=== PATIENT | male | born 1955 | race Caucasian/White ===

== ENCOUNTER 2022-09-09 | Inpatient (IN) ==
--- NOTE | 2022-09-09 00:17 | Emergency Department Note ---
History of Present Illness General Chief complaint: Ankle Pain Stated complaint: ETOH Time Seen by Provider: 09/09/22 00:06 History of Present Illness 67-year-old male presents emergency department he states that he was drinking beer and 1/5 of vodka tonight he was taking a nap he woke up he had to go to the bathroom as he was walking to the bathroom his right leg gave out and he heard a crunching sound in his leg. Patient states he was able to make it to the bathroom to urinate but was having difficulty walking on his right leg. Patient denies hitting his head denies neck pain denies chest pain denies shortness of breath denies any presyncopal symptoms prior to to this event. Patient states that he has neuropathy in his leg just gave out. Patient has no other complaints. There are no other mitigating or alleviating factors. Home Medications Medication Instructions Recorded Confirmed Type albuterol sulfate 90 mcg/actuation 2 puff inhalation DIRECTED PRN 09/09/22 09/09/22 History aerosol inhaler Shortness Of Breath amlodipine 5 mg tablet 5 mg PO DAILY 09/09/22 09/09/22 History aspirin 81 mg tablet,delayed 81 mg PO DAILY 09/09/22 09/09/22 History release atorvastatin 80 mg tablet 80 mg PO DAILY 09/09/22 09/09/22 History cholecalciferol (vitamin D3) 25 25 mcg PO DAILY 09/09/22 09/09/22 History mcg (1,000 unit) capsule (Vitamin D3) cyanocobalamin (vitamin B-12) 1,000 mcg PO DAILY 09/09/22 09/09/22 History 1,000 mcg tablet (Vitamin B-12) doxepin 6 mg tablet 6 mg PO HS PRN Sleep 09/09/22 09/09/22 History duloxetine 20 mg capsule,delayed 20 mg PO DAILY 09/09/22 09/09/22 History release sprinkle ezetimibe 10 mg tablet (Zetia) 10 mg PO DAILY 09/09/22 09/09/22 History gabapentin 300 mg capsule 300 mg PO TID 09/09/22 09/09/22 History lisinopril 20 mg tablet 20 mg PO BID 09/09/22 09/09/22 History metoprolol tartrate 50 mg tablet 50 mg PO BID 09/09/22 09/09/22 History multivitamin 1 tab PO DAILY 09/09/22 09/09/22 History omeprazole 20 mg tablet,delayed 20 mg PO DAILY 09/09/22 09/09/22 History release potassium citrate 99 mg capsule 99 mg PO DAILY 09/09/22 09/09/22 History Allergies Allergy/AdvReac Type Severity Reaction Status Date / Time No Known Allergies Allergy Verified 09/09/22 00:48 Past Med/Surg History Social History Smoking Status: Current every day smoker Tobacco Type: Cigarettes Feels Safe at Home: Yes Immunizations: Past medical history hypertension, prior stroke Review of Systems A total of 10 systems reviewed and were otherwise negative Musculoskeletal: + joint pain and + deformity Physical Exam Vital Signs Vital Signs - 24 hr 09/09/22 00:11 09/09/22 00:21 09/09/22 00:21 Temperature 36.8 C 36.8 C Temperature Source Oral Oral Pulse Rate 76 72 Pulse Rate [Apical] Pulse Rate [Left Finger] 72 Pulse Rhythm [Apical] Pulse Strength [Apical] Respiratory Rate 18 18 Respiratory Effort / Characteristics Respiratory Depth Respiratory Pattern Blood Pressure 85/59 L Blood Pressure [Right Arm] 85/59 L Blood Pressure Mean 67 Blood Pressure Mean [Right Arm] 67 Blood Pressure Position Lying Pulse Oximetry 93 95 Oxygen Delivery Method Non-rebreather Non-rebreather Oxygen Flow Rate 5 Sepsis Recent Fever Within 48 Hours No Sepsis New/Unexplained Change in Mental Status No Sepsis Action Taken by Nursing No Action Required 09/09/22 00:21 09/09/22 02:21 Temperature Temperature Source Pulse Rate 71 Pulse Rate [Apical] 74 Pulse Rate [Left Finger] Pulse Rhythm [Apical] Regular Pulse Strength [Apical] Normal Respiratory Rate 20 Respiratory Effort / Characteristics Non-Labored Spontaneous Respiratory Depth Normal Respiratory Pattern Regular Blood Pressure Blood Pressure [Right Arm] 113/78 Blood Pressure Mean Blood Pressure Mean [Right Arm] 89 Blood Pressure Position Pulse Oximetry 5 L 92 Oxygen Delivery Method Non-rebreather Nasal Cannula Oxygen Flow Rate 4 Sepsis Recent Fever Within 48 Hours Sepsis New/Unexplained Change in Mental Status Sepsis Action Taken by Nursing GENERAL: Patient is awake alert in no acute distress patient is resting comfortably and showing no signs of anxiety EYES: The conjunctivae are clear. The pupils are round and reactive. EARS, NOSE, MOUTH AND THROAT: The nose is without any evidence of any deformity. Mucous membranes are moist. Tongue is midline. NECK: The neck is nontender and supple. RESPIRATORY: Normal respiratory effort is noted there is no evidence of wheezing rhonchi or rales CARDIOVASCULAR: Regular rate and rhythm noted there no murmurs rubs or gallops normal S1 normal S2. GASTROINTESTINAL: The abdomen is soft. Abdomen is nontender. PELVIS: The Pelvis is stable. No tenderness to palpation is noted. BACK: No midline tenderness or or step-off noted range of motion in flexion extension as well as rotation no signs of muscle spasm noted MUSCULOSKELETAL/EXTREMITIES: Right lower extremity - there is an obvious deformity of the distal tib-fib region; patient is neurovascularly intact distally SKIN: There is no obvious evidence of any rash. There are no petechiae, pallor or cyanosis noted. NEUROLOGIC: Patient is awake alert and oriented x3 strength is symmetric Course Reevaluation(s) Reevaluation #1: Patient had an episode of low blood pressure 66/48, patient was started on IV fluids, the patient is alert talking to me GCS of 15 Time: 01:06 Reevaluation #2: Patient was much improved after 2 L of fluid, the patient was also started on IV Zosyn, the case was discussed with the hospitalist for admission Time: 03:37 Consultations Consultation #1: Case was discussed with the [facility] hospitalist for admission Administered Medications Discontinued Medications Sodium Chloride (Nss 1000ml) 1,000 mls @ 999 mls/hr IV .Q1H1M ONE Stop: 09/09/22 01:56 Last Infusion: 09/09/22 02:49 Dose: 0 mls/hr Documented By: Admin: 09/09/22 01:57 Dose: 999 mls/hr Documented By: BRYAN Sodium Chloride (Nss 1000ml) 1,000 mls @ 999 mls/hr IV .Q1H1M ONE Stop: 09/09/22 02:53 Last Infusion: 09/09/22 02:49 Dose: 0 mls/hr Documented By: Admin: 09/09/22 01:58 Dose: 999 mls/hr Documented By: BRYAN Piperacillin Sod/Tazobactam Sod (Zosyn) 4.5 gm in 120 mls @ 240 mls/hr IV NOW ONE Stop: 09/09/22 02:22 Last Infusion: 09/09/22 03:01 Dose: 0 mls/hr Documented By: Admin: 09/09/22 02:33 Dose: 240 mls/hr Documented By: BRYAN Critical Care Time Critical Care Time: Yes Total Critical Care Time: 45 I have personally spent greater than 45 minutes of critical care time in the direct management of this patient. This includes bedside care, interpretation of diagnostic studies, and testing, discussion with consultants, patient, and family members, and other required patient management activities. These minutes are in excess of all separately billable procedures. Medical Decision Making Medical Records Attestation: I reviewed the patient's medical records. Home Medications Current Medication List: was personally reviewed by me Laboratory Data Attestation: I reviewed the patient's lab results. Patient has an elevated creatinine 09/09/22 00:16 09/09/22 00:16 Lab Results 09/09/22 09/09/22 09/09/22 Range/Units 00:16 00:16 00:16 WBC 11.94 H (4.8-10.8) K/ul RBC 4.13 L (4.70-6.10) M/uL Hgb 13.6 L (14.0-18.0) g/dl Hct 39.2 L (42.0-52.0) % MCV 94.9 (80.0-100.0) fL MCH 32.9 (25.0-34.0) pg MCHC 34.7 (32.0-36.0) g/dL RDW Std Deviation 47.2 H (36.4-46.3) fL RDW Coeff of Shayan 13.5 (11.5-14.5) % Plt Count 221 (130-400) K/uL MPV 11.1 (9.4-12.4) fL Immature Gran % (Auto) 0.3 % Neut % (Auto) 36.2 % Lymph % (Auto) 50.2 % Grand % (Auto) 10.2 % Eos % (Auto) 2.3 % Baso % (Auto) 0.8 % Neut # (Auto) 4.32 (1.40-6.50) K/uL Lymph # (Auto) 5.99 H (1.2-3.4) K/uL Grand # (Auto) 1.22 H (0.11-0.59) K/uL Eos # (Auto) 0.28 (0-0.50) K/uL Baso # (Auto) 0.09 (0-0.2) K/uL Immature Gran # (Auto) 0.04 (0.01-0.20) K/uL RBC Morphology Unremarkable PT 11.0 (9.0-12.0) Seconds INR 1.0 (0.9-1.1) Sodium 133 L (136-145) mmol/L Potassium 4.3 (3.5-5.1) mmol/L Chloride 99 (98-107) mmol/L Carbon Dioxide 19 L (21-32) mmol/L Anion Gap 15 H (3-11) BUN 18 (6-23) mg/dl Creatinine 3.50 H (0.6-1.4) mg/dl Est Cr Clr Drug Dosing 21.7 ml/min Est GFR ( Amer) 19.8 ml/min Est GFR (Non-Af Amer) 17.1 ml/min BUN/Creatinine Ratio 5.1 L (10-20) Glucose 105 H (70-99(Fasting)) mg/dl Lactate (0.4-2.0) mmol/L Calcium 9.4 (8.5-10.1) mg/dl Magnesium 2.1 (1.7-2.4) mg/dl Total Bilirubin 0.9 (0.2-1.0) mg/dl AST 21 (13-39) U/L ALT 20 (7-52) U/L Alkaline Phosphatase 60 (34-104) U/L Total Protein 7.5 (6.0-8.3) gm/dl Albumin 4.0 (3.4-5.0) gm/dl Globulin 3.5 (2.5-4.0) gm/dl Albumin/Globulin Ratio 1.1 (0.9-2) Ethyl Alcohol mg/dL (<10.0) mg/dl SARS-CoV-2, RNA, NAAT (NEGATIVE) 09/09/22 09/09/22 09/09/22 Range/Units 00:16 00:20 02:15 WBC (4.8-10.8) K/ul RBC (4.70-6.10) M/uL Hgb (14.0-18.0) g/dl Hct (42.0-52.0) % MCV (80.0-100.0) fL MCH (25.0-34.0) pg MCHC (32.0-36.0) g/dL RDW Std Deviation (36.4-46.3) fL RDW Coeff of Shayan (11.5-14.5) % Plt Count (130-400) K/uL MPV (9.4-12.4) fL Immature Gran % (Auto) % Neut % (Auto) % Lymph % (Auto) % Grand % (Auto) % Eos % (Auto) % Baso % (Auto) % Neut # (Auto) (1.40-6.50) K/uL Lymph # (Auto) (1.2-3.4) K/uL Grand # (Auto) (0.11-0.59) K/uL Eos # (Auto) (0-0.50) K/uL Baso # (Auto) (0-0.2) K/uL Immature Gran # (Auto) (0.01-0.20) K/uL RBC Morphology PT (9.0-12.0) Seconds INR (0.9-1.1) Sodium (136-145) mmol/L Potassium (3.5-5.1) mmol/L Chloride (98-107) mmol/L Carbon Dioxide (21-32) mmol/L Anion Gap (3-11) BUN (6-23) mg/dl Creatinine (0.6-1.4) mg/dl Est Cr Clr Drug Dosing ml/min Est GFR ( Amer) ml/min Est GFR (Non-Af Amer) ml/min BUN/Creatinine Ratio (10-20) Glucose (70-99(Fasting)) mg/dl Lactate 2.6 H* (0.4-2.0) mmol/L Calcium (8.5-10.1) mg/dl Magnesium (1.7-2.4) mg/dl Total Bilirubin (0.2-1.0) mg/dl AST (13-39) U/L ALT (7-52) U/L Alkaline Phosphatase (34-104) U/L Total Protein (6.0-8.3) gm/dl Albumin (3.4-5.0) gm/dl Globulin (2.5-4.0) gm/dl Albumin/Globulin Ratio (0.9-2) Ethyl Alcohol mg/dL 220.8 H (<10.0) mg/dl SARS-CoV-2, RNA, NAAT NEGATIVE (NEGATIVE) Imaging Data Attestation: I personally reviewed and interpreted this imaging study as follows: My Impression: Tib-fib x-ray interpreted by me positive for proximal fibula fracture and distal tibia fracture; chest x-ray interpreted by me negative for infiltrate CTs reviewed by me and appreciate radiologist interpretation ECG Data Attestation: I personally reviewed and interpreted this ECG as follows: Additional Comments: EKG interpreted by me normal sinus rhythm rate of 69 normal intervals normal axis no obvious ST segment elevation or depression MDM Narrative Medical decision making differential diagnosis includes tib-fib fracture, sprain strain contusion, alcohol intoxication Plan is to check labs, x-ray EMS report was reviewed by me Patient underwent trauma scans Patient has a proximal fibula and distal tibia fractures Patient clinically is septic, has a pneumonia in the left lower lobe was hypotensive has an elevated alcohol level, had received IV fluids, had received IV antibiotics Patient will be admitted for orthopedic fractures, sepsis Impression & Plan Tibia/fibula fracture, Acute hypotension, Alcohol intoxication, Acute renal insufficiency, Sepsis, Pneumonia Discharge Plan Visit Data Chief Complaint: Ankle Pain Stated Complaint: ETOH ED Provider: Paul Dutton Discharge Problem: Tibia/fibula fracture, Acute hypotension, Alcohol intoxication, Acute renal insufficiency, Sepsis, Pneumonia Patient Disposition: Admitted As Inpatient Forms Stand Alone Forms: My [facility] Prescriptions Prescriptions: No Action multivitamin Tablet 1 tab PO DAILY atorvastatin 80 mg Tablet 80 mg PO DAILY lisinopril 20 mg Tablet 20 mg PO BID cyanocobalamin (vitamin B-12) [Vitamin B-12] 1,000 mcg Tablet 1,000 mcg PO DAILY amlodipine 5 mg Tablet 5 mg PO DAILY aspirin 81 mg Tablet,Delayed Release (Dr/Ec) 81 mg PO DAILY metoprolol tartrate 50 mg Tablet 50 mg PO BID gabapentin 300 mg Capsule 300 mg PO TID albuterol sulfate 90 mcg/actuation Hfa Aerosol Inhaler 2 puff INHALATION DIRECTED PRN (Reason: Shortness Of Breath) cholecalciferol (vitamin D3) [Vitamin D3] 25 mcg (1,000 unit) Capsule 25 mcg PO DAILY ezetimibe [Zetia] 10 mg Tablet 10 mg PO DAILY omeprazole 20 mg Tablet,Delayed Release (Dr/Ec) 20 mg PO DAILY doxepin 6 mg Tablet 6 mg PO HS PRN (Reason: Sleep) duloxetine 20 mg Capsule, Delayed Rel Sprinkle 20 mg PO DAILY potassium citrate 99 mg Capsule 99 mg PO DAILY Referrals Referrals: PCP,NO [Primary Care Provider] -
[2022-09-09 00:45] LABS: Hematocrit (blood only) 39.2 % (42.0-52.0); Hemoglobin 13.6 g/dl (14.0-18.0); Mean Corpuscular Hemoglobin 32.9 pg (25.0-34.0); Mean Corpuscular Hgb Conc 34.7 g/dL (32.0-36.0); Mean Corpuscular Volume 94.9 fL (80.0-100.0); Mean Platelet Volume 11.1 fL (9.4-12.4); Platelet Count 221 K/uL (130-400); RDW Coefficient of Variation 13.5 % (11.5-14.5); RDW Standard Deviation 47.2 fL (36.4-46.3); Red Blood Count 4.13 M/uL (4.70-6.10); White Blood Count 11.94 K/ul (4.8-10.8)
[2022-09-09] MEDS ORDERED: SODIUM CHLORIDE 0.9% 1000ML 1,000 ML IV ONE ×2 (00:56→01:53)
[2022-09-09 01:01] LABS: Albumin Globulin Ratio 1.1 (0.9-2); BUN Creatinine Ratio 5.1 (10-20); Bilirubin,Total 0.9 mg/dl (0.2-1.0); Calcium 9.4 mg/dl (8.5-10.1); Creatinine Clr Calc Pharmacy 21.7 ml/min; Est GFR (African American) 19.8 ml/min; Est GFR (Non-African American) 17.1 ml/min; Globulin 3.5 gm/dl (2.5-4.0); Magnesium 2.1 mg/dl (1.7-2.4); Potassium 4.3 mmol/L (3.5-5.1); Total Protein 7.5 gm/dl (6.0-8.3)
[2022-09-09 01:24] LABS: Basophils # (auto) 0.09 K/uL (0-0.2); Basophils % (auto) 0.8 %; Eosinophils # (auto) 0.28 K/uL (0-0.50); Eosinophils % (auto) 2.3 %; Immature Granulocytes # (auto) 0.04 K/uL (0.01-0.20); Immature Granulocytes % (auto) 0.3 %; Lymphocytes # (auto) 5.99 K/uL (1.2-3.4); Lymphocytes % (auto) 50.2 %; Monocytes # (auto) 1.22 K/uL (0.11-0.59); Monocytes % (auto) 10.2 %; Neutrophils # (auto) 4.32 K/uL (1.40-6.50); Neutrophils % (auto) 36.2 %; RBC Morphology Unremarkable
[2022-09-09] MEDS ORDERED: PIPERACILLIN/TAZOBACTAM 4.5 GM/120 ML BAG IV ONE (01:53)
--- NOTE | 2022-09-09 03:43 | Emergency Department Note ---
ED Visit Note This patient was placed in a long-leg splint in the right lower extremity by the technology infusion specialist. I did reevaluate after splint application the patient is neurovascularly intact distally .
[2022-09-09] MEDS ORDERED: ACETAMINOPHEN 325 MG TAB PO PRN (06:29)
[2022-09-09] MEDS ORDERED: POLYETHYLENE (MIRALAX) 17 GM PACK PO PRN (06:29)
[2022-09-09] MEDS ORDERED: HYDROmorphone INJ 0.5 MG/0.5 ML SYR IV PRN (06:29)
[2022-09-09] MEDS ORDERED: ALBUTEROL HFA 8 GM INHALER INH PRN (06:29)
[2022-09-09] MEDS ORDERED: chlordiazePOXIDE ALCOHOL WITHDRAWL 25MG PO STA (06:29)
[2022-09-09] MEDS ORDERED: LORazepam 2 MG/1 ML VIAL IV PRN ×3 (06:29)
[2022-09-09] MEDS ORDERED: Ativan IV Alcohol Withdrawal--Active Protocol IV PRN (06:29)
[2022-09-09] MEDS ORDERED: NITROGLYCERIN SL 0.4 MG/TAB TAB SL PRN (06:29)
--- NOTE | 2022-09-09 06:33 | CT Scan Report ---
CT OF THE CERVICAL SPINE WITHOUT CONTRAST CLINICAL HISTORY: trauma COMPARISON STUDY: No previous studies for comparison. TECHNIQUE: Helical axial images of the cervical spine were obtained without IV contrast. Sagittal a nd coronal reconstructions were viewed. Automated exposure control was utilized for the study. A do se lowering technique was utilized adhering to the principles of ALARA. FINDINGS: There is straightening of the cervical lordosis. Vertebral body heights are maintained. No acute cervical spine fracture or subluxation is present. There is no prevertebral edema. Facet joints are intact. Moderate multilevel degenerative changes within the cervical spine are present. IMPRESSION: No acute cervical spine fracture or subluxation. ACT 112: Negative or not required by law. Electronically signed by: Edmund Steinberg M.D. 09/09/2022 6:30 AM
[2022-09-09] MEDS: SODIUM CHLORIDE 0.9% 1000ML 1,000 ML IV SCH ×3 (06:46→23:15)
[2022-09-09] MEDS ORDERED: MULTI-VITAMIN INFUSION 10 ML, THIAMINE HCL 100 MG, FOLIC ACID 1 MG in SODIUM CHLORIDE 0... IV ONE (07:00)
--- NOTE | 2022-09-09 07:00 | History and Physical Report ---
DATE OF ADMISSION: 09/09/2022. CHIEF COMPLAINT: Status post fall, right tibia-fibula fracture. HISTORY OF PRESENT ILLNESS: This is a 67-year-old male, who goes to [place], comes with past medical history significant for hypertension, looks like he had three strokes, last stroke was 10 years ago and no residual weakness, hyperlipidemia. It seems he also has depression, GERD and peripheral neuropathy in the lower extremities, thinks it is coming from his back, but did not see any spine surgeon yet, and ongoing tobacco abuse and alcoholism. He says he smokes since last 57 years one pack a day and he also drinks four beers regularly every day and every other day drinks one-fifth of whiskey, today he drank 4 beers and one- fifth of whiskey and he was trying to go to bathroom, his legs gave away and he fell down, fell on knees he was able to get up, but he was in lot of pain, was brought into ER and found to have proximal fibula and distal tibia fracture. Long leg splint was placed in right lower extremity, in the ER. The patient was also hypotensive when he came in with blood pressure in the 80s, improved with fluids and his lactate was 2.6. CT of the chest preliminary report showing left lower lobe infiltrate. The patient is currently resting comfortably, hemodynamically stable, alert and oriented. Denies any headache. Denies any dizziness, No blurred visions, no earache, no runny nose, no sore throat, no cough. No difficulty swallowing. Eating and drinking okay. No chest pain, no shortness of breath, no nausea, no abdominal pain. Normal bowel and bladder movements. ALLERGIES: No known drug allergies. PAST MEDICAL HISTORY: As mentioned above. PAST SURGICAL HISTORY: The patient denies any surgeries. MEDICATIONS: The patient on albuterol 2 puffs inhalation q. 4 hours p.r.n., amlodipine 5 mg p.o. daily, aspirin 81 mg p.o. daily, atorvastatin 80 mg p.o. daily, vitamin D 25 mcg p.o. daily, vitamin B12 1000 mcg p.o. daily, doxepin 6 mg p.o. at bedtime p.r.n., duloxetine 20 mg p.o. daily, Zetia 10 mg p.o. daily, gabapentin 300 mg p.o. t.i.d., lisinopril 20 mg p.o. b.i.d., metoprolol tartrate 50 mg p.o. b.i.d., multivitamins 1 tablet p.o. daily, omeprazole 20 mg p.o. daily, potassium 99mg p.o. daily. FAMILY HISTORY: Denies any family history. SOCIAL HISTORY: Smokes 1 pack a day. Drinks alcohol as mentioned above. REVIEW OF SYSTEMS: As per HPI. Rest of review of systems is negative. PHYSICAL EXAMINATION: GENERAL: The patient is of moderate build, not in acute distress. Alert and oriented. VITAL SIGNS: Temperature 36.8, pulse 82, respiratory rate 18, blood pressure when he came in was 85/45, currently 107/64, oxygen 94%, currently on 4 L. HEENT: Pupils equal, round and reactive to light. Oral mucosa moist. NECK: No JVD, no neck masses. CARDIOVASCULAR: S1 and S2 heard. Regular rate and rhythm. No murmur, no gallop. RESPIRATORY SYSTEM: Normal AP diameter. No accessory muscle use. No wheezing or crackles. ABDOMEN: Soft, bowel sounds present, nontender, no distention. CENTRAL NERVOUS SYSTEM: Alert and oriented. Speech is clear. No facial droop. Obeys simple commands. EXTREMITIES: Right lower extremity is placed in long leg splint. No erythema seen. LABORATORY DATA: WBC 11.9, hemoglobin 13.6, hematocrit 39.2, platelets 221. PT 11, INR 1. Sodium 133, potassium 4.3, chloride 99, CO2 19, BUN 18, creatinine 3.5, glucose 105, lactate 2.6, calcium 9.4, magnesium 2.1, total bilirubin 0.9, AST 221, ALT 20, alkaline phosphatase 60 Ethyl alcohol 220. SARS-CoV-2 rapid test negative. IMAGING DATA: Tibia-fibula x-ray looks like proximal fibula and distal tibia fracture. Chest CT, preliminary report, showing old rib fractures, right 2nd rib fracture could be more recent, compression fracture of T12 vertebra, indeterminate age, consolidation left lower lobe infiltrate,, this looks more like pneumonia, no pneumothorax, no pneumomediastinum. CT of the head, preliminary report, old right thalamic infarct, old left basal ganglia infarct. No acute findings. Cervical spine CT, preliminary report, no acute findings. CT abdomen and pelvis, preliminary report, no acute findings. Chest x-ray, no acute findings. EKG, normal sinus rhythm, rate of 69, no acute ST changes seen. ASSESSMENT AND PLAN: This is a 67-year-old male, status post fall and right tibia-fibula fracture. 1. Right tibia-fibula fracture. Long leg splint placed in the ER. Pain control. Consult Orthopedics. Further management as per Orthopedics. 2. History of stroke in the past with no residual weakness. The patient will continue his aspirin, Plavix and statin. 3. Acute kidney injury. Presents with a creatinine of 3.5. We do not know his baseline. Avoid nephrotoxic agents. We will hold his lisinopril. Hold his potassium supplements. Getting fluids. We will follow the repeat labs. If not worsening, we will consult Nephrology. 4. Possible sepsis. Preseted with hypotension, improved with fluids lactic acid 2.6. Mostly secondary to pneumonia, left lower infiltrate on CAT scan. We will follow the final imaging studies. We will empirically place him on Zosyn and doxycycline. Follow the response. 5. Alcoholism. Drinks four beers a day every day and drinks one-fifth of whiskey every other day. Today alcohol level was 220. Placed him on alcohol withdrawal protocol with Librium and Ativan p.r.n., banana bag, IV thiamine and folic acid. Monitor closely for alcohol withdrawal symptoms. 6. Tobacco abuse: Needs counseling. 7. History of peripheral neuropathy in lower extremities. Continue his home gabapentin. 8. Hypertension. Holding metoprolol, amlodipine. Holding his lisinopril. Was hypotensive Monitor his blood pressure. 9. Gastroesophageal reflux disease: Continue omeprazole. 10. Deep venous thrombosis prophylaxis: Could not place any sequential compression device because of the leg fracture. IF no procedure we will place him on heparin subcutaneous. DISPOSITION: Closely monitor in the tele floor. Level 1 full code . To be determined. Job ID: [id number] [facility]
--- NOTE | 2022-09-09 07:13 | CT Scan Report ---
HEAD CT NONCONTRAST CT DOSE: HISTORY: fall TECHNIQUE: Multiaxial CT images of the head were performed without the use of intravenous contrast. A utomated exposure control was utilized for this study. A dose lowering technique was utilized adheri ng to the principles of ALARA. Comparison: None. Findings: Mild mucosal thickening within the paranasal sinuses. The right mastoid air cells are opaci fied. The left mastoid air cells are clear. The calvarium and skull base are intact. There is no mass , hematoma, midline shift, acute infarct. White matter hypodensity is nonspecific but suggestive of m icrovascular ischemic change. The ventricles and sulci demonstrate mild age-related involutional mccrary ges. Old lacunar infarcts seen in the left basal ganglia and right thalamus. Impression: No acute intracranial abnormality. Atrophy and microvascular ischemic changes. ACT 112: Negative or not required by law. Electronically signed by: Abiodun Camilo M.D. 09/09/2022 7:12 AM
[2022-09-09] MEDS: DOXYCYCLINE HYCLATE 100 MG in DEXTROSE 5% 100 ML IV SCH ×2 (07:55→19:13)
--- NOTE | 2022-09-09 07:58 | CT Scan Report ---
CT chest diagnostic wo con, CT abd pelvis wo con CT DOSE: 673.69 mGy.cm HISTORY: Fall. TRAUMA TECHNIQUE: Multiaxial CT images of the chest , abdomen, and pelvis were performed without contrast. A dose lowering technique was utilized adhering to the principles of ALARA. COMPARISON: Abdomen and pelvis CT 10/29/2005. FINDINGS: Chest CT: No acute fractures identified within the chest. There are multiple healing/healed bilateral rib fractures. Moderate anterior wedging at T12 is technically age indeterminate but likely chronic. No pneumothorax. Emphysema. Diffuse bronchial wall thickening with mucoid impaction of the left lowe r lobe bronchi. There is also focal area of mucoid material within the right mainstem bronchus. Conso lidation within the majority of the left lower lobe. There are patchy airspace opacities within the r ight lower lobe posteriorly. This favors a pneumonia and could be due to aspiration. A 5 mm subpleura l nodule on the right minor fissure on image 132. A 6 mm nodule within the right middle lobe on image 152. No mediastinal or hilar lymphadenopathy. Normal esophagus. Calcified plaque within the normal c aliber thoracic aorta. Severe coronary artery calcifications are noted. Abdomen/pelvis CT: No pneumoperitoneum. No pneumatosis. No acute fractures identified. Hepatic steato sis. The unenhanced gallbladder, pancreas, spleen, and adrenal glands unremarkable. Bilateral renal v ascular calcifications are noted. No hydronephrosis. No retroperitoneal lymphadenopathy or hematoma. There is a mildly ectatic and calcified abdominal aorta. Mild bladder wall thickening may be due to u nderdistention or chronic outlet obstruction from the mildly enlarged prostate gland. No pelvic free fluid. Suboptimal evaluation for bowel pathology due to the lack of intravenous and oral contrast. Ho wever, there is no definite bowel wall thickening or obstruction. Normal appendix. IMPRESSION: 1. Multiple healing/healed bilateral rib fractures. No pneumothorax. 2. Moderate anterior wedging at T12 is technically age indeterminate but likely chronic. 3. Emphysema. 4. Left greater than right lower lobe airspace opacities likely representing a pneumonia. This favors an aspiration pneumonia given the bronchial mucoid impaction. 5. Emphysema. 6. No acute traumatic process within the chest, abdomen, or pelvis. 7. A 6 mm nodule within the right middle lobe. Follow-up recommended below. 8. Additional findings as described above. Please refer to below summary of Fleischner criteria recommendations for follow-up of incidental CT n odules (Karri Dillon, Guidelines for management of small pulmonary nodules detected on CT scans: A sta tement from the Fleischner Society, Radiology 237: [phone].) SOLID NODULES Solitary nodule size: <6 mm * Low risk patients: no follow-up needed * high risk patients: optional CT at 12 months Solitary nodule size: 6-8 mm * Low risk patients: follow-up at 6-12 months, then consider further follow-up at 18-24 months * high risk patients: initial follow-up CT at 6-12 months and then at 18-24 months if no change Solitary nodule size: >8 mm * either low or high risk patients - consider follow-up CT at 3 months, and/or CT-PET, and/or biopsy Multiple nodules size: <6 mm * Low risk patients: no routine follow-up * high risk patients: optional CT at 12 months Multiple nodules size: 6-8 mm * Low risk patients: follow-up at 3-6 months, then consider further follow-up at 18-24 months * high risk patients: follow-up at 3-6 months, then at 18-24 months if no change Multiple nodules size: >8 mm * Low risk patients: follow-up at 3-6 months, then consider further follow-up at 18-24 months * high risk patients: follow-up at 3-6 months, then at 18-24 months if no change Note: newly detected indeterminate nodule in persons 35 years of age or older. * Low risk patients: minimal or absent history of smoking and/or other known risk factors * high risk patients: history of smoking or of other known risk factors (e.g. first degree relative with lung cancer, or exposure to asbestos, radon, uranium) * if a nodule up to 8 mm is partly solid or is ground glass further follow-up is required after 24 m onths to exclude possible slow growing adenocarcinoma (ESTELA) SUBSOLID NODULES Solitary pure ground-glass nodule * nodule size <6 mm - no CT follow-up required * nodule size >=6 mm - follow-up CT at 6-12 months, then every 2 years until 5 years Solitary part-solid nodule * nodule size <6 mm - no CT follow-up required * nodule size >=6 mm - follow-up CT at 3-6 months. If unchanged, and solid component remains <6 mm, then annual follow-up for 5 years Multiple subsolid nodules * nodule size <6 mm - follow-up CT at 3-6 months, consider further follow-up at 2 and 4 years if sta ble * nodule size >=6 mm - follow-up CT at 3-6 months, subsequent management based on the most suspiciou s nodule(s) ACT 112: Positive. There are findings on this exam that require communication between the performing entity and the patient following Patient Test Result Information Act ([place] Act 112) guidelines. Electronically signed by: Abiodun Camilo M.D. 09/09/2022 7:55 AM
[2022-09-09] MEDS ORDERED: PIPERACILLIN/TAZOBACTAM 3.375 GM in DEXTROSE 5% 100 ML IV SCH (08:00)
[2022-09-09 08:02] LABS: Basophils # (auto) 0.05 K/uL (0-0.2); Basophils % (auto) 0.6 %; Eosinophils % (auto) 2.2 %; Hematocrit (blood only) 35.9 % (42.0-52.0); Hemoglobin 12.6 g/dl (14.0-18.0); Immature Granulocytes # (auto) 0.02 K/uL (0.01-0.20); Immature Granulocytes % (auto) 0.2 %; Lymphocytes # (auto) 3.51 K/uL (1.2-3.4); Lymphocytes % (auto) 38.6 %; Mean Corpuscular Hemoglobin 33.4 pg (25.0-34.0); Mean Corpuscular Hgb Conc 35.1 g/dL (32.0-36.0); Mean Corpuscular Volume 95.2 fL (80.0-100.0); Mean Platelet Volume 11.1 fL (9.4-12.4); Monocytes # (auto) 1.19 K/uL (0.11-0.59); Monocytes % (auto) 13.1 %; Neutrophils # (auto) 4.12 K/uL (1.40-6.50); Neutrophils % (auto) 45.3 %; Platelet Count 177 K/uL (130-400); RDW Coefficient of Variation 13.5 % (11.5-14.5); RDW Standard Deviation 46.8 fL (36.4-46.3); Red Blood Count 3.77 M/uL (4.70-6.10); White Blood Count 9.09 K/ul (4.8-10.8)
[2022-09-09] MEDS: THIAMINE HCL 100 MG in SYRINGE 9 ML IV SCH (08:06)
[2022-09-09] MEDS: FOLIC ACID 1 MG in SYRINGE 9.8 ML IV SCH (08:06)
[2022-09-09] MEDS: chlordiazePOXIDE HCl 25 MG CAP PO SCH ×4 (08:09→23:28)
[2022-09-09] MEDS: ASPIRIN 81 MG ECTAB PO SCH (08:10)
[2022-09-09] MEDS: CHOLECALCIFEROL 1,000 UNITS 25 MCG TAB PO SCH (08:10)
[2022-09-09] MEDS: GABAPENTIN 300 MG CAP PO SCH ×3 (08:10→19:11)
[2022-09-09] MEDS: PANTOprazole 40 MG TAB PO SCH (08:10)
[2022-09-09] MEDS: MULTIVITAMIN TAB PO SCH (08:10)
[2022-09-09] MEDS: ATORVASTATIN 40 MG TAB PO SCH (08:10)
[2022-09-09] MEDS: CYANOCOBALAMIN (B-12) 500 MCG TABLET PO SCH (08:10)
[2022-09-09] MEDS: DULoxetine HCL 20 MG CAP PO SCH (08:10)
[2022-09-09] MEDS: EZETIMIBE 10 MG TABLET PO SCH (08:10)
[2022-09-09 08:15] LABS: BUN Creatinine Ratio 7.3 (10-20); Calcium 8.7 mg/dl (8.5-10.1); Creatinine Clr Calc Pharmacy 31.4 ml/min; Est GFR (African American) 30.4 ml/min; Est GFR (Non-African American) 26.2 ml/min; Magnesium 1.9 mg/dl (1.7-2.4); Potassium 3.7 mmol/L (3.5-5.1)
[2022-09-09] MEDS ORDERED: amLODIPine BESYLATE 5 MG TAB PO SCH ×2 (09:00)
[2022-09-09] MEDS: NICOTINE 21 MG/24 HR TDSY TD SCH (10:07)
--- NOTE | 2022-09-09 10:17 | Electrocardiogram Report ---
Test Reason : Blood Pressure : / mmHG Vent. Rate : 069 BPM Atrial Rate : 069 BPM P-R Int : 166 ms QRS Dur : 090 ms QT Int : 416 ms P-R-T Axes : 057 -05 019 degrees QTc Int : 445 ms Normal sinus rhythm Normal ECG When compared with ECG of 28-MAR-2003 21:03, No significant change was found Confirmed by Bishop Krishnamurthy ([id number]) on 09/09/2022 10:17:00 AM Referred By: REFERRED SELF Confirmed By:Anthony Krishnamurthy
--- NOTE | 2022-09-09 10:36 | XRay Report ---
XR chest 1V portable HISTORY: Fall. weakness COMPARISON: None. FINDINGS: No pneumothorax. No pleural effusions. The cardiac silhouette is borderline enlarged. There is emphysema. Bibasilar interstitial thickening most pronounced on the left. The upper lung zones ar e clear. IMPRESSION: 1. Emphysema. 2. Bibasilar interstitial thickening most pronounced on the left. This could be due to vascular crowd ing from the emphysema or a low-grade pneumonitis. ACT 112: Negative or not required by law. Electronically signed by: Abiodun Camilo M.D. 09/09/2022 10:34 AM
--- NOTE | 2022-09-09 10:46 | XRay Report ---
XR tibia fibula RT 2V CLINICAL HISTORY: Right lower leg pain. COMPARISON STUDY: None. FINDINGS: Mildly displaced oblique fracture within the right fibular neck. This demonstrates up to 3 mm of lateral displacement. There is also displaced oblique fracture within the distal shaft of the r ight tibia demonstrate an 1.2 cm of lateral displacement. Ankle mortise appears intact. Soft tissue s welling within the right lower leg. IMPRESSION: Right tibial and fibular fractures as described above. ACT 112: Negative or not required by law. Electronically signed by: Abiodun Camilo M.D. 09/09/2022 10:45 AM
--- NOTE | 2022-09-09 15:17 | Orthopedic Consultation ---
Date of Consultation September 09, 2022 Assessment & Plan (1) Tibia/fibula fracture: Right displaced distal tibia fracture/proximal fibular fracture. Patient will require IM nailing of his right tibia. Dr. Cage has been notified and is in agreement to do his surgery tomorrow. We have discussed the case with the medicine service as well as with anesthesia. Patient was admitted with a 200 alcohol level and it was felt that surgery should be held for at least 1 day. There was also some concerns of sepsis however WBC normal, Blood Cx ngtd, and pt remaining Afeb. We will plan for the IM rodding of his right tibia tomorrow. CT scan of the right tibia has been ordered to rule out any further extension of fracture into the joint. Plans to be to make him n.p.o. after midnight and plan for the OR tomorrow at 1 PM. 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 It seems he also has depression, GERD and peripheral neuropathy in the lower extremities, thinks it is coming from his back, but did not see any spine surgeon yet, and ongoing tobacco abuse and alcoholism. Patient is currently awake lying in his bed alert. He states that he became very intoxicated and ended up falling. He was unable to ambulate secondary to his right lower extremity injury. He states that he had to slide down on his buttocks 15 steps to actually meet the ambulance crew. He denies losing consciousness. He denies injury anywhere else at this time. He was brought to the emergency room here by the squad and seen by the staff in the emergency room. X-rays were taken and was found that he had a proximal fibular fracture as well as a displaced right distal tibia fracture. He was placed into a splint and he was admitted by the hospitalist service. We have been asked to take care of his right distal tibia fracture. Allergies Allergy/AdvReac Type Severity Reaction Status Date / Time No Known Allergies Allergy Verified 09/09/22 00:48 Home Medications Medication Instructions Recorded Confirmed Type albuterol sulfate 90 mcg/actuation 2 puff inhalation DIRECTED PRN 09/09/22 09/09/22 History aerosol inhaler Shortness Of Breath amlodipine 5 mg tablet 5 mg PO DAILY 09/09/22 09/09/22 History aspirin 81 mg tablet,delayed 81 mg PO DAILY 09/09/22 09/09/22 History release atorvastatin 80 mg tablet 80 mg PO DAILY 09/09/22 09/09/22 History cholecalciferol (vitamin D3) 25 25 mcg PO DAILY 09/09/22 09/09/22 History mcg (1,000 unit) capsule (Vitamin D3) cyanocobalamin (vitamin B-12) 1,000 mcg PO DAILY 09/09/22 09/09/22 History 1,000 mcg tablet (Vitamin B-12) doxepin 6 mg tablet 6 mg PO HS PRN Sleep 09/09/22 09/09/22 History duloxetine 20 mg capsule,delayed 20 mg PO DAILY 09/09/22 09/09/22 History release sprinkle ezetimibe 10 mg tablet (Zetia) 10 mg PO DAILY 09/09/22 09/09/22 History gabapentin 300 mg capsule 300 mg PO TID 09/09/22 09/09/22 History lisinopril 20 mg tablet 20 mg PO BID 09/09/22 09/09/22 History metoprolol tartrate 50 mg tablet 50 mg PO BID 09/09/22 09/09/22 History multivitamin 1 tab PO DAILY 09/09/22 09/09/22 History omeprazole 20 mg tablet,delayed 20 mg PO DAILY 09/09/22 09/09/22 History release potassium citrate 99 mg capsule 99 mg PO DAILY 09/09/22 09/09/22 History Patient History Social History Smoking Status: Current every day smoker Tobacco Type: Cigarettes Cigarettes Per Day: 1/2 pack day; Hx Alcohol Use: Yes Alcohol type: beer and hard liquor Hx Substance Use: Yes Preferred Language: [place] Communication Ability: Effective 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 He is awake and alert. Oriented x3. No acute distress. Pleasant and cooperative. Results & Data ([facility]) Vital Signs (Past 12 Hours) Vital Signs Temp Pulse Pulse Resp BP BP Pulse Ox 09/09/22 15:00 98 H 18 94 09/09/22 14:57 119/81 09/09/22 15:03 09/09/22 15:02 37.0 C 09/09/22 13:00 89 21 92 09/09/22 13:53 09/09/22 11:57 37.0 C 89 20 139/89 93 09/09/22 08:00 37.1 C 92 09/09/22 07:00 09/09/22 06:29 86 09/09/22 06:34 36.7 C 80 16 135/84 94 09/09/22 06:29 36.7 C 85 21 135/84 93 09/09/22 04:10 82 09/09/22 03:59 85 18 107/64 94 O2 Del Method O2 Flow Rate 09/09/22 15:00 Room Air 09/09/22 14:57 09/09/22 15:03 Room Air 09/09/22 15:02 09/09/22 13:00 09/09/22 13:53 Nasal Cannula 09/09/22 11:57 Nasal Cannula 2 09/09/22 08:00 Nasal Cannula 3 09/09/22 07:00 Nasal Cannula 3 09/09/22 06:29 09/09/22 06:34 Nasal Cannula 4 09/09/22 06:29 Nasal Cannula 4 09/09/22 04:10 09/09/22 03:59 Nasal Cannula 4 Laboratory Results Laboratory Results WBC 9.09 K/ul (4.8-10.8) 09/09/22 07:08 RBC 3.77 M/uL (4.70-6.10) L 09/09/22 07:08 Hgb 12.6 g/dl (14.0-18.0) L 09/09/22 07:08 Hct 35.9 % (42.0-52.0) L 09/09/22 07:08 MCV 95.2 fL (80.0-100.0) 09/09/22 07:08 MCH 33.4 pg (25.0-34.0) 09/09/22 07:08 MCHC 35.1 g/dL (32.0-36.0) 09/09/22 07:08 RDW Std Deviation 46.8 fL (36.4-46.3) H 09/09/22 07:08 RDW Coeff of Shayan 13.5 % (11.5-14.5) 09/09/22 07:08 Plt Count 177 K/uL (130-400) 09/09/22 07:08 MPV 11.1 fL (9.4-12.4) 09/09/22 07:08 Immature Gran % (Auto) 0.2 % 09/09/22 07:08 Neut % (Auto) 45.3 % 09/09/22 07:08 Lymph % (Auto) 38.6 % 09/09/22 07:08 [place] % (Auto) 13.1 % 09/09/22 07:08 Eos % (Auto) 2.2 % 09/09/22 07:08 Baso % (Auto) 0.6 % 09/09/22 07:08 Neut # (Auto) 4.12 K/uL (1.40-6.50) 09/09/22 07:08 Lymph # (Auto) 3.51 K/uL (1.2-3.4) H 09/09/22 07:08 [place] # (Auto) 1.19 K/uL (0.11-0.59) H 09/09/22 07:08 Eos # (Auto) 0.20 K/uL (0-0.50) 09/09/22 07:08 Baso # (Auto) 0.05 K/uL (0-0.2) 09/09/22 07:08 Immature Gran # (Auto) 0.02 K/uL (0.01-0.20) 09/09/22 07:08 RBC Morphology Unremarkable 09/09/22 00:16 PT 11.0 Seconds (9.0-12.0) 09/09/22 00:16 INR 1.0 (0.9-1.1) 09/09/22 00:16 Sodium 138 mmol/L (136-145) 09/09/22 07:08 Potassium 3.7 mmol/L (3.5-5.1) 09/09/22 07:08 Chloride 106 mmol/L (98-107) 09/09/22 07:08 Carbon Dioxide 23 mmol/L (21-32) 09/09/22 07:08 Anion Gap 9 (3-11) 09/09/22 07:08 BUN 18 mg/dl (6-23) 09/09/22 07:08 Creatinine 2.45 mg/dl (0.6-1.4) H D 09/09/22 07:08 Est Cr Clr Drug Dosing 31.4 ml/min 09/09/22 07:08 Est GFR ( Amer) 30.4 ml/min 09/09/22 07:08 Est GFR (Non-Af Amer) 26.2 ml/min 09/09/22 07:08 BUN/Creatinine Ratio 7.3 (10-20) L 09/09/22 07:08 Glucose 132 mg/dl (70-99(Fasting)) H 09/09/22 07:08 Lactate 2.0 mmol/L (0.4-2.0) 09/09/22 04:35 Calcium 8.7 mg/dl (8.5-10.1) 09/09/22 07:08 Magnesium 1.9 mg/dl (1.7-2.4) 09/09/22 07:08 Total Bilirubin 0.9 mg/dl (0.2-1.0) 09/09/22 00:16 AST 21 U/L (13-39) 09/09/22 00:16 ALT 20 U/L (7-52) 09/09/22 00:16 Alkaline Phosphatase 60 U/L (34-104) 09/09/22 00:16 Total Protein 7.5 gm/dl (6.0-8.3) 09/09/22 00:16 Albumin 4.0 gm/dl (3.4-5.0) 09/09/22 00:16 Globulin 3.5 gm/dl (2.5-4.0) 09/09/22 00:16 Albumin/Globulin Ratio 1.1 (0.9-2) 09/09/22 00:16 Vitamin B12 924 pg/ml (180-914) H 09/09/22 07:08 Folate 11.95 ng/ml (>5.38) 09/09/22 07:08 Nasal Screen MRSA (PCR) Negative (Negative) 09/09/22 06:29 Ethyl Alcohol mg/dL 220.8 mg/dl (<10.0) H 09/09/22 00:16 SARS-CoV-2, RNA, NAAT NEGATIVE (NEGATIVE) 09/09/22 00:20 Impressions Chest X-Ray 09/09/22 00:12 XR chest 1V portable HISTORY: Fall. weakness COMPARISON: None. FINDINGS: No pneumothorax. No pleural effusions. The cardiac silhouette is borderline enlarged. There is emphysema. Bibasilar interstitial thickening most pronounced on the left. The upper lung zones are clear. IMPRESSION: 1. Emphysema. 2. Bibasilar interstitial thickening most pronounced on the left. This could be due to vascular crowding from the emphysema or a low-grade pneumonitis. ACT 112: Negative or not required by law. Electronically signed by: Abiodun Camilo M.D. 09/09/2022 10:34 AM Tibia/Fibula X-Ray 09/09/22 00:12 XR tibia fibula RT 2V CLINICAL HISTORY: Right lower leg pain. COMPARISON STUDY: None. FINDINGS: Mildly displaced oblique fracture within the right fibular neck. This demonstrates up to 3 mm of lateral displacement. There is also displaced oblique fracture within the distal shaft of the right tibia demonstrate an 1.2 cm of lateral displacement. Ankle mortise appears intact. Soft tissue swelling within the right lower leg. IMPRESSION: Right tibial and fibular fractures as described above. ACT 112: Negative or not required by law. Cervical Spine CT 09/09/22 00:55 CT OF THE CERVICAL SPINE WITHOUT CONTRAST CLINICAL HISTORY: trauma COMPARISON STUDY: No previous studies for comparison. TECHNIQUE: Helical axial images of the cervical spine were obtained without IV contrast. Sagittal and coronal reconstructions were viewed. Automated exposure control was utilized for the study. A dose lowering technique was utilized adhering to the principles of ALARA. FINDINGS: There is straightening of the cervical lordosis. Vertebral body heights are maintained. No acute cervical spine fracture or subluxation is present. There is no prevertebral edema. Facet joints are intact. Moderate multilevel degenerative changes within the cervical spine are present. IMPRESSION: No acute cervical spine fracture or subluxation. ACT 112: Negative or not required by law. Electronically signed by: Edmund Steinberg M.D. 09/09/2022 6:30 AM
--- NOTE | 2022-09-09 15:48 | Hospitalist Progress Note ---
Date of Service September 09, 2022 Assessment & Plan (1) Tibia/fibula fracture: Plan: Patient is a 67 yr male, status post fall and right tibia-fibula fracture. 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 --Lower Extremity CT pending --CT ABD:Multiple healing/healed bilateral rib fractures. No pneumothorax. Moderate anterior wedging at T12 is technically age indeterminate but likely chronic. Emphysema. Left greater than right lower lobe airspace opacities likely representing a pneumonia. This favors an aspiration pneumonia given the bronchial mucoid impaction. Emphysema. No acute traumatic process within the chest, abdomen, or pelvis. A 6 mm nodule within the right middle lobe. Follow-up recommended below. --CT Head:No acute intracranial abnormality. Atrophy and microvascular ischemic changes. --Neck CT:No acute cervical spine fracture or subluxation. -- Chest CT:Multiple healing/healed bilateral rib fractures. No pneumothorax. Moderate anterior wedging at T12 is technically age indeterminate but likely chronic. Emphysema. Left greater than right lower lobe airspace opacities likely representing a pneumonia. This favors an aspiration pneumonia given the bronchial mucoid impaction. Emphysema. No acute traumatic process within the chest, abdomen, or pelvis. A 6 mm nodule within the right middle lobe. Follow-up recommended below. -- Fall precautions Orthopedics consulted Plan for surgery tomorrow NPO After midnight Acute kidney injury Unknown baseline kidney function Cr:3.5>>2.45 Avoid nephrotoxic agents Hold lisinopril Bladder scan as needed Continue IV fluids Possible sepsis Presented with hypotension, lactic acidosis Possible pneumonia Hypoxia --CT chest as above Blood cultures pending Aspiration precautions next Empirically started on Unasyn, doxycycline Wean off of supplemental oxygen to keep saturations greater than 88% COPD On Albuterol PRN Continues to smoke Alcohol abuse Continue alcohol withdrawal protocol with Librium and Ativan p.r.n. Continue IV thiamine and folic acid Monitor for alcohol withdrawal symptoms. H/O CVA with no residual weakness Continue aspirin, statin. 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 Hypertension. Hold Amlodipine, Lisinopril Decrease metoprolol to 12.5mg BID Monitor BP GERD continue PPI DVT Px: SCDs for now Code Status Full Code Admission and Anticipated Discharge Date Admission Date: September 09, 2022 Subjective Patient is seen and examined at bedside Denies any significant pain of right lower extremity Also denies any chest pain, dyspnea, cough, dizziness, nausea, abdominal pain Discussed with Orthopedics today Review of Systems Review of Systems: All systems reviewed & are unremarkable except as noted in Subjective Physical Exam Physical Exam: Physical Exam: Vitals signs as noted above General Appearance:Moderately built and nourished, no apparent distress Head: normocephalic, Atraumatic Eyes: normal inspection, EOMI Neck: supple, Trachea midline Respiratory/Chest:Decreased breath sounds, scattered wheezes, No accessory muscle use Cardiovascular: S1, S2, No murmur Abdomen/GI:Soft, Non tender, Bowel sounds present Extremities/Musculoskeletal:normal inspection, no edema, RLE in dressing Neurologic/Psych:AAOX3, grossly no focal neurological deficits Skin: normal color, warm Results & Data Results & Data ([facility]) Vital Signs (Past 12 Hours) Vital Signs Temp Pulse Pulse Resp BP BP Pulse Ox 09/09/22 15:00 98 H 18 94 09/09/22 14:57 119/81 09/09/22 15:03 09/09/22 15:02 37.0 C 09/09/22 13:00 89 21 92 09/09/22 13:53 09/09/22 11:57 37.0 C 89 20 139/89 93 09/09/22 08:00 37.1 C 92 09/09/22 07:00 09/09/22 06:29 86 09/09/22 06:34 36.7 C 80 16 135/84 94 09/09/22 06:29 36.7 C 85 21 135/84 93 09/09/22 04:10 82 09/09/22 03:59 85 18 107/64 94 O2 Del Method O2 Flow Rate 09/09/22 15:00 Room Air 09/09/22 14:57 09/09/22 15:03 Room Air 09/09/22 15:02 09/09/22 13:00 09/09/22 13:53 Nasal Cannula 09/09/22 11:57 Nasal Cannula 2 09/09/22 08:00 Nasal Cannula 3 09/09/22 07:00 Nasal Cannula 3 09/09/22 06:29 09/09/22 06:34 Nasal Cannula 4 09/09/22 06:29 Nasal Cannula 4 09/09/22 04:10 09/09/22 03:59 Nasal Cannula 4 Laboratory Results Short CBC 09/09/22 09/09/22 Range/Units 00:16 07:08 WBC 11.94 H 9.09 (4.8-10.8) K/ul Hgb 13.6 L 12.6 L (14.0-18.0) g/dl Hct 39.2 L 35.9 L (42.0-52.0) % Plt Count 221 177 (130-400) K/uL BMP 09/09/22 09/09/22 00:16 07:08 Sodium 133 L 138 Potassium 4.3 3.7 Chloride 99 106 Carbon Dioxide 19 L 23 BUN 18 18 Creatinine 3.50 H 2.45 H D Glucose 105 H 132 H Calcium 9.4 8.7 Liver Function 09/09/22 Range/Units 00:16 Total Bilirubin 0.9 (0.2-1.0) mg/dl AST 21 (13-39) U/L ALT 20 (7-52) U/L Alkaline Phosphatase 60 (34-104) U/L Albumin 4.0 (3.4-5.0) gm/dl
[2022-09-09] MEDS: AMPICILLIN/SULBACTAM SOD 3,000 MG in 0.9 % SODIUM CHLORIDE 100 ML IV SCH ×2 (16:04→23:25)
--- NOTE | 2022-09-09 16:12 | CT Scan Report ---
CT tib/fib RT wo con CLINICAL HISTORY: r/o fx extension into distal tibia COMPARISON STUDY: Right tibia and fibula radiographs performed earlier today. TECHNIQUE: Axial images of the right tibia and fibula were obtained. Sagittal and coronal reconstruct ions were viewed. Automated exposure control was utilized for the study. A dose lowering technique w as utilized adhering to the principles of ALARA. FINDINGS: Alignment of the right knee is anatomic. There is a small right knee joint effusion. Note i s made of an acute oblique mildly displaced fracture of the right fibular neck. Fracture is displaced 4 mm. This is similar to prior radiographs. There is also an acute oblique displaced distal diaphyse al fracture of the right tibia. This fracture is displaced 1.4 cm. In addition, there is an acute non displaced fracture of the posterior distal right tibia/posterior malleolus. No ankle mortise widening is identified. There is no distal right fibular fracture. Talar dome is intact. Right lower leg soft tissue swelling is most pronounced at the level of the tibial fracture. There is no soft tissue gas. IMPRESSION: 1. Acute nondisplaced fracture of the posterior malleolus. No distal right fibular fracture. 2. Acute oblique displaced distal diaphyseal fracture of the right tibia. 3. Acute oblique mildly displaced right fibular neck fracture. ACT 112: Negative or not required by law. Electronically signed by: Edmund Steinberg M.D. 09/09/2022 4:11 PM
[2022-09-09] MEDS: METOPROLOL TARTRATE 25 MG TAB PO SCH (19:12)
[2022-09-10] MEDS: AMPICILLIN/SULBACTAM SOD 3,000 MG in 0.9 % SODIUM CHLORIDE 100 ML IV SCH ×3 (05:08→17:46)
[2022-09-10 06:38] LABS: Hematocrit (blood only) 33.9 % (42.0-52.0); Hemoglobin 12.2 g/dl (14.0-18.0); Mean Corpuscular Hemoglobin 33.2 pg (25.0-34.0); Mean Corpuscular Volume 92.4 fL (80.0-100.0); Mean Platelet Volume 11.4 fL (9.4-12.4); Platelet Count 175 K/uL (130-400); RDW Coefficient of Variation 13.1 % (11.5-14.5); RDW Standard Deviation 44.3 fL (36.4-46.3); Red Blood Count 3.67 M/uL (4.70-6.10); White Blood Count 8.77 K/ul (4.8-10.8)
[2022-09-10 06:54] LABS: Calcium 8.4 mg/dl (8.5-10.1); Creatinine Clr Calc Pharmacy 70.7 ml/min; Est GFR (Non-African American) 69.9 ml/min; Magnesium 1.5 mg/dl (1.7-2.4); Potassium 3.9 mmol/L (3.5-5.1)
[2022-09-10] MEDS: DOXYCYCLINE HYCLATE 100 MG in DEXTROSE 5% 100 ML IV SCH ×2 (08:10→19:33)
[2022-09-10] MEDS: SODIUM CHLORIDE 0.9% 1000ML 1,000 ML IV SCH ×2 (08:10→17:15)
[2022-09-10] MEDS: FOLIC ACID 1 MG in SYRINGE 9.8 ML IV SCH (08:11)
[2022-09-10] MEDS: THIAMINE HCL 100 MG in SYRINGE 9 ML IV SCH (08:11)
[2022-09-10] MEDS: NICOTINE 21 MG/24 HR TDSY TD SCH (08:11)
[2022-09-10] MEDS: ASPIRIN 81 MG ECTAB PO SCH (08:18)
[2022-09-10] MEDS: METOPROLOL TARTRATE 25 MG TAB PO SCH (08:18)
[2022-09-10] MEDS: chlordiazePOXIDE HCl 25 MG CAP PO SCH ×2 (08:18→17:16)
[2022-09-10] MEDS: GABAPENTIN 300 MG CAP PO SCH ×3 (08:18→19:24)
[2022-09-10] MEDS: PANTOprazole 40 MG TAB PO SCH (08:19)
[2022-09-10] MEDS: CYANOCOBALAMIN (B-12) 500 MCG TABLET PO SCH (08:19)
[2022-09-10] MEDS: ATORVASTATIN 40 MG TAB PO SCH (08:19)
[2022-09-10] MEDS: EZETIMIBE 10 MG TABLET PO SCH (08:19)
[2022-09-10] MEDS: DULoxetine HCL 20 MG CAP PO SCH (08:19)
[2022-09-10] MEDS: CHOLECALCIFEROL 1,000 UNITS 25 MCG TAB PO SCH (08:19)
[2022-09-10] MEDS: MULTIVITAMIN TAB PO SCH (08:19)
[2022-09-10] MEDS: MAGNESIUM SULFATE / D5W 1 GM/100 ML BAG IV SCH ×2 (10:40→17:14)
[2022-09-10] MEDS ORDERED: DEXAMETHASONE SOD INJ 4 MG/ML VIAL ONE (10:45)
[2022-09-10] MEDS ORDERED: PROPOFOL IV EMULSION 10 MG/ML 20 ML VIAL IV ONE (10:45)
[2022-09-10] MEDS ORDERED: MIDAZOLAM HCL 1 MG/ML 2ML VIAL ONE (10:45)
[2022-09-10] MEDS ORDERED: ONDANSETRON INJ 2 MG/ML 2 ML VIAL ONE (10:45)
[2022-09-10] MEDS ORDERED: fentaNYL citrate 100 MCG/2 ML VIAL ONE (10:45)
[2022-09-10] MEDS ORDERED: BUPIVACAINE/EPINEPHRINE 0.25% 1:200,000 30 ML VIAL ONE (12:11)
--- NOTE | 2022-09-10 12:18 | Anesthesiology Consultation ---
Date of Service September 10, 2022 Assessment & Plan (1) Encounter for pre-operative examination: Chart Review Chart Review: Acceptable Risk for Surgery and Patient NOT seen in Pre Admission Testing Patient presented acute intoxicated yesterday so surgery delayed a day. Is on EtOH withdrawal protocols. Consults Requested none History Surgery Operation Date: 09/10/22 13:00 Proposed Procedures p Right IM Distal Tibia - Evans Cage, Height/Weight Height: 5 ft 8 in Weight: 87.3 kg Allergies Allergy/AdvReac Type Severity Reaction Status Date / Time No Known Allergies Allergy Verified 09/09/22 00:48 Medications Home Medications Medication Instructions Recorded Confirmed Last Taken albuterol sulfate 90 mcg/actuation 2 puff inhalation DIRECTED PRN 09/09/22 09/09/22 Unknown aerosol inhaler Shortness Of Breath amlodipine 5 mg tablet 5 mg PO DAILY 09/09/22 09/09/22 09/08/22 aspirin 81 mg tablet,delayed 81 mg PO DAILY 09/09/22 09/09/22 09/08/22 release atorvastatin 80 mg tablet 80 mg PO DAILY 09/09/22 09/09/22 09/08/22 cholecalciferol (vitamin D3) 25 25 mcg PO DAILY 09/09/22 09/09/22 09/08/22 mcg (1,000 unit) capsule (Vitamin D3) cyanocobalamin (vitamin B-12) 1,000 mcg PO DAILY 09/09/22 09/09/22 09/08/22 1,000 mcg tablet (Vitamin B-12) doxepin 6 mg tablet 6 mg PO HS PRN Sleep 09/09/22 09/09/22 Unknown duloxetine 20 mg capsule,delayed 20 mg PO DAILY 09/09/22 09/09/22 09/08/22 release sprinkle ezetimibe 10 mg tablet (Zetia) 10 mg PO DAILY 09/09/22 09/09/22 09/08/22 gabapentin 300 mg capsule 300 mg PO TID 09/09/22 09/09/22 09/08/22 lisinopril 20 mg tablet 20 mg PO BID 09/09/22 09/09/22 09/08/22 metoprolol tartrate 50 mg tablet 50 mg PO BID 09/09/22 09/09/22 09/08/22 multivitamin 1 tab PO DAILY 09/09/22 09/09/22 09/08/22 omeprazole 20 mg tablet,delayed 20 mg PO DAILY 09/09/22 09/09/22 09/08/22 release potassium citrate 99 mg capsule 99 mg PO DAILY 09/09/22 09/09/22 09/08/22 Active Medications Generic Name Dose Route Start Last Admin Trade Name Grant PRN Reason Stop Dose Admin Aspirin 81 mg 09/09/22 09:00 09/10/22 08:18 Aspirin 81 Mg Ectab PO 10/09/22 08:59 81 mg DAILY MELL Administration Atorvastatin Calcium 80 mg 09/09/22 09:00 09/10/22 08:19 Atorvastatin 40 Mg Tab PO 10/09/22 08:59 80 mg DAILY MELL Administration Chlordiazepoxide HCl 25 mg 09/09/22 07:00 09/10/22 08:18 Chlordiazepoxide Hcl 25 Mg Cap PO 09/11/22 06:59 25 mg Q8H MELL Administration Taper Cyanocobalamin 1,000 mcg 09/09/22 09:00 09/10/22 08:19 Cyanocobalamin (B-12) 500 Mcg Tablet PO 10/09/22 08:59 1,000 mcg DAILY MELL Administration Duloxetine HCl 20 mg 09/09/22 09:00 09/10/22 08:19 Duloxetine Hcl 20 Mg Cap PO 10/09/22 08:59 20 mg DAILY MELL Administration Ezetimibe 10 mg 09/09/22 09:00 09/10/22 08:19 Ezetimibe 10 Mg Tablet PO 10/09/22 08:59 10 mg DAILY MELL Administration Gabapentin 300 mg 09/09/22 09:00 09/10/22 08:18 Gabapentin 300 Mg Cap PO 10/09/22 08:59 300 mg TID MELL Administration Sodium Chloride 1,000 mls @ 125 mls/hr 09/09/22 06:29 09/10/22 08:10 Nss 1000ml IV 10/09/22 06:28 125 mls/hr .Q8H MELL Administration Doxycycline Hyclate 100 mg/ 110 mls @ 50 mls/hr 09/09/22 07:00 09/10/22 10:41 Dextrose IV 09/16/22 06:28 Infused Q12H MELL Infusion Thiamine HCl 100 mg/ Syringe 10 mls @ 2 mls/min 09/09/22 09:00 09/10/22 08:11 IV 10/09/22 08:59 2 mls/min QAM MELL Administration Folic Acid 1 mg/ Syringe 10 mls @ 5 mls/min 09/09/22 09:00 09/10/22 08:11 IV 10/09/22 08:59 5 mls/min QAM MELL Administration Ampicillin Sodium/Sulbactam 108 mls @ 216 mls/hr 09/09/22 18:00 09/10/22 06:43 Sodium 3,000 mg/ Sodium IV 09/16/22 06:28 Infused Chloride Q6H MELL Infusion Protocol Magnesium Sulfate/Dextrose 1 gm in 100 mls @ 50 mls/hr 09/10/22 09:15 09/10/22 10:40 Magnesium Sulfate / D5w IV 09/10/22 13:14 50 mls/hr Q2H MELL Administration Metoprolol Tartrate 12.5 mg 09/09/22 21:00 09/10/22 08:18 Metoprolol Tartrate 25 Mg Tab PO 10/09/22 20:59 12.5 mg BID MELL Administration Miscellaneous 1 each 09/09/22 08:00 09/10/22 08:19 Doxepin-Order Awaiting Action N/A 10/09/22 07:59 Not Given QS MELL Miscellaneous 1 each 09/09/22 08:59 09/10/22 08:12 Remove Nicoderm Patch N/A 10/09/22 08:58 1 each DAILY@0859 MELL Administration Multivitamins 1 tab 09/09/22 09:00 09/10/22 08:19 Multivitamin Tab PO 10/09/22 08:59 1 tab QAM MELL Administration Nicotine 21 mg 09/09/22 09:00 09/10/22 08:11 Nicotine 21 Mg/24 Hr Tdsy TD 10/09/22 08:59 21 mg QAM MELL Administration Pantoprazole Sodium 40 mg 09/09/22 09:00 09/10/22 08:19 Pantoprazole 40 Mg Tab PO 10/09/22 08:59 40 mg DAILY MELL Administration Vitamin D 1,000 units 09/09/22 09:00 09/10/22 08:19 Cholecalciferol 1,000 Units 25 Mcg Tab PO 10/09/22 08:59 1,000 units DAILY MELL Administration Past Medical History Medical History (Updated 09/10/22 @ 12:18 by Thuan Tineo MD) Acute hypotension Acute renal insufficiency Alcohol abuse CVA (cerebral vascular accident) GERD (gastroesophageal reflux disease) Hypertension Peripheral neuropathy Tobacco abuse Fall Insetting of alcohol intoxication Right displaced distal tibia fracture/proximal fibular fracture due to fall Chronic Multiple healing/healed bilateral rib fractures 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 no anesthesia problems Past Anesthesia History No Hx of Anesthesia Complications and No Family Hx of Anesthesia Complications History of PONV No Hx of PONV and No Hx of Motion Sickness Social History Smoking Status: Current every day smoker tobacco type: cigarettes Smoking cigarettes per day: 1/2 pack day Hx Alcohol Use: Yes Alcohol type: beer and hard liquor alcohol intake frequency: 3 or more drinks per day Alcohol Intake Frequency Comment: 4 beers a day and occasional 1/5 of liqour Hx Substance Use: Yes substance use type: marijuana Physical Exam Vital Signs Last Vital Signs Temp 36.6 C 09/10/22 12:22 Pulse 86 09/10/22 12:22 Resp 18 09/10/22 12:22 BP 139/89 09/10/22 12:22 Pulse Ox 92 09/10/22 12:22 O2 Del Method Room Air 09/10/22 12:22 O2 Flow Rate 2 09/09/22 11:57 Testing Laboratory Results 09/10/22 05:43 09/10/22 05:43 PT 11.0 Seconds (9.0-12.0) 09/09/22 00:16 INR 1.0 (0.9-1.1) 09/09/22 00:16 09/09/22 02:13 Aerobic Blood Culture - Preliminary Blood No growth in Aerobic bottle after 24 hours. 09/09/22 02:13 Aerobic Blood Culture - Final Blood Anaerobic Blood Culture - Preliminary No growth in Anaerobic bottle after 24 hours. Electrocardiogram Date: 09/09/22 DICTATED BY:Bishop Krishnamurthy MD Test Reason : Blood Pressure : / mmHG Vent. Rate : 069 BPM Atrial Rate : 069 BPM P-R Int : 166 ms QRS Dur : 090 ms QT Int : 416 ms P-R-T Axes : 057 -05 019 degrees QTc Int : 445 ms Normal sinus rhythm Normal ECG When compared with ECG of 28-MAR-2003 21:03, No significant change was found Confirmed by Bishop Krishnamurthy ([id number]) on 09/09/2022 10:17:00 AM Chest X-Ray Date: 08/20/22 XR chest 1V portable HISTORY: Fall. weakness COMPARISON: None. FINDINGS: No pneumothorax. No pleural effusions. The cardiac silhouette is borderline enlarged. There is emphysema. Bibasilar interstitial thickening most pronounced on the left. The upper lung zones are clear. IMPRESSION: 1. Emphysema. 2. Bibasilar interstitial thickening most pronounced on the left. This could be due to vascular crowding from the emphysema or a low-grade pneumonitis. Other Testing CT chest: CT chest diagnostic wo con, CT abd pelvis wo con CT DOSE: 673.69 mGy.cm HISTORY: Fall. TRAUMA TECHNIQUE: Multiaxial CT images of the chest , abdomen, and pelvis were performed without contrast. A dose lowering technique was utilized adhering to the principles of ALARA. COMPARISON: Abdomen and pelvis CT 10/29/2005. FINDINGS: Chest CT: No acute fractures identified within the chest. There are multiple healing/healed bilateral rib fractures. Moderate anterior wedging at T12 is technically age indeterminate but likely chronic. No pneumothorax. Emphysema. Diffuse bronchial wall thickening with mucoid impaction of the left lower lobe bronchi. There is also focal area of mucoid material within the right mainstem bronchus. Consolidation within the majority of the left lower lobe. There are patchy airspace opacities within the right lower lobe posteriorly. This favors a pneumonia and could be due to aspiration. A 5 mm subpleural nodule on the right minor fissure on image 132. A 6 mm nodule within the right middle lobe on image 152. No mediastinal or hilar lymphadenopathy. Normal esophagus. Calcified plaque within the normal caliber thoracic aorta. Severe coronary artery calcifications are noted. Abdomen/pelvis CT: No pneumoperitoneum. No pneumatosis. No acute fractures ident ified. Hepatic steatosis. The unenhanced gallbladder, pancreas, spleen, and adrenal glands unremarkable. Bilateral renal vascular calcifications are noted. No hydronephrosis. No retroperitoneal lymphadenopathy or hematoma. There is a mildly ectatic and calcified abdominal aorta. Mild bladder wall thickening may be due to underdistention or chronic outlet obstruction from the mildly enlarged prostate gland. No pelvic free fluid. Suboptimal evaluation for bowel pathology due to the lack of intravenous and oral contrast. However, there is no definite bowel wall thickening or obstruction. Normal appendix. IMPRESSION: 1. Multiple healing/healed bilateral rib fractures. No pneumothorax. 2. Moderate anterior wedging at T12 is technically age indeterminate but likely chronic. 3. Emphysema. 4. Left greater than right lower lobe airspace opacities likely representing a pneumonia. This favors an aspiration pneumonia given the bronchial mucoid impaction. 5. Emphysema. 6. No acute traumatic process within the chest, abdomen, or pelvis. 7. A 6 mm nodule within the right middle lobe. Follow-up recommended below. 8. Additional findings as described above.
[2022-09-10] MEDS ORDERED: fentaNYL citrate 100 MCG/2 ML VIAL IV PRN (12:23)
[2022-09-10] MEDS ORDERED: ePHEDrine sulfate 50 MG/ML AMP IV PRN (12:23)
[2022-09-10] MEDS ORDERED: ATROPINE SULFATE 0.1 MG/ML 10ML SYR IV PRN (12:23)
[2022-09-10] MEDS ORDERED: PROMETHAZINE HCL 6.25 MG in SODIUM CHLORIDE 0.9% 50 ML IV PRN (12:23)
[2022-09-10] MEDS ORDERED: HYDROmorphone INJ 1 MG/ML SYRINGE IV PRN (12:23)
[2022-09-10] MEDS ORDERED: ONDANSETRON INJ 2 MG/ML 2 ML VIAL IV PRN ×2 (12:23→17:11)
--- NOTE | 2022-09-10 13:18 | History & Physical Bridge Note ---
Date of Service September 10, 2022 History & Physical Bridge Note I have examined the patient, reviewed the History & Physical and in the interval since the performance of the History & Physical I have noted the following changes of clinical significance: no changes noted. I met with the patient we had a lengthy discussion regarding risk benefits potential complications of right tibia intramedullary nail with possible open reduction. These include but are not limited to infection, neurovascular injury, DVT, nonunion, malunion, hardware failure and need for future surgery. After reviewing these he has elected proceed with surgical intervention and written consent was obtained.
[2022-09-10] MEDS ORDERED: ceFAZolin 330 MG/ML 1 GM VIAL ONE (13:54)
--- NOTE | 2022-09-10 15:29 | Fluoroscopy Report ---
INTRAOPERATIVE RADIOGRAPHS CLINICAL HISTORY: Internal fixation of the right tibia. Fluoro time: 46 seconds. Exposure: 1.86 mGy FINDINGS: 5 spot fluoroscopic views of the right tibia and fibula are presented. There is a mildly di splaced spiral fracture of the fibular neck. An intramedullary nail has been placed transfixing a fra cture of the distal tibia. Near anatomic alignment is restored. There are 2 cortical lag screws trans fixing the proximal and distal ends of the intramedullary nail. Overlying soft tissue edema is noted. IMPRESSION: Intraoperative images from intramedullary nail fixation of the right tibia as above. Electronically signed by: Tanvir Christensen M.D. 09/10/2022 3:28 PM
--- NOTE | 2022-09-10 15:49 | Post Operative Brief Note ---
Immediate Post Op Note v1 Date of Surgery September 10, 2022 Pre & Post Diagnosis Operation Date: 09/10/22 13:00 Pre-Op Diagnosis: FALL, ANKLE PAIN Post-Op Diagnosis: FALL, ANKLE PAIN I identified the patient and participated in the time-out.: Yes Procedure Operation Date: 09/10/22 13:00 Actual Procedures p Right IM Distal Tibia(Right) - Evans Cage DO Surgeon Evans Cage DO [employer] John Paul Miller PA-C Estimated Blood Loss 50 Findings Consistent with Post-Op Diagnosis see dictation Complications None
--- NOTE | 2022-09-10 16:06 | Anesthesiology Progress Note ---
Date of Service September 10, 2022 Anesthesia Post Procedure Vital Signs Vital Signs: Temp Pulse Pulse Resp BP Pulse Ox O2 Del Method 09/10/22 15:50 82 21 150/85 H 98 Oxymask 09/10/22 15:40 80 17 141/90 H 98 Oxymask 09/10/22 15:30 75 15 125/86 97 Oxymask 09/10/22 15:24 36.1 C L 79 16 137/93 97 Oxymask 09/10/22 12:22 36.6 C 86 18 139/89 92 Room Air 09/10/22 12:19 36.8 C 91 H 20 149/96 H 95 Room Air 09/10/22 08:00 Room Air 09/10/22 08:00 90 09/10/22 08:00 36.7 C 89 18 152/96 H 94 Room Air 09/10/22 05:35 36.8 C 92 H 17 157/83 H 92 Room Air 09/09/22 23:26 37.0 C 88 20 164/96 H 93 Room Air 09/09/22 20:58 Room Air 09/09/22 19:39 36.5 C 99 H 18 132/80 92 Room Air 09/09/22 17:09 36.8 C 105 H 20 126/77 95 Room Air O2 Flow Rate 09/10/22 15:50 3 09/10/22 15:40 6 09/10/22 15:30 6 09/10/22 15:24 6 09/10/22 12:22 09/10/22 12:19 09/10/22 08:00 09/10/22 08:00 09/10/22 08:00 09/10/22 05:35 09/09/22 23:26 09/09/22 20:58 09/09/22 19:39 09/09/22 17:09 Pain Intensity Right Ankle: Pain Intensity: 3 Transfer of Care Handoff Completed per policy Notes Mental Status: alert / awake / arousable Patient Amnestic to Procedure: Yes Nausea / Vomiting: adequately controlled Pain: adequately controlled Airway Patency, RR, SpO2: stable & adequate BP & HR: stable & adequate Hydration State: stable & adequate Anesthetic Complications: no major complications apparent
--- NOTE | 2022-09-10 16:23 | Hospitalist Progress Note ---
Date of Service September 10, 2022 Assessment & Plan (1) Tibia/fibula fracture: Plan: Patient is a 67 yr male, status post fall and right tibia-fibula fracture. 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 --Lower Extremity CT pending --CT ABD:Multiple healing/healed bilateral rib fractures. No pneumothorax. Moderate anterior wedging at T12 is technically age indeterminate but likely chronic. Emphysema. Left greater than right lower lobe airspace opacities likely representing a pneumonia. This favors an aspiration pneumonia given the bronchial mucoid impaction. Emphysema. No acute traumatic process within the chest, abdomen, or pelvis. A 6 mm nodule within the right middle lobe. Follow-up recommended below. --CT Head:No acute intracranial abnormality. Atrophy and microvascular ischemic changes. --Neck CT:No acute cervical spine fracture or subluxation. -- Chest CT:Multiple healing/healed bilateral rib fractures. No pneumothorax. Moderate anterior wedging at T12 is technically age indeterminate but likely chronic. Emphysema. Left greater than right lower lobe airspace opacities likely representing a pneumonia. This favors an aspiration pneumonia given the bronchial mucoid impaction. Emphysema. No acute traumatic process within the chest, abdomen, or pelvis. A 6 mm nodule within the right middle lobe. Follow-up recommended below. --S/P Right IM Distal Tibia on 09/10/22 -- Fall precautions --Appreciate Orthopedics Input -- PT OT when appropriate Acute kidney injury Unknown baseline kidney function Cr:3.5>>2.45>1.09 Avoid nephrotoxic agents Hold lisinopril Bladder scan as needed Received IV fluids Possible sepsis Presented with hypotension, lactic acidosis Possible pneumonia Hypoxia --CT chest as above Blood cultures :No growth to date Aspiration precautions Empirically on Unasyn, doxycycline Wean off of supplemental oxygen to keep saturations greater than 88% We will transition to p.o. antibiotics as able COPD On Albuterol PRN Continues to smoke Alcohol abuse Continue alcohol withdrawal protocol with Librium and Ativan p.r.n. Continue IV thiamine and folic acid Monitor for alcohol withdrawal symptoms. H/O CVA with no residual weakness Continue aspirin, statin. 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 Hypertension. BP low on presentation BP better today Resume Amlodipine tomorrow Hold Lisinopril for now Continue metoprolol 50 mg BID Monitor BP GERD continue PPI DVT Px: SCDs for now Code Status Full Code Admission and Anticipated Discharge Date Admission Date: September 09, 2022 Subjective Patient is seen and examined at bedside prior to surgery today Denies any pain of right lower extremity No new complaints Denies any chest pain, dyspnea, cough, dizziness, nausea, abdominal pain Review of Systems Review of Systems: All systems reviewed & are unremarkable except as noted in Subjective Physical Exam Physical Exam: Physical Exam: Vitals signs as noted above General Appearance:Moderately built and nourished, no apparent distress Head: normocephalic, Atraumatic Eyes: normal inspection, EOMI Neck: supple, Trachea midline Respiratory/Chest:Decreased breath sounds, scattered wheezes, No accessory muscle use Cardiovascular: S1, S2, No murmur Abdomen/GI:Soft, Non tender, Bowel sounds present Extremities/Musculoskeletal:normal inspection, no edema, RLE in dressing Neurologic/Psych:AAOX3, grossly no focal neurological deficits Skin: normal color, warm Results & Data Results & Data ([facility]) Vital Signs (Past 12 Hours) Vital Signs Temp Pulse Pulse Resp BP Pulse Ox O2 Del Method 09/10/22 15:50 82 21 150/85 H 98 Oxymask 09/10/22 15:40 80 17 141/90 H 98 Oxymask 09/10/22 15:30 75 15 125/86 97 Oxymask 09/10/22 15:24 36.1 C L 79 16 137/93 97 Oxymask 09/10/22 12:22 36.6 C 86 18 139/89 92 Room Air 09/10/22 12:19 36.8 C 91 H 20 149/96 H 95 Room Air 09/10/22 08:00 Room Air 09/10/22 08:00 90 09/10/22 08:00 36.7 C 89 18 152/96 H 94 Room Air 09/10/22 05:35 36.8 C 92 H 17 157/83 H 92 Room Air O2 Flow Rate 09/10/22 15:50 3 09/10/22 15:40 6 02/23/23 15:30 6 09/10/22 15:24 6 09/10/22 12:22 09/10/22 12:19 09/10/22 08:00 09/10/22 08:00 09/10/22 08:00 09/10/22 05:35 Laboratory Results Short CBC 09/10/22 Range/Units 05:43 WBC 8.77 (4.8-10.8) K/ul Hgb 12.2 L (14.0-18.0) g/dl Hct 33.9 L (42.0-52.0) % Plt Count 175 (130-400) K/uL BMP 09/10/22 05:43 Sodium 137 Potassium 3.9 Chloride 105 Carbon Dioxide 25 BUN 12 Creatinine 1.09 D Glucose 110 H Calcium 8.4 L
[2022-09-10] MEDS ORDERED: MAGNESIUM HYDROXIDE SUSP 30 ML UDC PO PRN (17:11)
[2022-09-10] MEDS ORDERED: oxyCODONE HCL IR 5 MG TAB (IMMEDIATE RELEASE) PO PRN (17:11)
[2022-09-10] MEDS ORDERED: NALOXONE HCL 0.4 MG/1 ML VIAL/CARP IV PRN (17:11)
[2022-09-10] MEDS ORDERED: bisacodyL 10 MG SUPP PR PRN (17:11)
[2022-09-10] MEDS: METOPROLOL TARTRATE 50 MG TAB PO SCH (19:23)
[2022-09-10] MEDS: DOCUSATE SODIUM 100 MG CAP PO SCH (19:25)
[2022-09-10] MEDS: ENOXAPARIN INJ 30 MG/0.3 ML SYR SQ SCH (19:25)
[2022-09-11] MEDS: AMPICILLIN/SULBACTAM SOD 3,000 MG in 0.9 % SODIUM CHLORIDE 100 ML IV SCH ×2 (00:19→06:08)
[2022-09-11] MEDS: chlordiazePOXIDE HCl 25 MG CAP PO SCH (00:19)
[2022-09-11] MEDS: SODIUM CHLORIDE 0.9% 1000ML 1,000 ML IV SCH (00:19)
[2022-09-11] MEDS: DOXYCYCLINE HYCLATE 100 MG in DEXTROSE 5% 100 ML IV SCH (06:08)
[2022-09-11 06:41] LABS: Hematocrit (blood only) 31.1 % (42.0-52.0); Hemoglobin 11.1 g/dl (14.0-18.0); Mean Corpuscular Hemoglobin 33.2 pg (25.0-34.0); Mean Corpuscular Hgb Conc 35.7 g/dL (32.0-36.0); Mean Corpuscular Volume 93.1 fL (80.0-100.0); Mean Platelet Volume 11.4 fL (9.4-12.4); Platelet Count 184 K/uL (130-400); RDW Coefficient of Variation 12.9 % (11.5-14.5); RDW Standard Deviation 43.8 fL (36.4-46.3); Red Blood Count 3.34 M/uL (4.70-6.10); White Blood Count 11.85 K/ul (4.8-10.8)
[2022-09-11 06:46] LABS: BUN Creatinine Ratio 13.9 (10-20); Calcium 8.3 mg/dl (8.5-10.1); Creatinine Clr Calc Pharmacy 71.3 ml/min; Est GFR (African American) 81.9 ml/min; Est GFR (Non-African American) 70.6 ml/min; Magnesium 1.8 mg/dl (1.7-2.4); Potassium 4.5 mmol/L (3.5-5.1)
[2022-09-11] MEDS: NICOTINE 21 MG/24 HR TDSY TD SCH (07:49)
[2022-09-11] MEDS: CHOLECALCIFEROL 1,000 UNITS 25 MCG TAB PO SCH (07:49)
[2022-09-11] MEDS: EZETIMIBE 10 MG TABLET PO SCH (07:49)
[2022-09-11] MEDS: MULTIVITAMIN TAB PO SCH (07:49)
[2022-09-11] MEDS: FOLIC ACID 1 MG in SYRINGE 9.8 ML IV SCH (07:49)
[2022-09-11] MEDS: ATORVASTATIN 40 MG TAB PO SCH (07:49)
[2022-09-11] MEDS: ASPIRIN 81 MG ECTAB PO SCH (07:49)
[2022-09-11] MEDS: PANTOprazole 40 MG TAB PO SCH (07:50)
[2022-09-11] MEDS: DULoxetine HCL 20 MG CAP PO SCH (07:50)
[2022-09-11] MEDS: GABAPENTIN 300 MG CAP PO SCH ×3 (07:50→19:41)
[2022-09-11] MEDS: DOCUSATE SODIUM 100 MG CAP PO SCH ×2 (07:50→19:40)
[2022-09-11] MEDS: CYANOCOBALAMIN (B-12) 500 MCG TABLET PO SCH (07:52)
[2022-09-11] MEDS: METOPROLOL TARTRATE 50 MG TAB PO SCH ×2 (07:52→19:42)
[2022-09-11] MEDS: THIAMINE HCL 100 MG in SYRINGE 9 ML IV SCH (07:53)
[2022-09-11] MEDS ORDERED: amLODIPine BESYLATE 5 MG TAB PO SCH (09:00)
--- NOTE | 2022-09-11 09:07 | Orthopedic Progress Note ---
Date of Service September 11, 2022 Assessment & Plan (1) Tibia/fibula fracture: Plan: Postop day 1 status post IM tibial nailing PT/OT protocols. Nonweightbearing right lower extremity. DVT prophylaxis-begin Lovenox this evening daily, SCDs, ANGELES baugh Pain management as written. DC planning-possible need for fpc facility/rehab versus home health Admission and Anticipated Discharge Date Admission Date: September 09, 2022 Subjective POD 1 Patient is lying in bed awake and alert this morning. States he has some mild discomfort in the right knee but otherwise feels well. Pain is controlled. Physical Exam Physical Exam: Dressings/splint are clean, dry, and intact. Toes are mobile. He has a dense neuropathy which has not changed obviously. He is moving his toes well. Cap refill is less than 2 seconds. Results & Data ([facility]) Vital Signs (Past 12 Hours) Vital Signs Temp Pulse Pulse Pulse Resp BP Pulse Ox 09/11/22 08:07 35.8 C L 80 18 143/93 H 94 09/11/22 08:03 09/11/22 07:00 36.7 C 82 20 124/68 95 09/11/22 03:41 36.5 C 70 16 143/90 H 92 09/11/22 00:00 84 09/10/22 23:23 36.7 C 82 20 132/82 92 09/10/22 21:11 O2 Del Method 09/11/22 08:07 Room Air 09/11/22 08:03 Room Air 09/11/22 07:00 Room Air 09/11/22 03:41 Room Air 09/11/22 00:00 09/10/22 23:23 Room Air 09/10/22 21:11 Room Air Laboratory Results Laboratory Results WBC 11.85 K/ul (4.8-10.8) H 09/11/22 05:34 RBC 3.34 M/uL (4.70-6.10) L 09/11/22 05:34 Hgb 11.1 g/dl (14.0-18.0) L 09/11/22 05:34 Hct 31.1 % (42.0-52.0) L 09/11/22 05:34 MCV 93.1 fL (80.0-100.0) 09/11/22 05:34 MCH 33.2 pg (25.0-34.0) 09/11/22 05:34 MCHC 35.7 g/dL (32.0-36.0) 09/11/22 05:34 RDW Std Deviation 43.8 fL (36.4-46.3) 09/11/22 05:34 RDW Coeff of Shayan 12.9 % (11.5-14.5) 09/11/22 05:34 Plt Count 184 K/uL (130-400) 09/11/22 05:34 MPV 11.4 fL (9.4-12.4) 09/11/22 05:34 Immature Gran % (Auto) 0.2 % 09/09/22 07:08 Neut % (Auto) 45.3 % 09/09/22 07:08 Lymph % (Auto) 38.6 % 09/09/22 07:08 [place] % (Auto) 13.1 % 09/09/22 07:08 Eos % (Auto) 2.2 % 09/09/22 07:08 Baso % (Auto) 0.6 % 09/09/22 07:08 Neut # (Auto) 4.12 K/uL (1.40-6.50) 09/09/22 07:08 Lymph # (Auto) 3.51 K/uL (1.2-3.4) H 09/09/22 07:08 [place] # (Auto) 1.19 K/uL (0.11-0.59) H 09/09/22 07:08 Eos # (Auto) 0.20 K/uL (0-0.50) 09/09/22 07:08 Baso # (Auto) 0.05 K/uL (0-0.2) 09/09/22 07:08 Immature Gran # (Auto) 0.02 K/uL (0.01-0.20) 09/09/22 07:08 RBC Morphology Unremarkable 09/09/22 00:16 PT 11.0 Seconds (9.0-12.0) 09/09/22 00:16 INR 1.0 (0.9-1.1) 09/09/22 00:16 Sodium 134 mmol/L (136-145) L 09/11/22 05:34 Potassium 4.5 mmol/L (3.5-5.1) 09/11/22 05:34 Chloride 105 mmol/L (98-107) 09/11/22 05:34 Carbon Dioxide 24 mmol/L (21-32) 09/11/22 05:34 Anion Gap 5 (3-11) 09/11/22 05:34 BUN 15 mg/dl (6-23) 09/11/22 05:34 Creatinine 1.08 mg/dl (0.6-1.4) 09/11/22 05:34 Est Cr Clr Drug Dosing 71.3 ml/min 09/11/22 05:34 Est GFR ( Amer) 81.9 ml/min 09/11/22 05:34 Est GFR (Non-Af Amer) 70.6 ml/min 09/11/22 05:34 BUN/Creatinine Ratio 13.9 (10-20) 09/11/22 05:34 Glucose 135 mg/dl (70-99(Fasting)) H 09/11/22 05:34 Lactate 2.0 mmol/L (0.4-2.0) 09/09/22 04:35 Calcium 8.3 mg/dl (8.5-10.1) L 09/11/22 05:34 Magnesium 1.8 mg/dl (1.7-2.4) 09/11/22 05:34 Total Bilirubin 0.9 mg/dl (0.2-1.0) 09/09/22 00:16 AST 21 U/L (13-39) 09/09/22 00:16 ALT 20 U/L (7-52) 09/09/22 00:16 Alkaline Phosphatase 60 U/L (34-104) 09/09/22 00:16 Total Protein 7.5 gm/dl (6.0-8.3) 09/09/22 00:16 Albumin 4.0 gm/dl (3.4-5.0) 09/09/22 00:16 Globulin 3.5 gm/dl (2.5-4.0) 09/09/22 00:16 Albumin/Globulin Ratio 1.1 (0.9-2) 09/09/22 00:16 Vitamin B12 924 pg/ml (180-914) H 09/09/22 07:08 Folate 11.95 ng/ml (>5.38) 09/09/22 07:08 Procalcitonin < 0.05 ng/ml (0-0.5) 09/10/22 05:43 Nasal Screen MRSA (PCR) Negative (Negative) 09/09/22 06:29 Ethyl Alcohol mg/dL 220.8 mg/dl (<10.0) H 09/09/22 00:16 SARS-CoV-2, RNA, NAAT NEGATIVE (NEGATIVE) 09/09/22 00:[address] 09/09/22 14:03 CT tib/fib RT wo con CLINICAL HISTORY: r/o fx extension into distal tibia COMPARISON STUDY: Right tibia and fibula radiographs performed earlier today. TECHNIQUE: Axial images of the right tibia and fibula were obtained. Sagittal and coronal reconstructions were viewed. Automated exposure control was utilized for the study. A dose lowering technique was utilized adhering to the principles of ALARA. FINDINGS: Alignment of the right knee is anatomic. There is a small right knee joint effusion. Note is made of an acute oblique mildly displaced fracture of the right fibular neck. Fracture is displaced 4 mm. This is similar to prior radiographs. There is also an acute oblique displaced distal diaphyseal fracture of the right tibia. This fracture is displaced 1.4 cm. In addition, there is an acute nondisplaced fracture of the posterior distal right tibia/posterior malleolus. No ankle mortise widening is identified. There is no distal right fibular fracture. Talar dome is intact. Right lower leg soft tissue swelling is most pronounced at the level of the tibial fracture. There is no soft tissue gas. IMPRESSION: 1. Acute nondisplaced fracture of the posterior malleolus. No distal right fibular fracture. 2. Acute oblique displaced distal diaphyseal fracture of the right tibia. 3. Acute oblique mildly displaced right fibular neck fracture. ACT 112: Negative or not required by law. Electronically signed by: Edmund Steinberg M.D. 09/09/2022 4:11 PM Tibia/Fibula X-Ray 09/10/22 13:00 INTRAOPERATIVE RADIOGRAPHS CLINICAL HISTORY: Internal fixation of the right tibia. Fluoro time: 46 seconds. Exposure: 1.86 mGy FINDINGS: 5 spot fluoroscopic views of the right tibia and fibula are presented. There is a mildly displaced spiral fracture of the fibular neck. An intramedullary nail has been placed transfixing a fracture of the distal tibia. Near anatomic alignment is restored. There are 2 cortical lag screws transfixing the proximal and distal ends of the intramedullary nail. Overlying soft tissue edema is noted. IMPRESSION: Intraoperative images from intramedullary nail fixation of the right tibia as above. Electronically signed by: Tanvir Christensen M.D. 09/10/2022 3:28 PM
[2022-09-11] MEDS: AMOXICILLIN/CLAVULANATE 875 MG TAB PO SCH (16:36)
--- NOTE | 2022-09-11 16:41 | Operative Report ---
Post Operative Report Pre & Post Diagnosis Operation Date: 09/10/22 13:00 Pre-Op Diagnosis: FALL, ANKLE PAIN Post-Op Diagnosis: FALL, ANKLE PAIN I identified the patient and participated in the time-out.: Yes Procedure Operation Date: 09/10/22 13:00 Actual Procedures p Right IM Distal Tibia(Right) - Evans Cage DO Surgeon Evans Cage DO Learning And Development Director John Paul Miller PA-C Estimated Blood Loss 50 Findings Consistent with Post-Op Diagnosis see dication Specimens none Complications none Indications 67-year-old male presenting to [facility] emergency department for a fall while intoxicated. As a result of his fall he sustained a distal third radial shaft on his right lower extremity. He was admitted to medical service and orthopedics was consulted for operative management. I met with the patient preoperatively and we had a lengthy discussion regarding risk benefits and potential complications of a right tibia intramedullary nail. This include but are not limited to: Infection, neurovascular injury, DVT, nonunion, malunion, hardware failure and need for future surgery. After reviewing these he elected proceed with surgical intervention and written consent was obtained. Description of Procedure Implants: Synthes Tibial Nail Advanced 11mm x 345mm, 5.0 x 38mm screw (2), 5.0 x 30mm screw, 5.0 x 40mm screw, 10mm End Cap Patient was appropriately identified in preoperative holding area and the right lower extremity was marked. He was then seen back to the sleep he received general anesthesia. He received antibiotic per protocol. He was then turned over to the medial OR table with radiolucent extension. Nonsterile thigh tourniquet was then placed. Bone foam was then positioned under the right lower extremity. Was then prepped and draped in standard fashion a timeout was then performed. Centimeter incision superior aspect of the skin subcutaneous tissue and split the quadriceps tendon. Trocar was then used and the patellofemoral joint and advanced down to the tibial articular margin. Using the assistance of fluoroscopy a 3 guidewire was inserted just medial to the lateral tibial spine and just off the articular margin. It was then advanced into the medullary canal. This was confirmed on AP and lateral fluoroscopy. Canal opening reamer was then used to open the proximal aspect of the tibia. A ball-tipped guidewire was then inserted. Traction was held on the distal segment in addition to some rotation. The guidewire was then advanced into distal segment. Length of the implant was measured and a 345 mm lateral selected. The tibial canal was then sequentially reamed up to a size 12.5 mm reamer to accommodate an 11 mm x 345 mm nail. Tibial nail was then inserted over the guidewire and advanced distally. Provided reduction of the fracture and good position of the implant. Guidewire was then removed. Attention was then turned to the 2 distal medial to lateral interlocks. Using perfect southern ute fluoroscopy incisions were then made for the locking screws and then they were drilled bicortically. A 30 mm distal screw and a 30 mm more proximal screw were then inserted. This provided excellent cortical purchase. Attention was then turned to the proximal locking screws. The proximal outrigger was then attached to the implant. Using a drill sleeve incisions were made for the more distal proximal static interlock as well as the dynamic. Drill was then used to drill bicortically and a 38 mm and 40 mm locking screws were then placed. Radiographs demonstrated excellent reduction of the fracture and position of the implant. He was then selected that a 10 mm end cap would be used on the nail. The nail insertion device was then removed. A 10 mm end cap was then inserted over the proximal aspect of the nail. Final radiographs were then obtained. Wounds were then copious irrigated using normal saline solution. Quadriceps tendon was then closed in [id number] fashion using 0 Vicryl suture followed by 2-0 Vicryl for subcutaneous tissues and samantha for the skin incisions for locking screws were then closed with 2-0 Vicryl followed by samantha with skin. Sterile dressing Xeroform 4 x 4 gauze and OpSite were then applied. The patient was then placed in well-padded long-leg splint. He tolerated the procedure well was taken to recovery room in hemodynamically stable condition. John Paul Caballero PA-C was present for the routine. He assisted in patient positioning, draping, soft tissue exposure, fracture reduction, soft tissue closure and splinting. I attest to the content of the Intraoperative Record and any orders documented therein. Any exceptions are noted below.
--- NOTE | 2022-09-11 17:00 | Hospitalist Progress Note ---
Date of Service September 11, 2022 Assessment & Plan (1) Tibia/fibula fracture: Plan: Patient is a 67 yr male, status post fall and right tibia-fibula fracture. 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 --Lower Extremity CT: Acute nondisplaced fracture of the posterior malleolus. No distal right fibular fracture. Acute oblique displaced distal diaphyseal fracture of the right tibia. Acute oblique mildly displaced right fibular neck fracture. --CT ABD:Multiple healing/healed bilateral rib fractures. No pneumothorax. Moderate anterior wedging at T12 is technically age indeterminate but likely chronic. Emphysema. Left greater than right lower lobe airspace opacities likely representing a pneumonia. This favors an aspiration pneumonia given the bronchial mucoid impaction. Emphysema. No acute traumatic process within the chest, abdomen, or pelvis. A 6 mm nodule within the right middle lobe. Follow-up recommended below. --CT Head:No acute intracranial abnormality. Atrophy and microvascular ischemic changes. --Neck CT:No acute cervical spine fracture or subluxation. -- Chest CT:Multiple healing/healed bilateral rib fractures. No pneumothorax. Moderate anterior wedging at T12 is technically age indeterminate but likely chronic. Emphysema. Left greater than right lower lobe airspace opacities likely representing a pneumonia. This favors an aspiration pneumonia given the bronchial mucoid impaction. Emphysema. No acute traumatic process within the chest, abdomen, or pelvis. A 6 mm nodule within the right middle lobe. Follow-up recommended below. --S/P Right IM Distal Tibia on 09/10/22 by -- Fall precautions --Appreciate Orthopedics Input -- PT OT -- Nonweightbearing right lower extremity --On Lovenox SQ for DVT prophylaxis Mild leukocytosis likely reactive Acute kidney injury Unknown baseline kidney function Cr:3.5>>2.45>1.08 Avoid nephrotoxic agents Hold lisinopril Bladder scan as needed Received IV fluids Possible sepsis Presented with hypotension, lactic acidosis Possible pneumonia Hypoxia --CT chest as above Blood cultures :No growth to date Aspiration precautions Empirically on Unasyn, doxycycline Wean off of supplemental oxygen to keep saturations greater than 88% Will transition to p.o. antibiotics tomorrow COPD On Albuterol PRN Continues to smoke Alcohol abuse Continue alcohol withdrawal protocol with Librium and Ativan p.r.n. Continue IV thiamine and folic acid Monitor for alcohol withdrawal symptoms. H/O CVA with no residual weakness Continue aspirin, statin. 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 Hypertension. BP low on presentation BP better today Resume Amlodipine tomorrow Hold Lisinopril for now Continue metoprolol 50 mg BID Monitor BP GERD continue PPI DVT Px: SCDs Lovenox SQ Code Status Full Code Admission and Anticipated Discharge Date Admission Date: September 09, 2022 Subjective Patient is seen and examined at bedside prior to surgery today Right lower extremity pain at surgical site is controlled No other complaints Denies any chest pain, dyspnea, cough, dizziness, nausea, abdominal pain Review of Systems Review of Systems: All systems reviewed & are unremarkable except as noted in Subjective Physical Exam Physical Exam: Physical Exam: Vitals signs as noted above General Appearance:Moderately built and nourished, no apparent distress Head: normocephalic, Atraumatic Eyes: normal inspection, EOMI Neck: supple, Trachea midline Respiratory/Chest:Decreased breath sounds, scattered wheezes, No accessory muscle use Cardiovascular: S1, S2, No murmur Abdomen/GI:Soft, Non tender, Bowel sounds present Extremities/Musculoskeletal:normal inspection, no edema, RLE in dressing Neurologic/Psych:AAOX3, grossly no focal neurological deficits Skin: normal color, warm Results & Data Results & Data ([facility]) Vital Signs (Past 12 Hours) Vital Signs Temp Pulse Pulse Resp BP Pulse Ox O2 Del Method 09/11/22 14:52 36.8 C 71 18 143/79 H 95 Room Air 09/11/22 12:20 93/62 L 09/11/22 12:00 36.4 C L 71 18 132/75 97 Room Air 09/11/22 09:59 73 09/11/22 08:07 35.8 C L 80 18 143/93 H 94 Room Air 09/11/22 08:03 Room Air 09/11/22 07:00 36.7 C 82 20 124/68 95 Room Air Laboratory Results Short CBC 09/11/22 Range/Units 05:34 WBC 11.85 H (4.8-10.8) K/ul Hgb 11.1 L (14.0-18.0) g/dl Hct 31.1 L (42.0-52.0) % Plt Count 184 (130-400) K/uL BMP 09/11/22 05:34 Sodium 134 L Potassium 4.5 Chloride 105 Carbon Dioxide 24 BUN 15 Creatinine 1.08 Glucose 135 H Calcium 8.3 L
[2022-09-11] MEDS: ENOXAPARIN INJ 30 MG/0.3 ML SYR SQ SCH (19:41)
[2022-09-11] MEDS: DOXYCYCLINE HYCLATE 100 MG CAP PO SCH (19:41)
[2022-09-12] MEDS: chlordiazePOXIDE HCl 5 MG CAP PO SCH ×2 (05:42→16:30)
[2022-09-12 06:16] LABS: Hematocrit (blood only) 30.1 % (42.0-52.0); Hemoglobin 10.6 g/dl (14.0-18.0); Mean Corpuscular Hemoglobin 33.3 pg (25.0-34.0); Mean Corpuscular Hgb Conc 35.2 g/dL (32.0-36.0); Mean Corpuscular Volume 94.7 fL (80.0-100.0); Mean Platelet Volume 10.8 fL (9.4-12.4); Platelet Count 194 K/uL (130-400); RDW Standard Deviation 45.1 fL (36.4-46.3); Red Blood Count 3.18 M/uL (4.70-6.10); White Blood Count 11.83 K/ul (4.8-10.8)
[2022-09-12 06:36] LABS: BUN Creatinine Ratio 17.4 (10-20); Calcium 8.6 mg/dl (8.5-10.1); Creatinine Clr Calc Pharmacy 67.1 ml/min; Est GFR (African American) 75.9 ml/min; Est GFR (Non-African American) 65.5 ml/min; Magnesium 1.7 mg/dl (1.7-2.4); Potassium 3.8 mmol/L (3.5-5.1)
[2022-09-12] MEDS: AMOXICILLIN/CLAVULANATE 875 MG TAB PO SCH ×2 (07:40→17:41)
--- NOTE | 2022-09-12 08:12 | Orthopedic Progress Note ---
Date of Service September 12, 2022 Assessment & Plan (1) Tibia/fibula fracture: Plan: Postop day 2 status post IM tibial nailing with Dr. Cage, doing well this morning. -Continue NWB RLE, PT/OT protocols -DVT prophylaxis-continue Lovenox, SCDs/TEDs -Continue daily dressing changes on knee -Pain management as written DC planning-possible need for senior living facility/rehab versus home health Follow-up with Dr. Cage or Grady Eastman PA-C in orthopedic surgery clinic 10-14 days post-operatively. Please call [facility] at [phone] to make an appointment. Orthopedics will sign off at this time. Please call with additional questions or concerns. Admission and Anticipated Discharge Date Admission Date: September 09, 2022 Subjective Doing well this morning. Notes some pain in his right knee but appropriate for post-op status and controlled on current regimen. Has numbness/tingling in his lower extremities secondary to peripheral neuropathy, unchanged from baseline. Otherwise, no additional acute complaints this morning. Physical Exam Physical Exam: General: Pleasant. Sitting up at the edge of bed eating breakfast, no acute distress Neuro: Awake, alert and oriented x 3 Right lower extremity: Post-op dressings in place, c/d/i. Compartments remain soft, not significantly tender to palpation. Baseline neuropathy unchanged. Toes/ankle mobile, d/p pulse intact Results & Data ([facility]) Vital Signs (Past 12 Hours) Vital Signs Temp Pulse Pulse Resp BP BP Pulse Ox 09/12/22 07:51 36.5 C 65 18 159/93 H 98 09/12/22 04:02 36.4 C L 74 16 131/73 93 09/11/22 23:06 36.6 C 75 20 145/91 H 94 09/12/22 00:00 72 09/11/22 22:52 O2 Del Method 09/12/22 07:51 Room Air 09/12/22 04:02 Room Air 09/11/22 23:06 Room Air 09/12/22 00:00 09/11/22 22:52 Room Air
[2022-09-12] MEDS: GABAPENTIN 300 MG CAP PO SCH ×3 (09:54→20:16)
[2022-09-12] MEDS: DOCUSATE SODIUM 100 MG CAP PO SCH ×2 (09:54→20:15)
[2022-09-12] MEDS: DOXYCYCLINE HYCLATE 100 MG CAP PO SCH ×2 (09:54→20:16)
[2022-09-12] MEDS: CYANOCOBALAMIN (B-12) 500 MCG TABLET PO SCH (09:55)
[2022-09-12] MEDS: EZETIMIBE 10 MG TABLET PO SCH (09:55)
[2022-09-12] MEDS: ATORVASTATIN 40 MG TAB PO SCH (09:55)
[2022-09-12] MEDS: METOPROLOL TARTRATE 50 MG TAB PO SCH ×2 (09:55→20:17)
[2022-09-12] MEDS: NICOTINE 21 MG/24 HR TDSY TD SCH (09:55)
[2022-09-12] MEDS: CHOLECALCIFEROL 1,000 UNITS 25 MCG TAB PO SCH (09:55)
[2022-09-12] MEDS: ASPIRIN 81 MG ECTAB PO SCH (09:55)
[2022-09-12] MEDS: PANTOprazole 40 MG TAB PO SCH (09:55)
[2022-09-12] MEDS: FOLIC ACID 1 MG TAB PO SCH (09:55)
[2022-09-12] MEDS: DULoxetine HCL 20 MG CAP PO SCH (09:55)
[2022-09-12] MEDS: THIAMINE HCL 100 MG TAB PO SCH (09:55)
[2022-09-12] MEDS: MULTIVITAMIN TAB PO SCH (09:56)
--- NOTE | 2022-09-12 17:30 | Hospitalist Progress Note ---
Date of Service September 12, 2022 Assessment & Plan (1) Tibia/fibula fracture: Plan: Patient is a 67 yr male, status post fall and right tibia-fibula fracture. Fall In setting of alcohol intoxication Right displaced distal tibia fracture/proximal fibular fracture due to fall Chronic Multiple healing/healed bilateral rib fractures Chronic anterior wedging at T12 --R leg X ray:Right tibial and fibular fractures as described above. --Lower Extremity CT: Acute nondisplaced fracture of the posterior malleolus. No distal right fibular fracture. Acute oblique displaced distal diaphyseal fracture of the right tibia. Acute oblique mildly displaced right fibular neck fracture. --CT ABD:Multiple healing/healed bilateral rib fractures. No pneumothorax. Moderate anterior wedging at T12 is technically age indeterminate but likely chronic. Emphysema. Left greater than right lower lobe airspace opacities likely representing a pneumonia. This favors an aspiration pneumonia given the bronchial mucoid impaction. Emphysema. No acute traumatic process within the chest, abdomen, or pelvis. A 6 mm nodule within the right middle lobe. Follow-up recommended below. --CT Head:No acute intracranial abnormality. Atrophy and microvascular ischemic changes. --Neck CT:No acute cervical spine fracture or subluxation. -- Chest CT:Multiple healing/healed bilateral rib fractures. No pneumothorax. Moderate anterior wedging at T12 is technically age indeterminate but likely chronic. Emphysema. Left greater than right lower lobe airspace opacities likely representing a pneumonia. This favors an aspiration pneumonia given the bronchial mucoid impaction. Emphysema. No acute traumatic process within the chest, abdomen, or pelvis. A 6 mm nodule within the right middle lobe. Follow-up recommended below. --S/P Right IM Distal Tibia on 09/10/22 by -- Fall precautions --Appreciate Orthopedics Input -- PT OT -- Nonweightbearing right lower extremity --On Lovenox SQ for DVT prophylaxis Mild leukocytosis likely reactive Needs placement Needs follow-up with orthopedics upon discharge Acute kidney injury Unknown baseline kidney function Cr:3.5>>2.45>1.1 Avoid nephrotoxic agents Hold lisinopril Bladder scan as needed Received IV fluids Possible sepsis Presented with hypotension, lactic acidosis Possible pneumonia Hypoxia --CT chest as above Blood cultures :No growth to date Aspiration precautions Empirically on Unasyn, doxycycline>> Doxy Wean off of supplemental oxygen to keep saturations greater than 88% Saturating low 90s on room air COPD On Albuterol PRN Continues to smoke Alcohol abuse Continue alcohol withdrawal protocol with Librium and Ativan p.r.n. Continue IV thiamine and folic acid Monitor for alcohol withdrawal symptoms. H/O CVA with no residual weakness Continue aspirin, statin. Right middle lobe lung Nodule CT showed 6 mm nodule within the right middle lobe H/O Tobacco use Needs follow up with Pulmonology as outpatient Tobacco abuse: [employer] Work[employer] Helper to quit Nicotine patch H/O Peripheral neuropathy in lower extremities Continue gabapentin. Hypertension. BP low on presentation Continue metoprolol 50 mg BID Hold amlodipine, lisinopril for now Monitor BP GERD continue PPI DVT Px: SCDs Lovenox SQ Code Status Full Code Admission and Anticipated Discharge Date Admission Date: September 09, 2022 Subjective Patient is seen and examined at bedside States feeling well today Right lower extremity pain at surgical site is controlled No new complaints Needs placement Denies any chest pain, dyspnea, cough, dizziness, nausea, abdominal pain Review of Systems Review of Systems: All systems reviewed & are unremarkable except as noted in Subjective Physical Exam Physical Exam: Physical Exam: Vitals signs as noted above General Appearance:Moderately built and nourished, no apparent distress Head: normocephalic, Atraumatic Eyes: normal inspection, EOMI Neck: supple, Trachea midline Respiratory/Chest:Decreased breath sounds, scattered wheezes, No accessory muscle use Cardiovascular: S1, S2, No murmur Abdomen/GI:Soft, Non tender, Bowel sounds present Extremities/Musculoskeletal:normal inspection, no edema, RLE in dressing Neurologic/Psych:AAOX3, grossly no focal neurological deficits Skin: normal color, warm Results & Data Results & Data ([facility]) Vital Signs (Past 12 Hours) Vital Signs Temp Pulse Pulse Resp BP Pulse Ox O2 Del Method 09/12/22 16:00 75 09/12/22 15:34 36.8 C 73 18 112/73 91 Room Air 09/12/22 14:25 Room Air 09/12/22 08:00 69 09/12/22 11:43 36.7 C 79 18 114/71 93 Room Air 09/12/22 07:51 36.5 C 65 18 159/93 H 98 Room Air Laboratory Results Short CBC 09/12/22 Range/Units 05:48 WBC 11.83 H (4.8-10.8) K/ul Hgb 10.6 L (14.0-18.0) g/dl Hct 30.1 L (42.0-52.0) % Plt Count 194 (130-400) K/uL [facility] 09/12/22 05:48 Sodium 137 Potassium 3.8 Chloride 106 Carbon Dioxide 25 BUN 20 Creatinine 1.15 Glucose 105 H Calcium 8.6
[2022-09-12] MEDS: ENOXAPARIN INJ 30 MG/0.3 ML SYR SQ SCH (20:16)
[2022-09-13 06:04] LABS: Hematocrit (blood only) 30.6 % (42.0-52.0); Hemoglobin 10.4 g/dl (14.0-18.0); Mean Corpuscular Hemoglobin 32.6 pg (25.0-34.0); Mean Corpuscular Volume 95.9 fL (80.0-100.0); Mean Platelet Volume 10.9 fL (9.4-12.4); Platelet Count 211 K/uL (130-400); RDW Coefficient of Variation 13.3 % (11.5-14.5); RDW Standard Deviation 46.7 fL (36.4-46.3); Red Blood Count 3.19 M/uL (4.70-6.10); White Blood Count 10.32 K/ul (4.8-10.8)
[2022-09-13 06:20] LABS: Calcium 8.6 mg/dl (8.5-10.1); Potassium 3.8 mmol/L (3.5-5.1)
[2022-09-13 06:26] LABS: BUN Creatinine Ratio 21.8 (10-20); Creatinine Clr Calc Pharmacy 69.8 ml/min; Est GFR (African American) 80.1 ml/min; Est GFR (Non-African American) 69.1 ml/min
[2022-09-13] MEDS: CHOLECALCIFEROL 1,000 UNITS 25 MCG TAB PO SCH (09:00)
[2022-09-13] MEDS: PANTOprazole 40 MG TAB PO SCH (09:00)
[2022-09-13] MEDS: EZETIMIBE 10 MG TABLET PO SCH (09:00)
[2022-09-13] MEDS: THIAMINE HCL 100 MG TAB PO SCH (09:01)
[2022-09-13] MEDS: AMOXICILLIN/CLAVULANATE 875 MG TAB PO SCH ×2 (09:01→17:46)
[2022-09-13] MEDS: ATORVASTATIN 40 MG TAB PO SCH (09:01)
[2022-09-13] MEDS: METOPROLOL TARTRATE 50 MG TAB PO SCH ×2 (09:01→20:39)
[2022-09-13] MEDS: ASPIRIN 81 MG ECTAB PO SCH (09:01)
[2022-09-13] MEDS: MULTIVITAMIN TAB PO SCH (09:01)
[2022-09-13] MEDS: FOLIC ACID 1 MG TAB PO SCH (09:01)
[2022-09-13] MEDS: DOCUSATE SODIUM 100 MG CAP PO SCH ×2 (09:01→20:38)
[2022-09-13] MEDS: CYANOCOBALAMIN (B-12) 500 MCG TABLET PO SCH (09:01)
[2022-09-13] MEDS: DULoxetine HCL 20 MG CAP PO SCH (09:01)
[2022-09-13] MEDS: GABAPENTIN 300 MG CAP PO SCH ×3 (09:01→20:39)
[2022-09-13] MEDS: DOXYCYCLINE HYCLATE 100 MG CAP PO SCH ×2 (09:02→20:38)
[2022-09-13] MEDS: NICOTINE 21 MG/24 HR TDSY TD SCH (09:02)
--- NOTE | 2022-09-13 15:16 | Hospitalist Progress Note ---
Date of Service September 13, 2022 Assessment & Plan (1) Tibia/fibula fracture: Plan: Patient is a 67 yr male, status post fall and right tibia-fibula fracture. Fall In setting of alcohol intoxication Right displaced distal tibia fracture/proximal fibular fracture due to fall Chronic Multiple healing/healed bilateral rib fractures Chronic anterior wedging at T12 --R leg X ray:Right tibial and fibular fractures as described above. --Lower Extremity CT: Acute nondisplaced fracture of the posterior malleolus. No distal right fibular fracture. Acute oblique displaced distal diaphyseal fracture of the right tibia. Acute oblique mildly displaced right fibular neck fracture. --CT ABD:Multiple healing/healed bilateral rib fractures. No pneumothorax. Moderate anterior wedging at T12 is technically age indeterminate but likely chronic. Emphysema. Left greater than right lower lobe airspace opacities likely representing a pneumonia. This favors an aspiration pneumonia given the bronchial mucoid impaction. Emphysema. No acute traumatic process within the chest, abdomen, or pelvis. A 6 mm nodule within the right middle lobe. Follow-up recommended below. --CT Head:No acute intracranial abnormality. Atrophy and microvascular ischemic changes. --Neck CT:No acute cervical spine fracture or subluxation. -- Chest CT:Multiple healing/healed bilateral rib fractures. No pneumothorax. Moderate anterior wedging at T12 is technically age indeterminate but likely chronic. Emphysema. Left greater than right lower lobe airspace opacities likely representing a pneumonia. This favors an aspiration pneumonia given the bronchial mucoid impaction. Emphysema. No acute traumatic process within the chest, abdomen, or pelvis. A 6 mm nodule within the right middle lobe. Follow-up recommended below. --S/P Right IM Distal Tibia on 09/10/22 by -- Fall precautions --Appreciate Orthopedics Input -- PT OT -- Nonweightbearing right lower extremity --On Lovenox SQ for DVT prophylaxis Mild leukocytosis likely reactive Needs follow-up with orthopedics upon discharge Waiting for rehab placement Acute kidney injury Unknown baseline kidney function Cr:3.5>>2.45>1.1 Avoid nephrotoxic agents Hold lisinopril Bladder scan as needed Received IV fluids Possible sepsis Presented with hypotension, lactic acidosis Possible pneumonia Hypoxia --CT chest as above Blood cultures :No growth to date Aspiration precautions Empirically on Unasyn, doxycycline>> Doxy, Augmentin Wean off of supplemental oxygen to keep saturations greater than 88% Saturating well on room air COPD On Albuterol PRN Continues to smoke Alcohol abuse Continue alcohol withdrawal protocol with Librium and Ativan p.r.n. Continue IV thiamine and folic acid Monitor for alcohol withdrawal symptoms. H/O CVA with no residual weakness Continue aspirin, statin. 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 Hypertension. BP low on presentation Continue metoprolol 50 mg BID Hold amlodipine, lisinopril for now Monitor BP GERD continue PPI DVT Px: SCDs Lovenox SQ Code Status Full Code Admission and Anticipated Discharge Date Admission Date: September 09, 2022 Subjective Patient is seen and examined at bedside Doing well Waiting for placement Denies any pain at surgical site Also denies any chest pain, dyspnea, cough, dizziness, nausea, abdominal pain Review of Systems Review of Systems: All systems reviewed & are unremarkable except as noted in Subjective Physical Exam Physical Exam: Physical Exam: Vitals signs as noted above General Appearance:Moderately built and nourished, no apparent distress Head: normocephalic, Atraumatic Eyes: normal inspection, EOMI Neck: supple, Trachea midline Respiratory/Chest:Decreased breath sounds, scattered wheezes, No accessory muscle use Cardiovascular: S1, S2, No murmur Abdomen/GI:Soft, Non tender, Bowel sounds present Extremities/Musculoskeletal:normal inspection, no edema, RLE in dressing Neurologic/Psych:AAOX3, grossly no focal neurological deficits Skin: normal color, warm Results & Data Results & Data ([facility]) Vital Signs (Past 12 Hours) Vital Signs Temp Pulse Pulse Resp BP BP Pulse Ox 09/13/22 14:55 09/13/22 11:43 36.7 C 78 18 121/72 94 09/13/22 08:00 68 09/13/22 07:18 36.6 C 77 18 144/84 H 94 09/13/22 03:25 36.8 C 71 18 125/76 96 O2 Del Method 09/13/22 14:55 Room Air 09/13/22 11:43 Room Air 09/13/22 08:00 09/13/22 07:18 Room Air 09/13/22 03:25 Room Air Laboratory Results Short CBC 09/13/22 Range/Units 05:19 WBC 10.32 (4.8-10.8) K/ul Hgb 10.4 L (14.0-18.0) g/dl Hct 30.6 L (42.0-52.0) % Plt Count 211 (130-400) K/uL BMP 09/13/22 05:19 Sodium 139 Potassium 3.8 Chloride 109 H Carbon Dioxide 25 BUN 24 H Creatinine 1.10 Glucose 101 H Calcium 8.6
[2022-09-13] MEDS: ENOXAPARIN INJ 30 MG/0.3 ML SYR SQ SCH (20:39)
[2022-09-14] MEDS: DOXYCYCLINE HYCLATE 100 MG CAP PO SCH ×2 (08:07→20:01)
[2022-09-14] MEDS: ASPIRIN 81 MG ECTAB PO SCH (08:07)
[2022-09-14] MEDS: AMOXICILLIN/CLAVULANATE 875 MG TAB PO SCH ×2 (08:07→17:14)
[2022-09-14] MEDS: ATORVASTATIN 40 MG TAB PO SCH (08:07)
[2022-09-14] MEDS: GABAPENTIN 300 MG CAP PO SCH ×3 (08:07→20:01)
[2022-09-14] MEDS: NICOTINE 21 MG/24 HR TDSY TD SCH (08:07)
[2022-09-14] MEDS: DOCUSATE SODIUM 100 MG CAP PO SCH ×2 (08:07→20:01)
[2022-09-14] MEDS: THIAMINE HCL 100 MG TAB PO SCH (08:07)
[2022-09-14] MEDS: CYANOCOBALAMIN (B-12) 500 MCG TABLET PO SCH (08:08)
[2022-09-14] MEDS: EZETIMIBE 10 MG TABLET PO SCH (08:08)
[2022-09-14] MEDS: MULTIVITAMIN TAB PO SCH (08:08)
[2022-09-14] MEDS: DULoxetine HCL 20 MG CAP PO SCH (08:08)
[2022-09-14] MEDS: PANTOprazole 40 MG TAB PO SCH (08:08)
[2022-09-14] MEDS: FOLIC ACID 1 MG TAB PO SCH (08:08)
[2022-09-14] MEDS: METOPROLOL TARTRATE 50 MG TAB PO SCH ×2 (08:08→20:01)
[2022-09-14] MEDS: CHOLECALCIFEROL 1,000 UNITS 25 MCG TAB PO SCH (08:08)
--- NOTE | 2022-09-14 17:05 | Hospitalist Progress Note ---
Date of Service September 14, 2022 Assessment & Plan (1) Tibia/fibula fracture: Plan: Patient is a 67 yr male, status post fall and right tibia-fibula fracture. Fall In setting of alcohol intoxication Right displaced distal tibia fracture/proximal fibular fracture due to fall Chronic Multiple healing/healed bilateral rib fractures Chronic anterior wedging at T12 --R leg X ray:Right tibial and fibular fractures as described above. --Lower Extremity CT: Acute nondisplaced fracture of the posterior malleolus. No distal right fibular fracture. Acute oblique displaced distal diaphyseal fracture of the right tibia. Acute oblique mildly displaced right fibular neck fracture. --CT ABD:Multiple healing/healed bilateral rib fractures. No pneumothorax. Moderate anterior wedging at T12 is technically age indeterminate but likely chronic. Emphysema. Left greater than right lower lobe airspace opacities likely representing a pneumonia. This favors an aspiration pneumonia given the bronchial mucoid impaction. Emphysema. No acute traumatic process within the chest, abdomen, or pelvis. A 6 mm nodule within the right middle lobe. Follow-up recommended below. --CT Head:No acute intracranial abnormality. Atrophy and microvascular ischemic changes. --Neck CT:No acute cervical spine fracture or subluxation. -- Chest CT:Multiple healing/healed bilateral rib fractures. No pneumothorax. Moderate anterior wedging at T12 is technically age indeterminate but likely chronic. Emphysema. Left greater than right lower lobe airspace opacities likely representing a pneumonia. This favors an aspiration pneumonia given the bronchial mucoid impaction. Emphysema. No acute traumatic process within the chest, abdomen, or pelvis. A 6 mm nodule within the right middle lobe. Follow-up recommended below. --S/P Right IM Distal Tibia on 09/10/22 by -- Fall precautions --Appreciate Orthopedics Input -- PT OT -- Nonweightbearing right lower extremity --On Lovenox SQ for DVT prophylaxis Needs follow-up with orthopedics upon discharge Unsafe to be discharged home Placement issues due to insurance Acute kidney injury Unknown baseline kidney function Cr:3.5>>2.45>1.1 Avoid nephrotoxic agents Hold lisinopril Bladder scan as needed Received IV fluids Possible sepsis Presented with hypotension, lactic acidosis Possible pneumonia Hypoxia --CT chest as above Blood cultures :No growth to date Aspiration precautions Empirically on Unasyn, doxycycline>> Doxy, Augmentin Wean off of supplemental oxygen to keep saturations greater than 88% Saturating well on room air COPD On Albuterol PRN Continues to smoke Alcohol abuse Continue alcohol withdrawal protocol with Librium and Ativan p.r.n. Continue IV thiamine and folic acid Monitor for alcohol withdrawal symptoms. H/O CVA with no residual weakness Continue aspirin, statin. 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 Hypertension. BP low on presentation Continue metoprolol 50 mg BID Hold amlodipine, lisinopril for now Monitor BP GERD continue PPI DVT Px: SCDs Lovenox SQ Code Status Full Code Disposition Likely [facility] tomorrow Admission and Anticipated Discharge Date Admission Date: September 09, 2022 Subjective Patient is seen and examined at bedside No new complaints Discussed with patient's family at bedside Waiting for placement Denies any chest pain, dyspnea, cough, dizziness, nausea, abdominal pain Review of Systems Review of Systems: All systems reviewed & are unremarkable except as noted in Subjective Physical Exam Physical Exam: Physical Exam: Vitals signs as noted above General Appearance:Moderately built and nourished, no apparent distress Head: normocephalic, Atraumatic Eyes: normal inspection, EOMI Neck: supple, Trachea midline Respiratory/Chest:Decreased breath sounds, scattered wheezes, No accessory muscle use Cardiovascular: S1, S2, No murmur Abdomen/GI:Soft, Non tender, Bowel sounds present Extremities/Musculoskeletal:normal inspection, no edema, RLE in dressing Neurologic/Psych:AAOX3, grossly no focal neurological deficits Skin: normal color, warm Results & Data Results & Data ([facility]) Vital Signs (Past 12 Hours) Vital Signs Temp Pulse Pulse Pulse Resp BP Pulse Ox 09/14/22 16:00 82 09/14/22 15:59 37.3 C 82 18 130/80 95 09/14/22 11:28 36.6 C 83 18 128/83 96 09/14/22 08:00 79 09/14/22 07:58 36.5 C 84 18 146/91 H 95 09/14/22 07:50 O2 Del Method 09/14/22 16:00 09/14/22 15:59 Room Air 09/14/22 11:28 Room Air 09/14/22 08:00 09/14/22 07:58 Room Air 09/14/22 07:50 Room Air
[2022-09-14] MEDS: ENOXAPARIN INJ 30 MG/0.3 ML SYR SQ SCH (20:01)
[2022-09-15] MEDS: ATORVASTATIN 40 MG TAB PO SCH (08:14)
[2022-09-15] MEDS: METOPROLOL TARTRATE 50 MG TAB PO SCH (08:14)
[2022-09-15] MEDS: CYANOCOBALAMIN (B-12) 500 MCG TABLET PO SCH (08:14)
[2022-09-15] MEDS: DOXYCYCLINE HYCLATE 100 MG CAP PO SCH (08:14)
[2022-09-15] MEDS: DOCUSATE SODIUM 100 MG CAP PO SCH (08:14)
[2022-09-15] MEDS: GABAPENTIN 300 MG CAP PO SCH (08:14)
[2022-09-15] MEDS: MULTIVITAMIN TAB PO SCH (08:14)
[2022-09-15] MEDS: PANTOprazole 40 MG TAB PO SCH (08:14)
[2022-09-15] MEDS: THIAMINE HCL 100 MG TAB PO SCH (08:15)
[2022-09-15] MEDS: NICOTINE 21 MG/24 HR TDSY TD SCH (08:15)
[2022-09-15] MEDS: EZETIMIBE 10 MG TABLET PO SCH (08:15)
[2022-09-15] MEDS: ASPIRIN 81 MG ECTAB PO SCH (08:15)
[2022-09-15] MEDS: AMOXICILLIN/CLAVULANATE 875 MG TAB PO SCH (08:15)
[2022-09-15] MEDS: DULoxetine HCL 20 MG CAP PO SCH (08:15)
[2022-09-15] MEDS: CHOLECALCIFEROL 1,000 UNITS 25 MCG TAB PO SCH (08:15)
[2022-09-15] MEDS: FOLIC ACID 1 MG TAB PO SCH (08:15)
--- NOTE | 2022-09-15 12:14 | Hospitalist Progress Note ---
Date of Service September 15, 2022 Assessment & Plan (1) Tibia/fibula fracture: Plan: Patient is a 67 yr male, status post fall and right tibia-fibula fracture. Fall In setting of alcohol intoxication Right displaced distal tibia fracture/proximal fibular fracture due to fall Chronic Multiple healing/healed bilateral rib fractures Chronic anterior wedging at T12 --R leg X ray:Right tibial and fibular fractures as described above. --Lower Extremity CT: Acute nondisplaced fracture of the posterior malleolus. No distal right fibular fracture. Acute oblique displaced distal diaphyseal fracture of the right tibia. Acute oblique mildly displaced right fibular neck fracture. --CT ABD:Multiple healing/healed bilateral rib fractures. No pneumothorax. Moderate anterior wedging at T12 is technically age indeterminate but likely chronic. Emphysema. Left greater than right lower lobe airspace opacities likely representing a pneumonia. This favors an aspiration pneumonia given the bronchial mucoid impaction. Emphysema. No acute traumatic process within the chest, abdomen, or pelvis. A 6 mm nodule within the right middle lobe. Follow-up recommended below. --CT Head:No acute intracranial abnormality. Atrophy and microvascular ischemic changes. --Neck CT:No acute cervical spine fracture or subluxation. -- Chest CT:Multiple healing/healed bilateral rib fractures. No pneumothorax. Moderate anterior wedging at T12 is technically age indeterminate but likely chronic. Emphysema. Left greater than right lower lobe airspace opacities likely representing a pneumonia. This favors an aspiration pneumonia given the bronchial mucoid impaction. Emphysema. No acute traumatic process within the chest, abdomen, or pelvis. A 6 mm nodule within the right middle lobe. Follow-up recommended below. --S/P Right IM Distal Tibia on 09/10/22 by -- Fall precautions --Appreciate Orthopedics Input -- PT OT -- Nonweightbearing right lower extremity --On Lovenox SQ for DVT prophylaxis Needs follow-up with orthopedics upon discharge Unsafe to be discharged home Plan to be discharged to rehab facility today Acute kidney injury Unknown baseline kidney function Cr:3.5>>2.45>1.1 Avoid nephrotoxic agents Bladder scan as needed Received IV fluids Possible sepsis Presented with hypotension, lactic acidosis Possible pneumonia Hypoxia --CT chest as above Blood cultures :No growth to date Aspiration precautions Empirically on Unasyn, doxycycline>> Doxy, Augmentin--completed the course Wean off of supplemental oxygen to keep saturations greater than 88% Saturating well on room air COPD On Albuterol PRN Continues to smoke Alcohol abuse Continue alcohol withdrawal protocol with Librium and Ativan p.r.n. Continue IV thiamine and folic acid Monitor for alcohol withdrawal symptoms. H/O CVA with no residual weakness Continue aspirin, statin. 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 Hypertension. BP low on presentation Continue metoprolol 50 mg BID Hold amlodipine, lisinopril for now Monitor BP GERD continue PPI DVT Px: SCDs Lovenox SQ Code Status Full Code Disposition SNF today Admission and Anticipated Discharge Date Admission Date: September 09, 2022 Subjective Patient is seen and examined at bedside Doing well Denies any chest pain, dyspnea, cough, dizziness, nausea, abdominal pain Planed to be discharged to rehab today Review of Systems Review of Systems: All systems reviewed & are unremarkable except as noted in Subjective Physical Exam Physical Exam: Physical Exam: Vitals signs as noted above General Appearance:Moderately built and nourished, no apparent distress Head: normocephalic, Atraumatic Eyes: normal inspection, EOMI Neck: supple, Trachea midline Respiratory/Chest:Decreased breath sounds, scattered wheezes, No accessory muscle use Cardiovascular: S1, S2, No murmur Abdomen/GI:Soft, Non tender, Bowel sounds present Extremities/Musculoskeletal:normal inspection, no edema, RLE in dressing Neurologic/Psych:AAOX3, grossly no focal neurological deficits Skin: normal color, warm Results & Data Results & Data ([facility]) Vital Signs (Past 12 Hours) Vital Signs Temp Pulse Pulse Resp BP BP Pulse Ox 09/15/22 12:03 09/15/22 11:21 36.8 C 82 20 125/79 96 09/15/22 08:00 79 09/15/22 07:33 37.2 C 73 20 146/90 H 97 09/15/22 03:38 37.1 C 82 18 143/80 H 94 O2 Del Method 09/15/22 12:03 Room Air 09/15/22 11:21 Room Air 09/15/22 08:00 09/15/22 07:33 Room Air 09/15/22 03:38 Room Air
--- NOTE | 2022-09-15 12:28 | Discharge Summary ---
Date of Service September 15, 2022 Admission HPI Per Admitting Provider CHIEF COMPLAINT: Status post fall, right tibia-fibula fracture. 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 It seems he also has depression, GERD and peripheral neuropathy in the lower extremities, thinks it is coming from his back, but did not see any spine surgeon yet, and ongoing tobacco abuse and alcoholism. He says he smokes since last 57 years one pack a day and he also drinks four beers regularly every day a nd every other day drinks one-fifth of whiskey, today he drank 4 beers and one- fifth of whiskey and he was trying to go to bathroom, his legs gave away and he fell down, fell on knees he was able to get up, but he was in lot of pain, was brought into ER and found to have proximal fibula and distal tibia fracture. Long leg splint was placed in right lower extremity, in the ER. The patient was also hypotensive when he came in with blood pressure in the 80s, improved with fluids and his lactate was 2.6. CT of the chest preliminary report showing left lower lobe infiltrate. The patient is currently resting comfortably, hemodynamically stable, alert and oriented. Denies any headache. Denies any dizziness, No blurred visions, no earache, no runny nose, no sore throat, no cough. No difficulty swallowing. Eating and drinking okay. No chest pain, no shortness of breath, no nausea, no abdominal pain. Normal bowel and bladder movements. Admission Exam Per Admitting Provider PHYSICAL EXAMINATION: GENERAL: The patient is of moderate build, not in acute distress. Alert and oriented. VITAL SIGNS: Temperature 36.8, pulse 82, respiratory rate 18, blood pressure when he came in was 85/45, currently 107/64, oxygen 94%, currently on 4 L. HEENT: Pupils equal, round and reactive to light. Oral mucosa moist. NECK: No JVD, no neck masses. CARDIOVASCULAR: S1 and S2 heard. Regular rate and rhythm. No murmur, no gallop. RESPIRATORY SYSTEM: Normal AP diameter. No accessory muscle use. No wheezing or crackles. ABDOMEN: Soft, bowel sounds present, nontender, no distention. CENTRAL NERVOUS SYSTEM: Alert and oriented. Speech is clear. No facial droop. Obeys simple commands. EXTREMITIES: Right lower extremity is placed in long leg splint. No erythema seen. Principal Diagnosis Right displaced distal tibia fracture/proximal fibular fracture Fall Acute kidney injury Alcohol use disorder COPD Right middle lobe lung Nodule Discharge Data Allergies Allergy/AdvReac Type Severity Reaction Status Date / Time No Known Allergies Allergy Verified 09/09/22 00:48 Consultations 09/09/22 03:04 ED Decision to Admit Stat 09/09/22 08:00 Consult Orthopedic Surgery Routine 09/09/22 10:25 Consult Anesthesiology Routine Procedures Performed Operation Date: 09/10/22 13:00 Actual Procedures p Right IM Distal Tibia(Right) - [facility], Laboratory Results WBC 10.32 K/ul (4.8-10.8) 09/13/22 05:19 RBC 3.19 M/uL (4.70-6.10) L 09/13/22 05:19 Hgb 10.4 g/dl (14.0-18.0) L 09/13/22 05:19 Hct 30.6 % (42.0-52.0) L 09/13/22 05:19 MCV 95.9 fL (80.0-100.0) 09/13/22 05:19 MCH 32.6 pg (25.0-34.0) 09/13/22 05:19 MCHC 34.0 g/dL (32.0-36.0) 09/13/22 05:19 RDW Std Deviation 46.7 fL (36.4-46.3) H 09/13/22 05:19 RDW Coeff of Shayan 13.3 % (11.5-14.5) 09/13/22 05:19 Plt Count 211 K/uL (130-400) 09/13/22 05:19 MPV 10.9 fL (9.4-12.4) 09/13/22 05:19 Immature Gran % (Auto) 0.2 % 09/09/22 07:08 Neut % (Auto) 45.3 % 09/09/22 07:08 Lymph % (Auto) 38.6 % 09/09/22 07:08 [place] % (Auto) 13.1 % 09/09/22 07:08 Eos % (Auto) 2.2 % 09/09/22 07:08 Baso % (Auto) 0.6 % 09/09/22 07:08 Neut # (Auto) 4.12 K/uL (1.40-6.50) 09/09/22 07:08 Lymph # (Auto) 3.51 K/uL (1.2-3.4) H 09/09/22 07:08 [place] # (Auto) 1.19 K/uL (0.11-0.59) H 09/09/22 07:08 Eos # (Auto) 0.20 K/uL (0-0.50) 09/09/22 07:08 Baso # (Auto) 0.05 K/uL (0-0.2) 09/09/22 07:08 Immature Gran # (Auto) 0.02 K/uL (0.01-0.20) 09/09/22 07:08 RBC Morphology Unremarkable 09/09/22 00:16 PT 11.0 Seconds (9.0-12.0) 09/09/22 00:16 INR 1.0 (0.9-1.1) 09/09/22 00:16 Sodium 139 mmol/L (136-145) 09/13/22 05:19 Potassium 3.8 mmol/L (3.5-5.1) 09/13/22 05:19 Chloride 109 mmol/L (98-107) H 09/13/22 05:19 Carbon Dioxide 25 mmol/L (21-32) 09/13/22 05:19 Anion Gap 5 (3-11) 09/13/22 05:19 BUN 24 mg/dl (6-23) H 09/13/22 05:19 Creatinine 1.10 mg/dl (0.6-1.4) 09/13/22 05:19 Est Cr Clr Drug Dosing 69.8 ml/min 09/13/22 05:19 Est GFR ( Amer) 80.1 ml/min 09/13/22 05:19 Est GFR (Non-Af Amer) 69.1 ml/min 09/13/22 05:19 BUN/Creatinine Ratio 21.8 (10-20) H 09/13/22 05:19 Glucose 101 mg/dl (70-99(Fasting)) H 09/13/22 05:19 Lactate 2.0 mmol/L (0.4-2.0) 09/09/22 04:35 Calcium 8.6 mg/dl (8.5-10.1) 09/13/22 05:19 Magnesium 1.7 mg/dl (1.7-2.4) 09/12/22 05:48 Total Bilirubin 0.9 mg/dl (0.2-1.0) 09/09/22 00:16 AST 21 U/L (13-39) 09/09/22 00:16 ALT 20 U/L (7-52) 09/09/22 00:16 Alkaline Phosphatase 60 U/L (34-104) 09/09/22 00:16 Total Protein 7.5 gm/dl (6.0-8.3) 09/09/22 00:16 Albumin 4.0 gm/dl (3.4-5.0) 09/09/22 00:16 Globulin 3.5 gm/dl (2.5-4.0) 09/09/22 00:16 Albumin/Globulin Ratio 1.1 (0.9-2) 09/09/22 00:16 Vitamin B12 924 pg/ml (180-914) H 09/09/22 07:08 Folate 11.95 ng/ml (>5.38) 09/09/22 07:08 Procalcitonin < 0.05 ng/ml (0-0.5) 09/10/22 05:43 Nasal Screen MRSA (PCR) Negative (Negative) 09/09/22 06:29 Ethyl Alcohol mg/dL 220.8 mg/dl (<10.0) H 09/09/22 00:16 SARS-CoV-2, RNA, NAAT NEGATIVE (NEGATIVE) 09/15/22 Unknown Impressions Chest X-Ray 09/09/22 00:12 XR chest 1V portable HISTORY: Fall. weakness COMPARISON: None. FINDINGS: No pneumothorax. No pleural effusions. The cardiac silhouette is borderline enlarged. There is emphysema. Bibasilar interstitial thickening most pronounced on the left. The upper lung zones are clear. IMPRESSION: 1. Emphysema. 2. Bibasilar interstitial thickening most pronounced on the left. This could be due to vascular crowding from the emphysema or a low-grade pneumonitis. ACT 112: Negative or not required by law. Electronically signed by: Abiodun Camlio M.D. 09/09/2022 10:34 AM Abdomen/Pelvis CT 09/09/22 00:55 CT chest diagnostic wo con, CT abd pelvis wo con CT DOSE: 673.69 mGy.cm HISTORY: Fall. TRAUMA TECHNIQUE: Multiaxial CT images of the chest , abdomen, and pelvis were performed without contrast. A dose lowering technique was utilized adhering to the principles of ALARA. COMPARISON: Abdomen and pelvis CT 10/29/2005. FINDINGS: Chest CT: No acute fractures identified within the chest. There are multiple healing/healed bilateral rib fractures. Moderate anterior wedging at T12 is technically age indeterminate but likely chronic. No pneumothorax. Emphysema. Diffuse bronchial wall thickening with mucoid impaction of the left lower lobe bronchi. There is also focal area of mucoid material within the right mainstem bronchus. Consolidation within the majority of the left lower lobe. There are patchy airspace opacities within the right lower lobe posteriorly. This favors a pneumonia and could be due to aspiration. A 5 mm subpleural nodule on the right minor fissure on image 132. A 6 mm nodule within the right middle lobe on image 152. No mediastinal or hilar lymphadenopathy. Normal esophagus. Calcified plaque within the normal caliber thoracic aorta. Severe coronary artery calcifications are noted. Abdomen/pelvis CT: No pneumoperitoneum. No pneumatosis. No acute fractures identified. Hepatic steatosis. The unenhanced gallbladder, pancreas, spleen, and adrenal glands unremarkable. Bilateral renal vascular calcifications are noted. No hydronephrosis. No retroperitoneal lymphadenopathy or hematoma. There is a mildly ectatic and calcified abdominal aorta. Mild bladder wall thickening may be due to underdistention or chronic outlet obstruction from the mildly enlarged prostate gland. No pelvic free fluid. Suboptimal evaluation for bowel pathology due to the lack of intravenous and oral contrast. However, there is no definite bowel wall thickening or obstruction. Normal appendix. IMPRESSION: 1. Multiple healing/healed bilateral rib fractures. No pneumothorax. 2. Moderate anterior wedging at T12 is technically age indeterminate but likely chronic. 3. Emphysema. 4. Left greater than right lower lobe airspace opacities likely representing a pneumonia. This favors an aspiration pneumonia given the bronchial mucoid impact ion. 5. Emphysema. 6. No acute traumatic process within the chest, abdomen, or pelvis. 7. A 6 mm nodule within the right middle lobe. Follow-up recommended below. 8. Additional findings as described above. Please refer to below summary of Fleischner criteria recommendations for follow- up of incidental CT nodules (Karri Dillon, Guidelines for management of small pulmonary nodules detected on CT scans: A statement from the Fleischner Society, Radiology 237: [phone].) SOLID NODULES Solitary nodule size: <6 mm * Low risk patients: no follow-up needed * high risk patients: optional CT at 12 months Solitary nodule size: 6-8 mm * Low risk patients: follow-up at 6-12 months, then consider further follow-up at 18-24 months * high risk patients: initial follow-up CT at 6-12 months and then at 18-24 months if no change Solitary nodule size: >8 mm * either low or high risk patients - consider follow-up CT at 3 months, and/or CT-PET, and/or biopsy Multiple nodules size: <6 mm * Low risk patients: no routine follow-up * high risk patients: optional CT at 12 months Multiple nodules size: 6-8 mm * Low risk patients: follow-up at 3-6 months, then consider further follow-up at 18-24 months * high risk patients: follow-up at 3-6 months, then at 18-24 months if no change Multiple nodules size: >8 mm * Low risk patients: follow-up at 3-6 months, then consider further follow-up at 18-24 months * high risk patients: follow-up at 3-6 months, then at 18-24 months if no change Note: newly detected indeterminate nodule in persons 35 years of age or older. * Low risk patients: minimal or absent history of smoking and/or other known risk factors * high risk patients: history of smoking or of other known risk factors (e.g. first degree relative with lung cancer, or exposure to asbestos, radon, uranium) * if a nodule up to 8 mm is partly solid or is ground glass further follow-up is required after 24 months to exclude possible slow growing adenocarcinoma (ESTELA) SUBSOLID NODULES Solitary pure ground-glass nodule * nodule size <6 mm - no CT follow-up required * nodule size >=6 mm - follow-up CT at 6-12 months, then every 2 years until 5 years Solitary part-solid nodule * nodule size <6 mm - no CT follow-up required * nodule size >=6 mm - follow-up CT at 3-6 months. If unchanged, and solid component remains <6 mm, then annual follow-up for 5 years Multiple subsolid nodules * nodule size <6 mm - follow-up CT at 3-6 months, consider further follow-up at 2 and 4 years if stable * nodule size >=6 mm - follow-up CT at 3-6 months, subsequent management based on the most suspicious nodule(s) ACT 112: Positive. There are findings on this exam that require communication between the performing entity and the patient following Patient Test Result Information Act ([place] Act 112) guidelines. Electronically signed by: Abiodun Camilo M.D. 09/09/2022 7:[address] 09/09/22 00:55 CT OF THE CERVICAL SPINE WITHOUT CONTRAST CLINICAL HISTORY: trauma COMPARISON STUDY: No previous studies for comparison. TECHNIQUE: Helical axial images of the cervical spine were obtained without IV contrast. Sagittal and coronal reconstructions were viewed. Automated exposure control was utilized for the study. A dose lowering technique was utilized adhering to the principles of ALARA. FINDINGS: There is straightening of the cervical lordosis. Vertebral body heights are maintained. No acute cervical spine fracture or subluxation is present. There is no prevertebral edema. Facet joints are intact. Moderate multilevel degenerative changes within the cervical spine are present. IMPRESSION: No acute cervical spine fracture or subluxation. ACT 112: Negative or not required by law. Electronically signed by: Edmund Steinberg M.D. 09/09/2022 6:[address] 09/09/22 00:[address] DOSE: HISTORY: fall TECHNIQUE: Multiaxial CT images of the head were performed without the use of intravenous contrast. Automated exposure control was utilized for this study. A dose lowering technique was utilized adhering to the principles of ALARA. Comparison: None. Findings: Mild mucosal thickening within the paranasal sinuses. The right mastoid air cells are opacified. The left mastoid air cells are clear. The calvarium and skull base are intact. There is no mass, hematoma, midline shift, acute infarct. White matter hypodensity is nonspecific but suggestive of microvascular ischemic change. The ventricles and sulci demonstrate mild age- related involutional changes. Old lacunar infarcts seen in the left basal ganglia and right thalamus. Impression: No acute intracranial abnormality. Atrophy and microvascular ischemic changes. ACT 112: Negative or not required by law. Electronically signed by: Abiodun Camilo M.D. 09/09/2022 7:[address] 09/09/22 01:33 CT chest diagnostic wo con, CT abd pelvis wo con CT DOSE: 673.69 mGy.cm HISTORY: Fall. TRAUMA TECHNIQUE: Multiaxial CT images of the chest , abdomen, and pelvis were performed without contrast. A dose lowering technique was utilized adhering to the principles of ALARA. COMPARISON: Abdomen and pelvis CT 10/29/2005. FINDINGS: Chest CT: No acute fractures identified within the chest. There are multiple healing/healed bilateral rib fractures. Moderate anterior wedging at T12 is technically age indeterminate but likely chronic. No pneumothorax. Emphysema. Diffuse bronchial wall thickening with mucoid impaction of the left lower lobe bronchi. There is also focal area of mucoid material within the right mainstem bronchus. Consolidation within the majority of the left lower lobe. There are patchy airspace opacities within the right lower lobe posteriorly. This favors a pneumonia and could be due to aspiration. A 5 mm subpleural nodule on the right minor fissure on image 132. A 6 mm nodule within the right middle lobe on image 152. No mediastinal or hilar lymphadenopathy. Normal esophagus. Calcified plaque within the normal caliber thoracic aorta. Severe coronary artery calcifications are noted. Abdomen/pelvis CT: No pneumoperitoneum. No pneumatosis. No acute fractures identified. Hepatic steatosis. The unenhanced gallbladder, pancreas, spleen, and adrenal glands unremarkable. Bilateral renal vascular calcifications are noted. No hydronephrosis. No retroperitoneal lymphadenopathy or hematoma. There is a mildly ectatic and calcified abdominal aorta. Mild bladder wall thickening may be due to underdistention or chronic outlet obstruction from the mildly enlarged prostate gland. No pelvic free fluid. Suboptimal evaluation for bowel pathology due to the lack of intravenous and oral contrast. However, there is no definite bowel wall thickening or obstruction. Normal appendix. IMPRESSION: 1. Multiple healing/healed bilateral rib fractures. No pneumothorax. 2. Moderate anterior wedging at T12 is technically age indeterminate but likely chronic. 3. Emphysema. 4. Left greater than right lower lobe airspace opacities likely representing a pneumonia. This favors an aspiration pneumonia given the bronchial mucoid impaction. 5. Emphysema. 6. No acute traumatic process within the chest, abdomen, or pelvis. 7. A 6 mm nodule within the right middle lobe. Follow-up recommended below. 8. Additional findings as described above. Please refer to below summary of Fleischner criteria recommendations for follow- up of incidental CT nodules (Karri Dillon, Guidelines for management of small pulmonary nodules detected on CT scans: A statement from the Fleischner Society, Radiology 237: [phone].) SOLID NODULES Solitary nodule size: <6 mm * Low risk patients: no follow-up needed * high risk patients: optional CT at 12 months Solitary nodule size: 6-8 mm * Low risk patients: follow-up at 6-12 months, then consider further follow-up at 18-24 months * high risk patients: initial follow-up CT at 6-12 months and then at 18-24 months if no change Solitary nodule size: >8 mm * either low or high risk patients - consider follow-up CT at 3 months, and/or CT-PET, and/or biopsy Multiple nodules size: <6 mm * Low risk patients: no routine follow-up * high risk patients: optional CT at 12 months Multiple nodules size: 6-8 mm * Low risk patients: follow-up at 3-6 months, then consider further follow-up at 18-24 months * high risk patients: follow-up at 3-6 months, then at 18-24 months if no change Multiple nodules size: >8 mm * Low risk patients: follow-up at 3-6 months, then consider further follow-up at 18-24 months * high risk patients: follow-up at 3-6 months, then at 18-24 months if no change Note: newly detected indeterminate nodule in persons 35 years of age or older. * Low risk patients: minimal or absent history of smoking and/or other known risk factors * high risk patients: history of smoking or of other known risk factors (e.g. first degree relative with lung cancer, or exposure to asbestos, radon, uranium) * if a nodule up to 8 mm is partly solid or is ground glass further follow-up is required after 24 months to exclude possible slow growing adenocarcinoma (ESTELA) SUBSOLID NODULES Solitary pure ground-glass nodule * nodule size <6 mm - no CT follow-up required * nodule size >=6 mm - follow-up CT at 6-12 months, then every 2 years until 5 years Solitary part-solid nodule * nodule size <6 mm - no CT follow-up required * nodule size >=6 mm - follow-up CT at 3-6 months. If unchanged, and solid component remains <6 mm, then annual follow-up for 5 years Multiple subsolid nodules * nodule size <6 mm - follow-up CT at 3-6 months, consider further follow-up at 2 and 4 years if stable * nodule size >=6 mm - follow-up CT at 3-6 months, subsequent management based on the most suspicious nodule(s) ACT 112: Positive. There are findings on this exam that require communication between the performing entity and the patient following Patient Test Result Information Act ([place] Act 112) guidelines. Electronically signed by: Abiodun Camilo M.D. 09/09/2022 7:[address] 09/09/22 14:03 CT tib/fib RT wo con CLINICAL HISTORY: r/o fx extension into distal tibia COMPARISON STUDY: Right tibia and fibula radiographs performed earlier today. TECHNIQUE: Axial images of the right tibia and fibula were obtained. Sagittal and coronal reconstructions were viewed. Automated exposure control was utilized for the study. A dose lowering technique was utilized adhering to the principles of ALARA. FINDINGS: Alignment of the right knee is anatomic. There is a small right knee joint effusion. Note is made of an acute oblique mildly displaced fracture of the right fibular neck. Fracture is displaced 4 mm. This is similar to prior radiographs. There is also an acute oblique displaced distal diaphyseal fracture of the right tibia. This fracture is displaced 1.4 cm. In addition, there is an acute nondisplaced fracture of the posterior distal right tibia/posterior malleolus. No ankle mortise widening is identified. There is no distal right fibular fracture. Talar dome is intact. Right lower leg soft tissue swelling is most pronounced at the level of the tibial fracture. There is no soft tissue gas. IMPRESSION: 1. Acute nondisplaced fracture of the posterior malleolus. No distal right fibular fracture. 2. Acute oblique displaced distal diaphyseal fracture of the right tibia. 3. Acute oblique mildly displaced right fibular neck fracture. ACT 112: Negative or not required by law. Electronically signed by: Edmund Steinberg M.D. 09/09/2022 4:11 PM Tibia/Fibula X-Ray 09/10/22 13:00 INTRAOPERATIVE RADIOGRAPHS CLINICAL HISTORY: Internal fixation of the right tibia. Fluoro time: 46 seconds. Exposure: 1.86 mGy FINDINGS: 5 spot fluoroscopic views of the right tibia and fibula are presented. There is a mildly displaced spiral fracture of the fibular neck. An intramedullary nail has been placed transfixing a fracture of the distal tibia. Near anatomic alignment is restored. There are 2 cortical lag screws transfixing the proximal and distal ends of the intramedullary nail. Overlying soft tissue edema is noted. IMPRESSION: Intraoperative images from intramedullary nail fixation of the right tibia as above. Electronically signed by: Tanvir Christensen M.D. 09/10/2022 3:28 PM Ordered Studies 09/09/22 00:55 CT abd pelvis wo con Stat CT cervical spine wo con Stat CT head/brain wo con Stat 09/09/22 01:33 CT chest diagnostic wo con Urgent 09/09/22 14:03 CT tib/fib RT wo con Routine 09/10/22 13:00 FL tibia/fibula RT 2V Routine Hospital Course (1) Tibia/fibula fracture: Patient is a 67 yr male, status post fall and right tibia-fibula fracture. Fall In setting of alcohol intoxication Right displaced distal tibia fracture/proximal fibular fracture due to fall Chronic Multiple healing/healed bilateral rib fractures Chronic anterior wedging at T12 --R leg X ray:Right tibial and fibular fractures as described above. --Lower Extremity CT: Acute nondisplaced fracture of the posterior malleolus. No distal right fibular fracture. Acute oblique displaced distal diaphyseal fracture of the right tibia. Acute oblique mildly displaced right fibular neck fracture. --CT ABD:Multiple healing/healed bilateral rib fractures. No pneumothorax. Moderate anterior wedging at T12 is technically age indeterminate but likely chronic. Emphysema. Left greater than right lower lobe airspace opacities likely representing a pneumonia. This favors an aspiration pneumonia given the bronchial mucoid impaction. Emphysema. No acute traumatic process within the chest, abdomen, or pelvis. A 6 mm nodule within the right middle lobe. Follow-up recommended below. --CT Head:No acute intracranial abnormality. Atrophy and microvascular ischemic changes. --Neck CT:No acute cervical spine fracture or subluxation. -- Chest CT:Multiple healing/healed bilateral rib fractures. No pneumothorax. Moderate anterior wedging at T12 is technically age indeterminate but likely chronic. Emphysema. Left greater than right lower lobe airspace opacities likely representing a pneumonia. This favors an aspiration pneumonia given the bronchial mucoid impaction. Emphysema. No acute traumatic process within the chest, abdomen, or pelvis. A 6 mm nodule within the right middle lobe. Follow-up recommended below. --S/P Right IM Distal Tibia on 09/10/22 by -- Fall precautions --Appreciate Orthopedics Input -- PT OT -- Nonweightbearing right lower extremity --On Lovenox SQ for DVT prophylaxis Needs follow-up with orthopedics upon discharge Unsafe to be discharged home Plan to be discharged to rehab facility today Acute kidney injury Unknown baseline kidney function Cr:3.5>>2.45>1.1 Avoid nephrotoxic agents Bladder scan as needed Received IV fluids Possible sepsis Presented with hypotension, lactic acidosis Possible pneumonia Hypoxia --CT chest as above Blood cultures :No growth to date Aspiration precautions Empirically on Unasyn, doxycycline>> Doxy, Augmentin--completed the course Wean off of supplemental oxygen to keep saturations greater than 88% Saturating well on room air COPD On Albuterol PRN Continues to smoke Alcohol abuse Continue alcohol withdrawal protocol with Librium and Ativan p.r.n. Continue IV thiamine and folic acid Monitor for alcohol withdrawal symptoms. H/O CVA with no residual weakness Continue aspirin, statin. Right middle lobe lung Nodule CT showed 6 mm nodule within the right middle lobe H/O Tobacco use Needs follow up with Pulmonology as outpatient Tobacco abuse: [employer] to quit Nicotine patch H/O Peripheral neuropathy in lower extremities Continue gabapentin. Hypertension. BP low on presentation Continue metoprolol 50 mg BID Hold amlodipine, lisinopril for now Monitor BP GERD continue PPI DVT Px: SCDs Lovenox SQ Code Status Full Code Disposition SNF today Total Time Total Time Spent Total Time Spent (In Minutes): 58 minutes Discharge Plan Discharge Items Patient Disposition: Transfer Correction Fac Reason For Visit: FALL, ANKLE PAIN Discharge Diagnosis: Right displaced distal tibia fracture/proximal fibular fracture Fall Acute kidney injury Alcohol use disorder COPD Right middle lobe lung Nodule Activity: Per Instructions section Weightbearing: Right non-weightbearing Weightbearing Comment: with walker or crutches Non-emergency contact: Primary Care Provider and Surgeon Call non-emergency contact if: you have any medication questions, your symptoms worsen, your pain is concerning for you, your temperature is above 101.5, your wound has increased redness and your wound has increased drainage Follow-up/Referrals: Evans Cage DO [Surgeon] - (Follow up with Dr. Cage or Grady Eastman PA-C in 2 weeks from the day of your surgery for your first pos toperative visit.) PCP,NO [Primary Care Provider] - Diet: Regular Diet Texture: Easy to Chew Handy Attending Provider Instructions: Follow-up with your primary care physician in 1 week upon discharge from rehab facility Follow-up with your orthopedic surgeon Dr. Cage or Grady Eastman PA-C in 2 weeks --- Continue Lovenox SQ for DVT prophylaxis until follow up with your orthopedic surgeon. Further recommendations as per your orthopedic surgeon. Seek immediate medical attention if your symptoms reoccur or worsen Please take all medications as instructed on discharge list below. Please call if you have any questions or problems. You can reach a [facility] hospitalist on duty at [facility] 24 hours a day by calling [phone] [facility] Reference And Instruction Librarian Provider Instructions: ACTIVITY RECOMMENDATIONS: * YOU ARE TO BE NON WEIGHTBEARING ON THE RIGHT FOOT AT THIS TIME. SPECIAL CARE INSTRUCTIONS: * Some drainage onto the dressing is normal and is no cause for alarm. * Some swelling is natural especially after walking. When resting, keep your foot elevated above the level of your heart. * Call the doctor's office at if you notice increased drainage, fever over 101 degrees F. or severe constant pain. BANDAGE: * You can change your dressing on your knee every other day until seen back in the office for your first post operative visit. You can use 4x4 gauze and acewrap. * Keep bandage/cast dry at all times. FOLLOW UP VISIT: If appointment is not already scheduled: Please call [facility] to make a follow-up appointment 10-14 days after your surgery at . Pending Studies at Discharge: No Stand-Alone Forms: My [facility] Skilled Items Patient informed of condition?: Yes DNR: No Discharge Level of Care: Skilled Communicable Disease: No Discharge Prognosis: Stable Lines: None Urinary Catheter: No Medications and DC Order Prescriptions: New polyethylene glycol 3350 [Miralax] 17 gram Powder In Packet 17 g PO DAILY PRN (Reason: constipation) 30 Days Qty: 30 0RF docusate sodium 100 mg Capsule 100 mg PO BID PRN (Reason: Constipation) Qty: 30 0RF enoxaparin [Lovenox] 30 mg/0.3 mL Syringe 30 mg subcut QPM 30 Days Qty: 9 0RF thiamine HCl (vitamin B1) 100 mg Tablet 100 mg PO DAILY Qty: 30 0RF folic acid 1 mg Tablet 1 mg PO DAILY Qty: 30 0RF oxycodone 5 mg Tablet 5 mg PO Q8H PRN (Reason: pain) Qty: 10 0RF multivitamin with folic acid [Daily-Ta (with folic acid)] 400 mcg Tablet 1 tab PO QAM Qty: 30 0RF Continued multivitamin Tablet 1 tab PO DAILY atorvastatin 80 mg Tablet 80 mg PO DAILY lisinopril 20 mg Tablet 20 mg PO BID cyanocobalamin (vitamin B-12) [Vitamin B-12] 1,000 mcg Tablet 1,000 mcg PO DAILY aspirin 81 mg Tablet,Delayed Release (Dr/Ec) 81 mg PO DAILY metoprolol tartrate 50 mg Tablet 50 mg PO BID gabapentin 300 mg Capsule 300 mg PO TID albuterol sulfate 90 mcg/actuation Hfa Aerosol Inhaler 2 puff INHALATION DIRECTED PRN (Reason: Shortness Of Breath) cholecalciferol (vitamin D3) [Vitamin D3] 25 mcg (1,000 unit) Capsule 25 mcg PO DAILY ezetimibe [Zetia] 10 mg Tablet 10 mg PO DAILY omeprazole 20 mg Tablet,Delayed Release (Dr/Ec) 20 mg PO DAILY doxepin 6 mg Tablet 6 mg PO HS PRN (Reason: Sleep) duloxetine 20 mg Capsule, Delayed Rel Sprinkle 20 mg PO DAILY potassium citrate 99 mg Capsule 99 mg PO DAILY Discontinued amlodipine 5 mg Tablet 5 mg PO DAILY Discharge Orders: Discharge Order (Routine); Ordered 09/15/22 Ordered By: Bradford Mak Admission Data Admit Date/Time: 09/09/22 04:09 Attending Provider: Bradford Mak Admit Provider: Noel Cantu Primary Care Provider: PCP,NO Other Providers: [facility] ; [facility] ; Noel Cantu ; Isaac Chi ; John Paul Caballero ; Megan Bermeo ; Shahram Colby ; Arabella Parry ; Ej Perkins ; Bishop Jha ; Suresh Leach ; Marck Samuels ; Bishop Gray ; Mario Wong ; Jt Ashby ; Grady Eastman ; Akhil Fofana ; Arabella Last ; Rocky Izaguirre ; Moe Childers ; Radha Gunter ; Paco Martinez ; Dieter Casarez ; Maricruz Tanner. ; Evans Cage. ; Sindhu King. ; Miguel Angel Montesinos ; Keaton Echavarria. ; [facility] ; [facility],
== END 2022-09-15 13:07 | DRG 853 ==
LOC: ED → 1E 04:09 → 4W 18:04

== ENCOUNTER 2023-06-02 10:31 | Inpatient (IN) ==
[2023-06-02] MEDS ORDERED: SODIUM CHLORIDE 0.9% 1,000 ML IV ONE (11:10)
[2023-06-02 11:20] LABS: Hematocrit (blood only) 41.7 % (42.0-52.0); Hemoglobin 14.5 g/dl (14.0-18.0); Mean Corpuscular Hgb Conc 34.8 g/dL (32.0-36.0); Mean Platelet Volume 10.9 fL (9.4-12.4); Platelet Count 248 K/uL (130-400); RDW Coefficient of Variation 13.1 % (11.5-14.5); RDW Standard Deviation 45.9 fL (36.4-46.3); Red Blood Count 4.39 M/uL (4.70-6.10)
--- NOTE | 2023-06-02 11:29 | Emergency Department Note ---
Impression & Plan Syncope, MANISHA (acute kidney injury), Alcohol intoxication, Alcohol abuse ED Provider Note NAME: LAYNE PABON AGE: 68 SEX: M ARRIVES VIA: Ambulance INFORMANT: Patient ED PROVIDER(S): Devon Hayden MD CHIEF COMPLAINT: Syncope PLAN: Disposition: Admit MEDICAL DECISION MAKING: The patient is a pleasant 68-year-old gentleman with a past medical history of alcohol abuse/dependence, B12 deficiency, COPD, CVA, hypertension who [facility] the patient had a syncopal episode following outpatient lab work and this morning in the setting of his report of fasting since last night but also drinking alcohol up until 8 PM last evening. Patient reports he had his blood work and went outside to smoke a cigarette and then remembers waking in the ambulance. The patient did hit the right side of his forehead. He denies any neck, back, chest or extremity pain. He denies any recent illness including fevers, chills, cough, congestion. He reports his mild wheeze is normal for him as he does smoke. On my evaluation patient is in no acute distress, afebrile\with blood pressure initially 80s/60s low patient alert and oriented and pressure did improve with IV fluid hydration. He does appear intoxicated. He has no focal logic deficits. There are abrasions of his right frontal and parietal scalp without underlying hematoma. EKG without overt acute ischemia. Chest x-ray negative for acute cardiopulmonary process. CT of the head and C-spine were negative for acute abnormalities. WBC, hemoglobin and platelets within normal limits. Chemistry without metabolic acidosis with bicarbonate of 21 creatinine is 2.2 newly impaired compared to prior consistent with acute kidney injury. Potassium 3.3 and electrolytes otherwise without significant abnormality. AST arterial mildly elevated from prior 54 and 55, respectively, nonspecific. Her bilirubin is normal. High- sensitivity troponin 5.9, within normal limits. TSH within normal limits. UA without evidence of infection. Traction was positive for THC and medical alcohol was elevated at 183. Findings reviewed with the patient and he does agree with plan for admission given his episode of syncope in the setting of acute kidney injury. For further characterization of the patient's renal insufficiency CT Abd/pelvis was ordered and is pending. Patient treated with IV fluid hydration with normal saline and patient will provided with banana bag and IV thiamine. AWSS initiated. No overt symptoms of withdrawal at this time. Case was discussed with Nae Garcia, with Malik Bach hospitalist who will evaluate the patient for admission. CT of the abdomen pelvis subsequently negative for acute abnormalities. Triage Nursing notes reviewed and agree them. Prior/external medical records reviewed Vital Signs: reviewed Differential diagnosis: Vasovagal event, dehydration, infection, hypoglycemia, electrolyte abnormalities, cardiac sources, intracerebral event, pulmonary embolism, seizure, toxicologic, neurologic, as well as other pathologies. ER treatment provided: See below. Diagnostics interpreted by me: ECG: Normal sinus rhythm, 68 bpm, no ectopy, no overt ST elevation or depression, QTc 433, QRS 96 Cardiac Monitoring: An order for continuous cardiac monitoring was placed and demonstrated Normal sinus rhythm, 68 bpm, no ectopy Laboratory studies: See below Imaging studies: See below Consultation(s): Nae Garcia, with Nae Bach hospitalist HPI: The patient is a pleasant 68-year-old gentleman with a past medical history of alcohol abuse/dependence, B12 deficiency, COPD, CVA, hypertension who presents to the emergency department [place] [facility] after the patient had a syncopal episode following outpatient lab work and this morning in the setting of his report of fasting since last night but also drinking alcohol up until 8 PM last evening. Patient reports he had his blood work and went outside to smoke a cigarette and then remembers waking in the ambulance. The patient did hit the right side of his forehead. He denies any neck, back, chest or extremity pain. He denies any recent illness including fevers, chills, cough, congestion. He reports his mild wheeze is normal for him as he does smoke. ROS: See above HPI for pertinent positives & negatives. A total of 10 systems reviewed and were otherwise negative. VITALS:See Below PHYSICAL EXAMINATION: GENERAL: Awake, alert, fatigued/intoxicated-appearing, in no distress HENT: Normocephalic, abrasions of his right frontal and parietal scalp without underlying hematoma. Oropharynx with dry MM. EYES: Normal conjunctiva. Sclera non-icteric. NECK: Supple. No nuchal rigidity. FROM. No JVD. RESPIRATORY: Clear to auscultation. CARDIAC: Regular rate, normal rhythm. Extremities warm and well perfused. Pulses equal. ABDOMEN: Soft, non-distended. No tenderness to palpation. No rebound or guarding. No masses. RECTAL: Deferred. MUSCULOSKELETAL: Chest examination reveals no tenderness. The back is symmetrical on inspection without obvious abnormality. There is no CVA tenderness to palpation. No joint edema. LOWER EXTREMITIES: Calves are equal size bilaterally and non-tender. No edema. No discoloration. NEURO: Normal sensorium. No sensory or motor deficits noted. SKIN: No rash or jaundice noted. Devon Hayden MD Past Med/Surg History Medical History Chronic hyponatremia COPD (chronic obstructive pulmonary disease) B12 deficiency Lung nodule HLD (hyperlipidemia) Prediabetes Peripheral neuropathy GERD (gastroesophageal reflux disease) Alcohol abuse Tobacco abuse CVA (cerebral vascular accident) Hypertension Acute renal insufficiency Acute hypotension Surgical History History of myringotomy History of colonoscopy Social History Smoking Status: Current every day smoker Tobacco Type: Cigarettes Second Hand Exposure: No; Do You Dip or Chew Tobacco: No; Tobacco Cessation Education Requested by Patient: No Hx Alcohol Use: Yes Alcohol type: beer and hard liquor Hx Substance Use: Yes Preferred Language: Chadian Communication Ability: Effective 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 Beliefs That Will Affect Care: None Current Living Situation: Alone Other Information That Helps Us Care for You: No Feels Safe at Home: Yes Safety Concerns: Feels Safe At This Time Assistive Devices: Cane and Glasses Allergies Allergies Allergy/AdvReac Type Severity Reaction Status Date / Time No Known Allergies Allergy Verified 09/09/22 00:48 Home Meds Home Medications Medication Instructions Recorded Confirmed albuterol sulfate 90 mcg/actuation 2 puff inhalation DIRECTED PRN 09/09/22 06/02/23 aerosol inhaler Shortness Of Breath aspirin 81 mg tablet,delayed 81 mg PO DAILY 09/09/22 06/02/23 release atorvastatin 80 mg tablet 80 mg PO DAILY 09/09/22 06/02/23 cholecalciferol (vitamin D3) 25 25 mcg PO DAILY 09/09/22 06/02/23 mcg (1,000 unit) capsule (Vitamin D3) cyanocobalamin (vitamin B-12) 1,000 mcg PO DAILY 09/09/22 06/02/23 1,000 mcg tablet (Vitamin B-12) doxepin 6 mg tablet 6 mg PO HS PRN Sleep 09/09/22 06/02/23 ezetimibe 10 mg tablet (Zetia) 10 mg PO DAILY 09/09/22 06/02/23 lisinopril 20 mg tablet 20 mg PO BID 09/09/22 06/02/23 metoprolol tartrate 50 mg tablet 50 mg PO BID 09/09/22 06/02/23 multivitamin 1 tab PO DAILY 09/09/22 06/02/23 omeprazole 20 mg tablet,delayed 20 mg PO DAILY 09/09/22 06/02/23 release Previous Rx's Medication Instructions Recorded docusate sodium 100 mg capsule 100 mg PO BID PRN Constipation #30 09/15/22 caps folic acid 1 mg tablet 1 mg PO DAILY #30 tabs 09/15/22 thiamine HCl (vitamin B1) 100 mg 100 mg PO DAILY #30 tabs 09/15/22 tablet Results & Data (ED) Vital Signs Vital Signs - 24 hr 06/02/23 10:45 06/02/23 10:50 06/02/23 10:58 Temperature 36.6 C Temperature Source Oral Pulse Rate 67 68 64 Pulse Rate from SpO2 Sensor 67 Respiratory Rate 17 16 Blood Pressure 89/64 L Blood Pressure Mean 72 Pulse Oximetry 96 96 Oxygen Delivery Method Room Air Sepsis Recent Fever Within 48 Hours No Sepsis New/Unexplained Change in Mental Status No Sepsis Action Taken by Nursing No Action Required 06/02/23 11:00 06/02/23 11:13 06/02/23 11:13 Temperature Temperature Source Pulse Rate 65 69 Pulse Rate from SpO2 Sensor 66 69 Respiratory Rate 21 18 Blood Pressure 91/66 L Blood Pressure Mean 72 Pulse Oximetry 94 96 Oxygen Delivery Method Sepsis Recent Fever Within 48 Hours Sepsis New/Unexplained Change in Mental Status Sepsis Action Taken by Nursing 06/02/23 11:18 06/02/23 11:18 06/02/23 11:30 Temperature Temperature Source Pulse Rate 69 Pulse Rate from SpO2 Sensor 69 Respiratory Rate 17 Blood Pressure 98/67 L 106/69 Blood Pressure Mean 75 79 Pulse Oximetry 94 Oxygen Delivery Method Sepsis Recent Fever Within 48 Hours Sepsis New/Unexplained Change in Mental Status Sepsis Action Taken by Nursing 06/02/23 11:30 06/02/23 11:40 06/02/23 12:12 Temperature Temperature Source Pulse Rate 67 72 Pulse Rate from SpO2 Sensor 66 Respiratory Rate 12 16 Blood Pressure Blood Pressure Mean Pulse Oximetry 98 96 Oxygen Delivery Method Room Air Sepsis Recent Fever Within 48 Hours Sepsis New/Unexplained Change in Mental Status Sepsis Action Taken by Nursing 06/02/23 12:13 06/02/23 12:30 Temperature Temperature Source Pulse Rate 67 66 Pulse Rate from SpO2 Sensor 67 65 Respiratory Rate 15 16 Blood Pressure 118/64 117/42 L Blood Pressure Mean 82 67 Pulse Oximetry 96 97 Oxygen Delivery Method Sepsis Recent Fever Within 48 Hours Sepsis New/Unexplained Change in Mental Status Sepsis Action Taken by Nursing Laboratory Data Attestation: I reviewed the patient's lab results. 06/02/23 10:59 06/02/23 10:59 Lab Results 06/02/23 Range/Units 10:59 WBC 8.40 (4.8-10.8) K/ul RBC 4.39 L (4.70-6.10) M/uL Hgb 14.5 (14.0-18.0) g/dl Hct 41.7 L (42.0-52.0) % MCV 95.0 (80.0-100.0) fL MCH 33.0 (25.0-34.0) pg MCHC 34.8 (32.0-36.0) g/dL RDW Std Deviation 45.9 (36.4-46.3) fL RDW Coeff of Shayan 13.1 (11.5-14.5) % Plt Count 248 (130-400) K/uL MPV 10.9 (9.4-12.4) fL Immature Gran % (Auto) 0.4 % Neut % (Auto) 35.0 % Lymph % (Auto) 53.1 % Cocke % (Auto) 8.2 % Eos % (Auto) 2.3 % Baso % (Auto) 1.0 % Neut # (Auto) 2.95 (1.40-6.50) K/uL Lymph # (Auto) 4.46 H (1.20-3.40) K/uL Cocke # (Auto) 0.69 H (0.11-0.59) K/uL Eos # (Auto) 0.19 (0.00-0.50) K/uL Baso # (Auto) 0.08 (0.00-0.20) K/uL Immature Gran # (Auto) 0.03 (0.01-0.20) K/uL PT 10.9 (9.0-12.0) Seconds INR 1.0 (0.9-1.1) Sodium 133 L (136-145) mmol/L Potassium 3.3 L (3.5-5.1) mmol/L Chloride 98 (98-107) mmol/L Carbon Dioxide 21 (21-32) mmol/L Anion Gap 14 H (3-11) BUN 37 H (6-23) mg/dl Creatinine 2.27 H (0.6-1.4) mg/dl Est Cr Clr Drug Dosing 33.0 ml/min Est GFR ( Amer) 33.1 ml/min Est GFR (Non-Af Amer) 28.6 ml/min BUN/Creatinine Ratio 16.3 (10-20) Glucose 118 H (70-99(Fasting)) mg/dl Calcium 9.9 (8.6-10.3) mg/dl Phosphorus 3.5 (2.5-4.9) mg/dl Magnesium 2.2 (1.7-2.4) mg/dl Total Bilirubin 0.3 (0.2-1.0) mg/dl AST 54 H (13-39) U/L ALT 55 H (7-52) U/L Alkaline Phosphatase 63 (34-104) U/L Troponin I High Sens 5.9 (0-20) pg/ml Total Protein 7.6 (6.0-8.3) gm/dl Albumin 4.0 (3.4-5.0) gm/dl Globulin 3.6 (2.5-4.0) gm/dl Albumin/Globulin Ratio 1.1 (0.9-2) TSH 2.690 (0.300-4.500) uIu/ml Ethyl Alcohol mg/dL 183.8 H (<10.0) mg/dl Administered Medications Chlordiazepoxide HCl (Chlordiazepoxide Hcl 25 Mg Cap) 25 mg PO Q6H MELL Stop: 06/03/23 11:01 Last Admin: 06/02/23 17:47 Dose: 25 mg Documented By: LOREN Sodium Chloride (Nss) 1,000 mls @ 125 mls/hr IV .Q8H [facility] Stop: 06/03/23 08:06 Last Admin: 06/02/23 17:47 Dose: 125 mls/hr Documented By: LOREN Discontinued Medications Sodium Chloride (Nss) 1,000 mls @ 999 mls/hr IV .Q1H1M ONE Stop: 06/02/23 12:10 Last Infusion: 06/02/23 12:14 Dose: Infused Documented By: Admin: 06/02/23 11:21 Dose: 999 mls/hr Documented By: FERNIE Multivitamins 10 ml/ Thiamine HCl 100 mg/ Folic Acid 1 mg/Sodium Chloride 1,011.2 mls @ 500 mls/hr IV .Q2H2M ONE Stop: 06/02/23 14:54 Last Infusion: 06/02/23 16:46 Dose: Infused Documented By: Admin: 06/02/23 14:09 Dose: 500 mls/hr Documented By: FERNIE Thiamine HCl 200 mg/ Sodium (Chloride) 52 mls @ 210 mls/hr IV NOW STA Stop: 06/02/23 13:07 Last Infusion: 06/02/23 14:30 Dose: Infused Documented By: NRGala Admin: 06/02/23 14:09 Dose: 210 mls/hr Documented By: FERNIE Potassium Chloride (Potassium Chloride Crtab 20 Meq Tabcr) 40 meq PO NOW STA Stop: 06/02/23 16:08 Last Admin: 06/02/23 16:45 Dose: 40 meq Documented By: GUICHO Imaging Data Radiologist's Impression: Cervical Spine CT 06/02/23 11:20 CT OF THE CERVICAL SPINE WITHOUT CONTRAST CLINICAL HISTORY: syncope head strike, etoh COMPARISON STUDY: Cervical spine CT September 09, 2022. TECHNIQUE: Helical axial images of the cervical spine were obtained without IV contrast. Sagittal and coronal reconstructions were viewed. Automated exposure control was utilized for the study. A dose lowering technique was utilized adhering to the principles of ALARA. FINDINGS: Alignment of the cervical spine is anatomic. Vertebral body heights are maintained. No acute cervical spine fracture or subluxation is present. There is no prevertebral edema. Facet joints are intact. Moderate multilevel disc space narrowing, osteophytosis and facet arthrosis is present. Emphysema is noted within visualized portions of the lung apices. As before, the right mastoid air cells are partially opacified. There is also fluid within the right middle ear which was present on prior exam. IMPRESSION: No acute cervical spine fracture or subluxation. ACT 112: Negative or not required by law. Electronically signed by: Edmund Steinberg M.D. 06/02/2023 12:45 PM Chest X-Ray 06/02/23 11:20 XR chest 1V portable CLINICAL HISTORY: sycope TECHNIQUE: Single frontal radiograph of the chest was obtained. Comparison: Comparison is made to chest radiograph 09/09/2022 FINDINGS: No lines and tubes are seen. Calcified aortic knob is seen. Emphysema and mild interstitial thickening again seen. No evidence of pleural effusion or pneumothorax. IMPRESSION: No acute chest disease. ACT 112: Negative or not required by law. Electronically signed by: Isaias Malave M.D. 06/02/2023 11:[address] 06/02/23 11:20 CT OF THE HEAD WITHOUT CONTRAST CLINICAL HISTORY: syncope head strike, etoh COMPARISON STUDY: Head CT September 09, 2022. TECHNIQUE: Helical axial images of the head were obtained without IV contrast. Automated exposure control was utilized for the study. A dose lowering technique was utilized adhering to the principles of ALARA. FINDINGS: No acute intracranial hemorrhage, midline shift or mass effect is present. The ventricular system is unremarkable. The basal cisterns are patent. No extra-axial collections are present. There are no findings to suggest acute dural sinus thrombosis or acute territorial infarct. White matter hypodensities are unchanged. A few old lacunar infarcts are unchanged. The appearance the brain is unchanged. There is no acute calvarial fracture. Right mastoid air cells are opacified. This is unchanged. IMPRESSION: 1. No acute intracranial findings. No change in appearance of the brain. 2. No acute calvarial fracture. ACT 112: Negative or not required by law. Electronically signed by: Edmund Steinberg M.D. 06/02/2023 12:41 PM Abdomen/Pelvis CT 06/02/23 12:54 CT OF THE ABDOMEN AND PELVIS WITHOUT CONTRAST CLINICAL HISTORY: Acute renal failure. Abdominal pain. COMPARISON STUDY: CT of the abdomen and pelvis September 09, 2022. TECHNIQUE: Axial images of the abdomen and pelvis were obtained without IV contrast. Images were reviewed in the axial, sagittal, and coronal planes. Automated exposure control was utilized for the study. A dose lowering technique was utilized adhering to the principles of ALARA. FINDINGS: Emphysema is noted within the lower lungs. A 6 mm right middle lobe nodule is unchanged since prior exam. This is probably benign. There is extensive coronary artery calcification. No pneumatosis, free air or portal venous gas is present. No renal, ureteral or bladder calculi are present. Renal sinus calcifications are vascular in etiology. There is no hydronephrosis. Evaluation of the remainder of the abdomen and pelvis is suboptimal on this unenhanced exam. There is hepatic steatosis. Spleen, adrenal glands and pancreas are unremarkable. There is no evidence for a bowel obstruction. The appendix is normal. There is sigmoid diverticulosis without evidence for acute diverticulitis. Extensive plaque of the abdominal aorta and iliac arteries is noted. The abdominal aorta is ectatic. No lymphadenopathy is present. There are no fluid collections. There is no ascites. Old T12 compression fracture is incidentally noted. No acute fractures are identified. IMPRESSION: 1. No urinary calculi or hydronephrosis. 2. No acute process within the abdomen or pelvis on unenhanced exam. 3. Sigmoid diverticulosis. No evidence for acute diverticulitis. 4. Hepatic steatosis. ACT 112: Negative or not required by law. Electronically signed by: Edmund Steinberg M.D. 06/02/2023 2:13 PM Discharge Plan Visit Data Chief Complaint: Fall Stated Complaint: FALL, ABRASION TO FOREHEAD, CONFUSION ED Provider: Devon Hayden Discharge Problem: Syncope, MANISHA (acute kidney injury), Alcohol intoxication, Alcohol abuse Patient Disposition: Admitted As Inpatient Discharge Instructions Interventions: ED Discharge Assessment Last Done: 06/02/23 16:08 Discharge Problem: Syncope Qualifiers: Syncope type: unspecified Qualified Code(s): R55 - Syncope and collapse Alcohol intoxication Qualifiers: Complication of substance-induced condition: with unspecified complication Q ualified Code(s): F10.929 - Alcohol use, unspecified with intoxication, unspecified
[2023-06-02 11:32] LABS: Prothrombin Time 10.9 Seconds (9.0-12.0)
[2023-06-02 11:39] LABS: Basophils # (auto) 0.08 K/uL (0.00-0.20); Eosinophils # (auto) 0.19 K/uL (0.00-0.50); Eosinophils % (auto) 2.3 %; Immature Granulocytes # (auto) 0.03 K/uL (0.01-0.20); Immature Granulocytes % (auto) 0.4 %; Lymphocytes # (auto) 4.46 K/uL (1.20-3.40); Lymphocytes % (auto) 53.1 %; Monocytes # (auto) 0.69 K/uL (0.11-0.59); Monocytes % (auto) 8.2 %; Neutrophils # (auto) 2.95 K/uL (1.40-6.50)
--- NOTE | 2023-06-02 11:48 | XRay Report ---
XR chest 1V portable CLINICAL HISTORY: sycope TECHNIQUE: Single frontal radiograph of the chest was obtained. Comparison: Comparison is made to chest radiograph 09/09/2022 FINDINGS: No lines and tubes are seen. Calcified aortic knob is seen. Emphysema and mild interstitial thickenin g again seen. No evidence of pleural effusion or pneumothorax. IMPRESSION: No acute chest disease. ACT 112: Negative or not required by law. Electronically signed by: Isaias Malave M.D. 06/02/2023 11:47 AM
[2023-06-02 11:49] LABS: Bilirubin,Total 0.3 mg/dl (0.2-1.0); Calcium 9.9 mg/dl (8.6-10.3); Magnesium 2.2 mg/dl (1.7-2.4); Potassium 3.3 mmol/L (3.5-5.1)
[2023-06-02 11:55] LABS: Albumin Globulin Ratio 1.1 (0.9-2); BUN Creatinine Ratio 16.3 (10-20); Est GFR (African American) 33.1 ml/min; Est GFR (Non-African American) 28.6 ml/min; Globulin 3.6 gm/dl (2.5-4.0); Phosphorus 3.5 mg/dl (2.5-4.9); Total Protein 7.6 gm/dl (6.0-8.3)
[2023-06-02 12:05] LABS: Thyroid Stimulating Hormone 2.69 uIu/ml (0.300-4.500)
--- NOTE | 2023-06-02 12:42 | CT Scan Report ---
CT OF THE HEAD WITHOUT CONTRAST CLINICAL HISTORY: syncope head strike, etoh COMPARISON STUDY: Head CT September 09, 2022. TECHNIQUE: Helical axial images of the head were obtained without IV contrast. Automated exposure con trol was utilized for the study. A dose lowering technique was utilized adhering to the principles o f ALARA. FINDINGS: No acute intracranial hemorrhage, midline shift or mass effect is present. The ventricular system is unremarkable. The basal cisterns are patent. No extra-axial collections are present. There are no findings to suggest acute dural sinus thrombosis or acute territorial infarct. White matter hy podensities are unchanged. A few old lacunar infarcts are unchanged. The appearance the brain is unch anged. There is no acute calvarial fracture. Right mastoid air cells are opacified. This is unchanged . IMPRESSION: 1. No acute intracranial findings. No change in appearance of the brain. 2. No acute calvarial fracture. ACT 112: Negative or not required by law. Electronically signed by: Edmund Steinberg M.D. 06/02/2023 12:41 PM
--- NOTE | 2023-06-02 12:47 | CT Scan Report ---
CT OF THE CERVICAL SPINE WITHOUT CONTRAST CLINICAL HISTORY: syncope head strike, etoh COMPARISON STUDY: Cervical spine CT September 09, 2022. TECHNIQUE: Helical axial images of the cervical spine were obtained without IV contrast. Sagittal a nd coronal reconstructions were viewed. Automated exposure control was utilized for the study. A do se lowering technique was utilized adhering to the principles of ALARA. FINDINGS: Alignment of the cervical spine is anatomic. Vertebral body heights are maintained. No acut e cervical spine fracture or subluxation is present. There is no prevertebral edema. Facet joints are intact. Moderate multilevel disc space narrowing, osteophytosis and facet arthrosis is present. Emp hysema is noted within visualized portions of the lung apices. As before, the right mastoid air cells are partially opacified. There is also fluid within the right middle ear which was present on prior exam. IMPRESSION: No acute cervical spine fracture or subluxation. ACT 112: Negative or not required by law. Electronically signed by: Edmund Steinberg M.D. 06/02/2023 12:45 PM
[2023-06-02] MEDS ORDERED: THIAMINE HCL 200 MG in SODIUM CHLORIDE 0.9% 50 ML IV STA (12:53)
[2023-06-02] MEDS ORDERED: MULTI-VITAMIN INFUSION 10 ML, THIAMINE HCL 100 MG, FOLIC ACID 1 MG in SODIUM CHLORIDE 0... IV ONE (12:53)
--- NOTE | 2023-06-02 13:19 | History & Physical Report ---
Date of Service June 02, 2023 Assessment & Plan (1) Syncope: Plan: Patient is 68 year old male with PMH HTN, HLD, CVA, COPD, neuropathy, prediabetes, chronic hyponatremia, GERD, tobacco use, ETOH use presented to ER after syncopal event today. Patient was fasting for morning labs. Denies any prodromal symptoms. In ER hypotensive with BP 89/64, P: 86. In ER given 1L NSS with BP up to 106/69 CT head: no acute intracranial abnormality CT c-spine: no acute fracture UA, drug screen pending ETOH: 183 EKG sinus rhythm without significant ST changes Syncope may be secondary to orthostatic hypotension Monitor on telemetry for any arrhythmias Obtain orthostatic vitals Carotid doppler Echo Fall precautions CBC, CMP in am (2) Hypotension: Plan: In ER hypotensive with BP 89/64, P: 86. In ER given 1L NSS with BP up to 106/69 Was fasting for labs Hold lisinopril IVF (3) MANISHA (acute kidney injury): Plan: BUN: 37, Cr: 2.27. Cr: 1.0 on 09/23/22 CT Abd/Pelvis: No urinary calculi or hydronephrosis. IVF Hold lisinopril Monitor renal functions If no improvement consider nephrology consult (4) Alcohol abuse: Plan: ETOH: 183 Drinks 6 beers, 1 shot liquor daily Alcohol withdrawal protocol with Librium, Ativan ETOH cessation encouraged (5) Hypokalemia: Plan: K: 3.3. Magnesium: 2.2 Replace and monitor (6) Chronic hyponatremia: Plan: Na: 133 Monitor (7) Elevated LFTs: Plan: T. bili: 0.3, AST: 54 (18 on 09/23/22), ALT: 55 (17 on 09/23/22), Alk Phos: 63 CT abd/pelvis: Hepatic steatosis Recommend ETOH cessation Repeat LFTs in am (8) CVA (cerebral vascular accident): Plan: Continue aspirin, atorvastatin (9) Hypertension: Plan: Presented to ER hypotensive. Improved after IVF Hold lisinopril Continue metoprolol tartrate with holding parameters (10) HLD (hyperlipidemia): Plan: Continue atorvastatin, Zetia (11) Lung nodule: Plan: Known pulmonary nodule Today's imagin mm right middle lobe nodule is unchanged since prior exam. (12) COPD (chronic obstructive pulmonary disease): Plan: Scattered wheezing. No fever/chills, increased cough/SOB/sputum production Continue albuterol as needed Encouraged smoking cessation (13) Tobacco abuse: Plan: Denies nicotine patch (14) GERD (gastroesophageal reflux disease): Plan: Continue PPI (15) Peripheral neuropathy: Plan: Continue duloxetine (16) Prediabetes: Plan: glucose: 118 on today's labs Monitor AM glucose DVT Prophylaxis Heparin SQ Full Code as per discussion with pt Follows with Dr Dhruv Biggs for routine care Pt was seen and care coordinated with Dr Murrell. See addendum History of Present Illness Chief Complaint: Syncope, fall Primary Care Provider: Isaias Biggs MD Patient is 68 year old male with PMH HTN, HLD, CVA, COPD, neuropathy, prediabetes, chronic hyponatremia, GERD, tobacco use, ETOH use presented to ER with c/o syncope. History obtained from patient and outpatient office notes. Patient was seen at [facility] today for routine fasting labs. went outside to smoke a cigarette when had sudden onset of syncope. He states remembers being outside and next thing he remembers is being in hospital. Patient denies any dizziness, N/V, CP, SOB, vision changes prior. Patient did hit his head and has abrasions. Patient did not have morning medications or breakfast today. Last ETOH intake was last night. drinks 6 beers and one shoot liquor daily. feels like he has been in his normal health. Currently states he feels well. Upon ER arrival patient noted to by hypotensive with BP 89/64. Denies fever/chills, diaphoresis, N/V/D/C, MARES, dizziness, vision changes, neck pain, CP, SOB, orthopnea, palpitations, increased cough, sore t hroat, otalgia, rhinorrhea, abdominal pain, paresthesias, extremity weakness, extremity edema, rashes, urinary symptoms. Denies history alcohol withdrawal seizures or DT's. Allergies Allergy/AdvReac Type Severity Reaction Status Date / Time No Known Allergies Allergy Verified 09/09/22 00:48 Home Medications Medication Instructions Recorded Confirmed Type albuterol sulfate 90 mcg/actuation 2 puff inhalation DIRECTED PRN 09/09/22 06/02/23 History aerosol inhaler Shortness Of Breath aspirin 81 mg tablet,delayed 81 mg PO DAILY 09/09/22 06/02/23 History release atorvastatin 80 mg tablet 80 mg PO DAILY 09/09/22 06/02/23 History cholecalciferol (vitamin D3) 25 25 mcg PO DAILY 09/09/22 06/02/23 History mcg (1,000 unit) capsule (Vitamin D3) cyanocobalamin (vitamin B-12) 1,000 mcg PO DAILY 09/09/22 06/02/23 History 1,000 mcg tablet (Vitamin B-12) doxepin 6 mg tablet 6 mg PO HS PRN Sleep 09/09/22 06/02/23 History ezetimibe 10 mg tablet (Zetia) 10 mg PO DAILY 09/09/22 06/02/23 History lisinopril 20 mg tablet 20 mg PO BID 09/09/22 06/02/23 History metoprolol tartrate 50 mg tablet 50 mg PO BID 09/09/22 06/02/23 History multivitamin 1 tab PO DAILY 09/09/22 06/02/23 History omeprazole 20 mg tablet,delayed 20 mg PO DAILY 09/09/22 06/02/23 History release docusate sodium 100 mg capsule 100 mg PO BID PRN Constipation #30 09/15/22 06/02/23 Rx caps folic acid 1 mg tablet 1 mg PO DAILY #30 tabs 09/15/22 06/02/23 Rx thiamine HCl (vitamin B1) 100 mg 100 mg PO DAILY #30 tabs 09/15/22 06/02/23 Rx tablet Past Med/Surg History Medical History Chronic hyponatremia COPD (chronic obstructive pulmonary disease) B12 deficiency Lung nodule HLD (hyperlipidemia) Prediabetes Peripheral neuropathy GERD (gastroesophageal reflux disease) Alcohol abuse Tobacco abuse CVA (cerebral vascular accident) Hypertension Acute renal insufficiency Acute hypotension Surgical History History of myringotomy History of colonoscopy Social History Smoking Status: Current every day smoker Tobacco Type: Cigarettes Hx Alcohol Use: Yes Alcohol type: beer and hard liquor Hx Substance Use: Yes Preferred Language: Dutch Communication Ability: Effective Vacuum Repairer Required: No Beliefs That Will Affect Care: None Current Living Situation: Alone Feels Safe at Home: Yes Assistive Devices: Cane Review of Systems Review of Systems: All systems reviewed & are unremarkable except as noted in HPI & below Physical Exam Physical Exam: General: no distress, WDWN Head: normocephalic, +abrasion ecchymosis right forehead Eyes: PERRL, EOM's intact, conjunctiva non-injected, anicteric ENT: normal inspection external ears, nose, mucous membranes moist Neck: supple, trachea midline Lungs: no respiratory distress,+slight scattered wheezing, no rhonchi/rales CV: RRR, no murmur, no pretibial edema Abd: normal BS, soft, non-tender Ext: no cyanosis, no calf tenderness Neuro: A&O x 3, no focal deficits noted, normal affect Skin: warm, dry Results & Data Results & Data Vital Signs (Past 12 Hours) Vital Signs Temp Pulse Resp BP Pulse Ox O2 Del Method 06/02/23 12:12 72 16 06/02/23 11:40 96 Room Air 06/02/23 11:30 67 12 98 06/02/23 11:30 106/69 06/02/23 11:18 98/67 L 06/02/23 11:18 69 17 94 06/02/23 11:13 69 18 96 06/02/23 11:13 91/66 L 06/02/23 11:00 65 21 94 06/02/23 10:58 64 06/02/23 10:50 36.6 C 68 16 89/64 L 96 Room Air 06/02/23 10:45 67 17 96 Laboratory Results Short CBC 06/02/23 Range/Units 10:59 WBC 8.40 (4.8-10.8) K/ul Hgb 14.5 (14.0-18.0) g/dl Hct 41.7 L (42.0-52.0) % Plt Count 248 (130-400) K/uL BMP 06/02/23 10:59 Sodium 133 L Potassium 3.3 L Chloride 98 Carbon Dioxide 21 BUN 37 H Creatinine 2.27 H Glucose 118 H Calcium 9.9 Liver Function 06/02/23 Range/Units 10:59 Total Bilirubin 0.3 (0.2-1.0) mg/dl AST 54 H (13-39) U/L ALT 55 H (7-52) U/L Alkaline Phosphatase 63 (34-104) U/L Albumin 4.0 (3.4-5.0) gm/dl Diagnostic Findings Cervical Spine CT 06/02/23 11:20 CT OF THE CERVICAL SPINE WITHOUT CONTRAST CLINICAL HISTORY: syncope head strike, etoh COMPARISON STUDY: Cervical spine CT September 09, 2022. TECHNIQUE: Helical axial images of the cervical spine were obtained without IV contrast. Sagittal and coronal reconstructions were viewed. Automated exposure control was utilized for the study. A dose lowering technique was utilized adhering to the principles of ALARA. FINDINGS: Alignment of the cervical spine is anatomic. Vertebral body heights are maintained. No acute cervical spine fracture or subluxation is present. There is no prevertebral edema. Facet joints are intact. Moderate multilevel disc space narrowing, osteophytosis and facet arthrosis is present. Emphysema is noted within visualized portions of the lung apices. As before, the right mastoid air cells are partially opacified. There is also fluid within the right middle ear which was present on prior exam. IMPRESSION: No acute cervical spine fracture or subluxation. ACT 112: Negative or not required by law. Electronically signed by: Edmund Steinberg M.D. 06/02/2023 12:45 PM Chest X-Ray 06/02/23 11:20 XR chest 1V portable CLINICAL HISTORY: sycope TECHNIQUE: Single frontal radiograph of the chest was obtained. Comparison: Comparison is made to chest radiograph 09/09/2022 FINDINGS: No lines and tubes are seen. Calcified aortic knob is seen. Emphysema and mild interstitial thickening again seen. No evidence of pleural effusion or pneumothorax. IMPRESSION: No acute chest disease. ACT 112: Negative or not required by law. Electronically signed by: Isaias Malave M.D. 06/02/2023 11:[address] 06/02/23 11:20 CT OF THE HEAD WITHOUT CONTRAST CLINICAL HISTORY: syncope head strike, etoh COMPARISON STUDY: Head CT September 09, 2022. TECHNIQUE: Helical axial images of the head were obtained without IV contrast. Automated exposure control was utilized for the study. A dose lowering technique was utilized adhering to the principles of ALARA. FINDINGS: No acute intracranial hemorrhage, midline shift or mass effect is present. The ventricular system is unremarkable. The basal cisterns are patent. No extra-axial collections are present. There are no findings to suggest acute dural sinus thrombosis or acute territorial infarct. White matter hypodensities are unchanged. A few old lacunar infarcts are unchanged. The appearance the brain is unchanged. There is no acute calvarial fracture. Right mastoid air cells are opacified. This is unchanged. IMPRESSION: 1. No acute intracranial findings. No change in appearance of the brain. 2. No acute calvarial fracture. ACT 112: Negative or not required by law. Electronically signed by: Edmund Steinberg M.D. 06/02/2023 12:41 PM Abdomen/Pelvis CT 06/02/23 12:54 CT OF THE ABDOMEN AND PELVIS WITHOUT CONTRAST CLINICAL HISTORY: Acute renal failure. Abdominal pain. COMPARISON STUDY: CT of the abdomen and pelvis September 09, 2022. TECHNIQUE: Axial images of the abdomen and pelvis were obtained without IV contrast. Images were reviewed in the axial, sagittal, and coronal planes. Automated exposure control was utilized for the study. A dose lowering technique was utilized adhering to the principles of ALARA. FINDINGS: Emphysema is noted within the lower lungs. A 6 mm right middle lobe nodule is unchanged since prior exam. This is probably benign. There is extensive coronary artery calcification. No pneumatosis, free air or portal venous gas is present. No renal, ureteral or bladder calculi are present. Renal sinus calcifications are vascular in etiology. There is no hydronephrosis. Evaluation of the remainder of the abdomen and pelvis is suboptimal on this unenhanced exam. There is hepatic steatosis. Spleen, adrenal glands and pancreas are unremarkable. There is no evidence for a bowel obstruction. The appendix is normal. There is sigmoid diverticulosis without evidence for acute diverticulitis. Extensive plaque of the abdominal aorta and iliac arteries is noted. The abdominal aorta is ectatic. No lymphadenopathy is present. There are no fluid collections. There is no ascites. Old T12 compression fracture is incidentally noted. No acute fractures are identified. IMPRESSION: 1. No urinary calculi or hydronephrosis. 2. No acute process within the abdomen or pelvis on unenhanced exam. 3. Sigmoid diverticulosis. No evidence for acute diverticulitis. 4. Hepatic steatosis. ACT 112: Negative or not required by law. Electronically signed by: Edmund Steinberg M.D. 06/02/2023 2:13 PM ECG Additional Comments: sinus rhythm, rate 68. appears similar to ekg on 09/09/22 per my interpretation Supervising Physician Co-Signing Physician Notes I have seen and discussed the case with the collaborating RADHA. I agree with the above H&P. I have reviewed and confirmed the patients medical history, the findings on physical examination, and the patients diagnosis and treatment plan with Balta GARCIA and agree with the information documented. In short, Mr. Fernandez is a 68 year old gentleman with history of prior CVA, HTN, HLD, DM who presented to ED via EMS after syncopal episode. Upon arrival to ED, patient was noted to have systolics in 80s which responded robustly to IVF. CT i maging of head revealed old strokes, but no acute process 2/2 fall with blunt trauma; CT abdomen/pelvis revealed signs of emphysema, extensive coronary artery calcifications and renal artery calcification, hepatic steatosis, diverticulosis, but no other acute process. Labs with mild transaminities, MANISHA, and hyponatremia/hypokalemia. Patient states he fasted this am and obtained his labs. He has been in usual state of health. He denied any prodromal symptoms--stating he stood up with ease from blood draw, walked to smoke outside and after lighting his cigarette--he recalls nothing else until he awoke in the ED. He did not take his medications this am. He smokes 1 ppd. He drinks daily, but did not drink this morning. PE notable for abrasion on right side of forehead/holiness without large hematoma/swelling, small eccyhmosis under right eye. Neuro exam CNII-XII intact and no focal deficits. CV with RRR and no murmur. No carotid bruit appreciated. No edema or other abnormalities noted on exam. Plan #Syncope #LOC with blunt trauma to head -Concern for orthostatic episode, however, given extensive ASVD on imaging and lack of prodromal symptoms, warrants carotid duplex and echo to rule out other etiology of event -monitor on tele overnight -ECHO and carotids -Orthostats -Hold BP meds Rest of plan as above
--- NOTE | 2023-06-02 14:14 | CT Scan Report ---
CT OF THE ABDOMEN AND PELVIS WITHOUT CONTRAST CLINICAL HISTORY: Acute renal failure. Abdominal pain. COMPARISON STUDY: CT of the abdomen and pelvis September 09, 2022. TECHNIQUE: Axial images of the abdomen and pelvis were obtained without IV contrast. Images were revi ewed in the axial, sagittal, and coronal planes. Automated exposure control was utilized for the suman dy. A dose lowering technique was utilized adhering to the principles of ALARA. FINDINGS: Emphysema is noted within the lower lungs. A 6 mm right middle lobe nodule is unchanged sin ce prior exam. This is probably benign. There is extensive coronary artery calcification. No pneumato sis, free air or portal venous gas is present. No renal, ureteral or bladder calculi are present. Perry al sinus calcifications are vascular in etiology. There is no hydronephrosis. Evaluation of the remai nder of the abdomen and pelvis is suboptimal on this unenhanced exam. There is hepatic steatosis. Spl een, adrenal glands and pancreas are unremarkable. There is no evidence for a bowel obstruction. The appendix is normal. There is sigmoid diverticulosis without evidence for acute diverticulitis. Extens kia plaque of the abdominal aorta and iliac arteries is noted. The abdominal aorta is ectatic. No lym phadenopathy is present. There are no fluid collections. There is no ascites. Old T12 compression fra cture is incidentally noted. No acute fractures are identified. IMPRESSION: 1. No urinary calculi or hydronephrosis. 2. No acute process within the abdomen or pelvis on unenhanced exam. 3. Sigmoid diverticulosis. No evidence for acute diverticulitis. 4. Hepatic steatosis. ACT 112: Negative or not required by law. Electronically signed by: Edmund Steinberg M.D. 06/02/2023 2:13 PM
[2023-06-02 14:51] LABS: Appearance Urine Clear (Clear); Bilirubin Urine Negative (Negative); Blood Urine Negative (Negative); Color Urine Yellow; Glucose Urine UA Negative (Negative); Ketones Urine Negative (Negative); Leukocyte Esterase Urine Negative (Negative); Nitrite Urine Negative (Negative); Protein Urine Negative (Negative); Urobilinogen Urine Negative (Negative); pH Urine 5.5 (4.5-7.5)
[2023-06-02 15:15] LABS: Amphetamines+Metham, Urine Neg (Neg); Barbiturates, Urine Neg (Neg); Benzodiazepine, Urine Neg (Neg); Cocaine, Urine Neg (Neg); MDMA (Ecstacy), Urine Neg (Neg); Methadone, Urine Neg (Neg); Opiate, Urine Neg (Neg); Phencyclidine, Urine Neg (Neg)
--- NOTE | 2023-06-02 15:39 | Electrocardiogram Report ---
Test Reason : Blood Pressure : / mmHG Vent. Rate : 068 BPM Atrial Rate : 068 BPM P-R Int : 166 ms QRS Dur : 096 ms QT Int : 408 ms P-R-T Axes : 000 -14 -01 degrees QTc Int : 433 ms Normal sinus rhythm Normal ECG When compared with ECG of 09-SEP-2022 00:38, No significant change was found Confirmed by Cornelius Burkett ([id number]) on 06/02/2023 3:38:52 PM Referred By: REFERRED SELF Confirmed By:Cornelius Burkett
[2023-06-02] MEDS ORDERED: POTASSIUM CHLORIDE CRTAB 20 MEQ TABCR PO STA (16:07)
[2023-06-02] MEDS ORDERED: ACETAMINOPHEN 325 MG TAB PO PRN (16:07)
[2023-06-02] MEDS ORDERED: POLYETHYLENE (MIRALAX) 17 GM PACK PO PRN (16:07)
[2023-06-02] MEDS ORDERED: LORazepam 1 MG in SYRINGE 0.5 ML IV PRN (16:07)
[2023-06-02] MEDS ORDERED: chlordiazePOXIDE ALCOHOL WITHDRAWL 25MG PO STA (16:07)
[2023-06-02] MEDS ORDERED: ALBUTEROL HFA 8 GM INHALER INH PRN (16:07)
[2023-06-02] MEDS ORDERED: ONDANSETRON INJ 2 MG/ML 2 ML VIAL IV PRN (16:07)
[2023-06-02] MEDS: chlordiazePOXIDE HCl 25 MG CAP PO SCH ×2 (17:47→22:02)
[2023-06-02] MEDS: SODIUM CHLORIDE 0.9% 1,000 ML IV SCH (17:47)
[2023-06-02] MEDS: METOPROLOL TARTRATE 50 MG TAB PO SCH (21:58)
[2023-06-02] MEDS: HEPARIN SOD 5,000 UNIT/0.5 ML VIAL SQ SCH (21:58)
[2023-06-03] MEDS: SODIUM CHLORIDE 0.9% 1,000 ML IV SCH (02:27)
[2023-06-03] MEDS: chlordiazePOXIDE HCl 25 MG CAP PO SCH ×3 (04:02→19:16)
--- NOTE | 2023-06-03 05:13 | Ultrasound Report ---
Exam(s): US CAROTID EXAM: US Duplex Bilateral Extracranial Arteries CLINICAL HISTORY: Reason for exam: syncope. TECHNIQUE: Real-time duplex ultrasound scan of the extracranial arteries integrating B-mode two-dimensional vascular structure, Doppler spectral analysis and color flow Doppler imaging. COMPARISON: No relevant prior studies available. FINDINGS: Right common carotid artery: Unremarkable. No occlusion or significant stenosis on color flow and spectral Doppler imaging. Right internal carotid artery: Atherosclerotic plaque in the proximal right ICA/carotid bifurcation. No occlusion or significant stenosis on color flow and spectral Doppler imaging. Right external carotid artery: Increased PSV of 125 cm/s in the proximal right ECA. No occlusion or significant stenosis on color flow and spectral Doppler imaging. Right vertebral artery: Unremarkable. Antegrade flow. Right ICA/CCA ratio: Unremarkable. Within normal limits. Left common carotid artery: Unremarkable. No occlusion or significant stenosis on color flow and spectral Doppler imaging. Left internal carotid artery: Increased PSV of 129 cm/s in the proximal left ICA. Atherosclerotic plaque within the proximal left ICA/carotid bifurcation. No occlusion or significant stenosis on color flow and spectral Doppler imaging. Left external carotid artery: Increased PSV of 136 cm/s in the proximal left ECA. No occlusion or significant stenosis on color flow and spectral Doppler imaging. Left vertebral artery: Unremarkable. Antegrade flow. Left ICA/CCA ratio: Unremarkable. Within normal limits. Lymph nodes: Unremarkable. No lymphadenopathy. CAROTID STENOSIS REFERENCE USING SRU CRITERIA: Mild - <50% stenosis. ICA PSV is less than 125 cm/second and plaque or intimal thickening is visible. Moderate - 50-69% stenosis. ICA PSV is 125 to 230 cm/second and plaque is visible. Severe - 70-94% stenosis. ICA PSV is more than 230 cm/second and visible plaque with lumen narrowing is seen. Near occlusion - 95-99% stenosis. ICA PSV is variable and significant plaque with luminal narrowing is seen. Occluded - 100% stenosis. No flow identified. IMPRESSION: Moderate (50-69%) stenosis in the proximal left ICA and bilateral ECAs secondary to atherosclerotic plaque. Electronically signed by: Jesus Cristobal M.D. 06/03/23 05:12 AM
[2023-06-03 06:36] LABS: Hematocrit (blood only) 38.5 % (42.0-52.0); Hemoglobin 13.4 g/dl (14.0-18.0); Mean Corpuscular Hgb Conc 34.8 g/dL (32.0-36.0); Mean Corpuscular Volume 94.8 fL (80.0-100.0); Mean Platelet Volume 10.8 fL (9.4-12.4); Platelet Count 227 K/uL (130-400); RDW Coefficient of Variation 13.1 % (11.5-14.5); RDW Standard Deviation 45.9 fL (36.4-46.3); Red Blood Count 4.06 M/uL (4.70-6.10); White Blood Count 8.22 K/ul (4.8-10.8)
[2023-06-03 07:00] LABS: Albumin Globulin Ratio 1.1 (0.9-2); Albumin Level 3.6 gm/dl (3.4-5.0); BUN Creatinine Ratio 20.8 (10-20); Bilirubin,Total 0.4 mg/dl (0.2-1.0); Creatinine Clr Calc Pharmacy 59.6 ml/min; Est GFR (African American) 68.1 ml/min; Est GFR (Non-African American) 58.8 ml/min; Globulin 3.3 gm/dl (2.5-4.0); Magnesium 1.5 mg/dl (1.7-2.4); Phosphorus 1.8 mg/dl (2.5-4.9); Total Protein 6.9 gm/dl (6.0-8.3)
[2023-06-03] MEDS ORDERED: POTASSIUM PHOS 3 MMOL/1 ML INFUSION IV STA (07:54)
[2023-06-03] MEDS ORDERED: POTASSIUM PHOSPHATE 24 MMOL in SODIUM CHLORIDE 0.9% 500 ML IV ONE (08:00)
[2023-06-03] MEDS: THIAMINE HCL 100 MG TAB PO SCH (08:16)
[2023-06-03] MEDS: MAGNESIUM SULFATE / D5W 1 GM/100 ML BAG IV SCH ×2 (08:16→09:44)
[2023-06-03] MEDS: MULTIVITAMIN TAB PO SCH (08:16)
[2023-06-03] MEDS: METOPROLOL TARTRATE 50 MG TAB PO SCH ×2 (08:16→20:38)
[2023-06-03] MEDS: HEPARIN SOD 5,000 UNIT/0.5 ML VIAL SQ SCH ×2 (08:16→20:38)
[2023-06-03] MEDS: CYANOCOBALAMIN (B-12) 500 MCG TABLET PO SCH (08:16)
[2023-06-03] MEDS: FOLIC ACID 1 MG TAB PO SCH (08:17)
[2023-06-03] MEDS: ATORVASTATIN 40 MG TAB PO SCH (08:17)
[2023-06-03] MEDS: EZETIMIBE 10 MG TAB PO SCH (08:17)
[2023-06-03] MEDS: ASPIRIN 81 MG ECTAB PO SCH (08:17)
[2023-06-03] MEDS: PANTOprazole 40 MG TAB PO SCH (09:04)
--- NOTE | 2023-06-03 15:41 | Hospitalist Progress Note ---
Date of Service June 03, 2023 Assessment & Plan (1) Elevated LFTs: (2) Chronic hyponatremia: (3) Hypokalemia: (4) MANISHA (acute kidney injury): (5) Hypotension: (6) Syncope: (7) COPD (chronic obstructive pulmonary disease): (8) Lung nodule: (9) Peripheral neuropathy: (10) Alcohol abuse: (11) CVA (cerebral vascular accident): (12) Carotid artery stenosis: Plan Patient is 68 year old male with PMH HTN, HLD, CVA, COPD, neuropathy, prediabetes, chronic hyponatremia, GERD, tobacco use, ETOH use admitted after a syncopal episode. Syncope Carotid artery stenosis In ER hypotensive with BP 89/64, given 1L NSS with BP up to 106/69 CT head: no acute intracranial abnormality CT c-spine: no acute fracture Carotid doppler with noted Moderate (50-69%) stenosis in the proximal left ICA and bilateral ECAs secondary to atherosclerotic plaque. Vascular surgery consult placed. UA unremarkable Tox drug screen positive for THC- notes he uses medical marijuana ETOH level elevated at 183 EKG sinus rhythm without significant ST changes Syncope may be secondary to orthostatic hypotension Monitor on telemetry for any arrhythmias Fall precautions Carotid artery Stenosis Pt with syncopal episode, Hx of strokes in the past per chart review As noted above, Carotid doppler with noted moderate (50-69%) stenosis in the proximal left ICA and bilateral ECAs secondary to atherosclerotic plaque. CT head: no acute intracranial abnormality Neck CTA and MRI brain ordered and pending Vascular surgery consult placed. Continue statin and aspirin Wheezing Pt with significant scattered wheezing on exam Chest xray notes emphysema, has COPD diagnosis Notes non compliance with home inhalers and has been having SOB with ambulation Currently 93% on RA Scheduled nebulizer treatments ordered for diffuse wheezing Continue to monitor Hypotension In ER hypotensive with BP 89/64, P: 86. In ER given 1L NSS with BP up to 106/69 Was fasting for labs Hold lisinopril, continue metoprolol with hold parameters Received IVF- currently discontinued MANISHA (acute kidney injury) Cr: 2.27 on admission, Cr: 1.0 on 09/23/22 CT Abd/Pelvis: No urinary calculi or hydronephrosis. IVF Hold lisinopril Currently wnl Alcohol abuse ETOH level 183 on admission Drinks 6 beers, 1 shot liquor daily Alcohol withdrawal protocol with Librium, Ativan ETOH cessation encouraged Electrolyte Derangements Hypokalemia Chronic hyponatremia Hypomagnesemia Hypophosphatemia -replete and correct as needed Elevated LFTs T. bili: 0.3, AST: 54 (18 on 09/23/22), ALT: 55 (17 on 09/23/22), Alk Phos: 63 CT abd/pelvis: Hepatic steatosis Recommend ETOH cessation Continue to trend and monitor CVA (cerebral vascular accident) Continue aspirin, atorvastatin HLD (hyperlipidemia) Continue atorvastatin, Zetia Lung nodule Known pulmonary nodule Imaging on admission: 6 mm right middle lobe nodule is unchanged since prior exam. COPD (chronic obstructive pulmonary disease) Scattered wheezing. No fever/chills, increased cough/SOB/sputum production Continue albuterol as needed Encouraged smoking cessation Tobacco abuse Declines nicotine patch GERD (gastroesophageal reflux disease): Continue PPI Peripheral neuropathy Continue duloxetine Prediabetes Stable DVT Prophylaxis: Heparin SQ Diet: HH CODE STATUS: Full code Dispo: PT/OT ordered Admission and Anticipated Discharge Date Admission Date: June 02, 2023 Subjective Pt seen in the AM, partner at bedside. No acute events noted overnight. States that he is feeling better, denies any further syncopal episodes. Notes that he has some trouble breathing when he is up and ambulating. Smoker, notes that he has an inhaler at home but does not use it. Review of Systems Review of Systems: All systems reviewed & are unremarkable except as noted in Subjective Physical Exam Physical Exam: General: Alert, oriented. No acute distress Skin: bruising noted on face, around right eye Psych: Appropriate mood and affect Neuro: No gross deficits HEENT: right eye ecchymotic CV: RRR Resp: Wheezing noted bilaterally Abdomen. Soft, nontender, nondistended. Results & Data Results & Data Vital Signs (Past 12 Hours) Vital Signs Temp Pulse Pulse Resp BP Pulse Ox O2 Del Method 06/03/23 15:32 71 06/03/23 15:12 36.7 C 75 18 135/81 93 Room Air 06/03/23 08:00 80 06/03/23 08:00 Room Air 06/03/23 07:35 36.5 C 78 18 159/97 H 97 Room Air (6) Syncope Syncope type: unspecified Qualified Code(s): R55 - Syncope and collapse
[2023-06-03] MEDS: POT PHOSPHATE MONOBASIC W/ SOD TAB PO SCH ×2 (17:29→20:37)
[2023-06-03] MEDS ORDERED: OPTIRAY 320 125ml IV ONE (19:29)
[2023-06-03] MEDS: ALBUT/IPRATROP 3MG/0.5MG NEB 3 ML VIAL NEB SCH ×2 (19:37→22:29)
[2023-06-03] MEDS ORDERED: GADOBUTROL 65ML VIAL IV ONE (20:18)
[2023-06-03] MEDS: MAGNESIUM OXIDE 400 MG TAB PO SCH (20:37)
--- NOTE | 2023-06-03 21:29 | CT Scan Report ---
Exam(s): CTA NECK With Contrast IV Amt: 119 ml optiray 320 EXAM: CT Angiography Neck With Intravenous Contrast CLINICAL HISTORY: Syncope. TECHNIQUE: Routine carotid CT angiography protocol was performed with intravenous contrast. NASCET criteria using the distal ICAs for comparison were used for evaluation of stenoses. CTDI is 22.84 mGy and DLP is 409.12 mGy-cm. Automated exposure control was utilized for the study. A dose lowering technique was utilized adhering to the principles of ALARA. MIP reconstructed images were created and reviewed. CONTRAST: Patient received 119 ml optiray 320 of IV contrast COMPARISON: Carotid ultrasound 06/03/2023 FINDINGS: VASCULATURE: Right common carotid artery: There is mild atherosclerosis of the right common carotid artery without significant stenosis. No dissection. Right internal carotid artery: Moderate atherosclerosis of the right carotid bulb is noted without significant stenosis. Mild atherosclerosis of the intracranial portions of the right internal carotid artery without significant stenosis. There is mild atherosclerosis of the proximal right ICA without significant stenosis. No dissection. Right external carotid artery: Unremarkable. No occlusion. Right vertebral artery: Minimal atherosclerosis of the right vertebral artery without significant stenosis. No dissection. Left common carotid artery: There is moderate atherosclerosis of the left common carotid artery without significant stenosis. No dissection. Left internal carotid artery: Atherosclerosis of the proximal left internal carotid artery results in a stenotic portion measuring 2.8 mm compared to a more distal nonstenotic portion measuring 3.4 mm. This results in 20% stenosis by NASCET criteria. Mild atherosclerosis of the intracranial portion of the left internal carotid artery without significant stenosis. There is mild atherosclerosis of the left carotid bulb without significant stenosis. No dissection. Left external carotid artery: Unremarkable. No occlusion. Left vertebral artery: Minimal atherosclerosis of the left vertebral artery without significant stenosis. No dissection. NECK: Bones/joints: Unremarkable. No acute fracture. Soft tissues: Unremarkable. Lung apices: Emphysema. CAROTID STENOSIS REFERENCE USING NASCET CRITERIA: % ICA stenosis = (1 - narrowest ICA diameter/diameter of distal cervical ICA) x 100. Mild - <50% stenosis. Moderate - 50-69% stenosis. Severe - 70-94% stenosis. Near occlusion - 95-99% stenosis. Occluded - 100% stenosis. IMPRESSION: 1. No acute finding of the arteries of the neck. 2. Emphysema. Electronically signed by: Kyleigh Khanna MD 06/03/23 21:28 PM
--- NOTE | 2023-06-03 21:52 | Magnetic Resonance Report ---
Exam(s): MRI HEAD W/WO Contrast IV Amt: 8.5ml gadavist EXAM: MR Head Without and With Intravenous Contrast CLINICAL HISTORY: Syncope. TECHNIQUE: Magnetic resonance images of the head/brain without and with intravenous contrast in multiple planes. CONTRAST: Patient received 8.5ml Gadavist of IV contrast COMPARISON: CT head 06/02/2023 FINDINGS: Brain: No acute infarct. No intracranial hemorrhage, mass-effect or midline shift. Mild periventricular white matter T2/flair signal abnormalities are most consistent with chronic microangiopathy. No abnormal enhancement. Ventricles: Unremarkable. No ventriculomegaly. Bones/joints: Unremarkable. No acute fracture. Sinuses: Mild mucosal thickening of the visualized paranasal sinuses. No acute sinusitis. Mastoid air cells: Small right mastoid effusion. Orbits: Unremarkable as visualized. IMPRESSION: No acute findings in the head/brain. Electronically signed by: Kyleigh Khanna MD 06/03/23 21:52 PM
[2023-06-04] MEDS: ALBUT/IPRATROP 3MG/0.5MG NEB 3 ML VIAL NEB SCH ×3 (02:17→11:02)
[2023-06-04] MEDS: chlordiazePOXIDE HCl 25 MG CAP PO SCH ×2 (03:10→09:56)
[2023-06-04 06:15] LABS: Basophils % (auto) 1.5 %; Eosinophils # (auto) 0.28 K/uL (0.00-0.50); Eosinophils % (auto) 4.2 %; Hematocrit (blood only) 39.5 % (42.0-52.0); Hemoglobin 13.7 g/dl (14.0-18.0); Immature Granulocytes # (auto) 0.02 K/uL (0.01-0.20); Immature Granulocytes % (auto) 0.3 %; Lymphocytes # (auto) 2.91 K/uL (1.20-3.40); Lymphocytes % (auto) 43.3 %; Mean Corpuscular Hemoglobin 33.2 pg (25.0-34.0); Mean Corpuscular Hgb Conc 34.7 g/dL (32.0-36.0); Mean Corpuscular Volume 95.6 fL (80.0-100.0); Mean Platelet Volume 10.7 fL (9.4-12.4); Monocytes # (auto) 0.79 K/uL (0.11-0.59); Monocytes % (auto) 11.8 %; Neutrophils # (auto) 2.62 K/uL (1.40-6.50); Neutrophils % (auto) 38.9 %; Platelet Count 243 K/uL (130-400); RDW Standard Deviation 45.8 fL (36.4-46.3); Red Blood Count 4.13 M/uL (4.70-6.10); White Blood Count 6.72 K/ul (4.8-10.8)
[2023-06-04 06:25] LABS: Albumin Globulin Ratio 1.1 (0.9-2); Albumin Level 3.6 gm/dl (3.4-5.0); BUN Creatinine Ratio 16.5 (10-20); Bilirubin,Total 0.3 mg/dl (0.2-1.0); Calcium 9.4 mg/dl (8.6-10.3); Creatinine Clr Calc Pharmacy 58.3 ml/min; Est GFR (African American) 66.8 ml/min; Est GFR (Non-African American) 57.7 ml/min; Globulin 3.4 gm/dl (2.5-4.0); Magnesium 1.7 mg/dl (1.7-2.4); Phosphorus 3.3 mg/dl (2.5-4.9); Potassium 4.2 mmol/L (3.5-5.1)
[2023-06-04 07:42] LABS: Estimated Average Glucose 131 mg/dl; Hemoglobin A1C 6.2 % (4.5-5.6)
--- NOTE | 2023-06-04 09:09 | Consultation ---
Date of Consultation June 04, 2023 Assessment & Plan (1) Carotid artery stenosis: Pt has no significant carotid stenosis by CTA. Does not require vascular surgical intervention or surveillance. Pt aware. Please call if needed. History of Present Illness Reason for Consultation: carotid stenosis Attending Physician: Roxana Barkley MD History of Present Illness 68 yo m with multiple medical problems, including HTN, COPD, hyperlipidemia, prediabetes, ETOH abuse, GERD, peripheral neuropathy, and CVA, admitted after a syncopal episode, seen in consultation today for carotid stenosis. Pt denies any prior knowledge of this. States he [facility] to [facility] to have fasting bloodwork drawn and walked outside after to have a cigarette and apparently passed out. Woke up in the ambulance. Denies prior similar episodes. Has hx of 3 CVA in past, last one about 12 yr ago, prior ones were silent. Denies MARES, fever, chest pain, palpitations, SOB, abd pain, N/V, rest pain, claudication, amaurosis, unilateral extremity weakness or numbness, facial droop, slurred speech, other complaints. Carotid US demonstrated mildly elevated velocities indicating approx 50-60% stenosis. CTA neck demonstrates no significant carotid stenosis. Allergies Allergy/AdvReac Type Severity Reaction Status Date / Time No Known Allergies Allergy Verified 09/09/22 00:48 Home Medications Medication Instructions Recorded Confirmed Type albuterol sulfate 90 mcg/actuation 2 puff inhalation DIRECTED PRN 09/09/22 06/02/23 History aerosol inhaler Shortness Of Breath aspirin 81 mg tablet,delayed 81 mg PO DAILY 09/09/22 06/02/23 History release atorvastatin 80 mg tablet 80 mg PO DAILY 09/09/22 06/02/23 History cholecalciferol (vitamin D3) 25 25 mcg PO DAILY 09/09/22 06/02/23 History mcg (1,000 unit) capsule (Vitamin D3) cyanocobalamin (vitamin B-12) 1,000 mcg PO DAILY 09/09/22 06/02/23 History 1,000 mcg tablet (Vitamin B-12) doxepin 6 mg tablet 6 mg PO HS PRN Sleep 09/09/22 06/02/23 History ezetimibe 10 mg tablet (Zetia) 10 mg PO DAILY 09/09/22 06/02/23 History lisinopril 20 mg tablet 20 mg PO BID 09/09/22 06/02/23 History metoprolol tartrate 50 mg tablet 50 mg PO BID 09/09/22 06/02/23 History multivitamin 1 tab PO DAILY 09/09/22 06/02/23 History omeprazole 20 mg tablet,delayed 20 mg PO DAILY 09/09/22 06/02/23 History release docusate sodium 100 mg capsule 100 mg PO BID PRN Constipation #30 09/15/22 06/02/23 Rx caps folic acid 1 mg tablet 1 mg PO DAILY #30 tabs 09/15/22 06/02/23 Rx thiamine HCl (vitamin B1) 100 mg 100 mg PO DAILY #30 tabs 09/15/22 06/02/23 Rx tablet Patient History Medical History Chronic hyponatremia COPD (chronic obstructive pulmonary disease) B12 deficiency Lung nodule HLD (hyperlipidemia) Prediabetes Peripheral neuropathy GERD (gastroesophageal reflux disease) Alcohol abuse Tobacco abuse CVA (cerebral vascular accident) Hypertension Acute renal insufficiency Acute hypotension Surgical History History of myringotomy History of colonoscopy Social History Smoking Status: Current every day smoker Tobacco Type: Cigarettes Second Hand Exposure: No; Do You Dip or Chew Tobacco: No; Tobacco Cessation Education Requested by Patient: No Hx Alcohol Use: Yes Alcohol type: beer and hard liquor Hx Substance Use: Yes Preferred Language: Irish Communication Ability: Effective 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 Beliefs That Will Affect Care: None Current Living Situation: Alone Other Information That Helps Us Care for You: No Feels Safe at Home: Yes Safety Concerns: Feels Safe At This Time Assistive Devices: Cane Review of Systems Review of Systems: All systems reviewed & are unremarkable except as noted in HPI & below Physical Exam Constitutional: WD/WN, vitals as above cooperative and comfortable; not in distress ENMT: Ears: no hearing impairment Neck: trachea midline Respiratory: normal respiratory effort, lungs clear to auscultation Auscultation: + diminished lung sounds Cardiovascular: Rate/Rhythm: regular rate and regular rhythm Vessels: femoral pulses present, posterior tibial pulses present, dorsalis pedis pulses present and radial pulses present; + abnormal peripheral pulses Extremities: normal capillary refill; no edema Gastrointestinal (Abdomen): Inspection/Auscultation: abdomen normal to inspection and normal bowel sounds Percussion/Palpation: abdomen soft; abdomen nontender Musculoskeletal: no cyanosis or clubbing, extremities motor strength 5/5 Skin: no rashes, warm and dry Neurologic: moves all extremities and awake; no focal motor deficits and not confused Psychiatric: A+Ox3, euthymic affect Results & Data Vital Signs (Past 12 Hours) Vital Signs Temp Pulse Pulse Resp BP Pulse Ox O2 Del Method 06/04/23 08:09 36.8 C 94 H 18 111/64 96 Room Air 06/04/23 06:45 77 14 96 Room Air 06/04/23 03:06 36.8 C 73 15 143/79 H 93 Room Air 06/03/23 23:18 36.5 C 67 16 151/74 H 96 Room Air 06/03/23 21:57 70
[2023-06-04] MEDS: FOLIC ACID 1 MG TAB PO SCH (09:56)
[2023-06-04] MEDS: EZETIMIBE 10 MG TAB PO SCH (09:56)
[2023-06-04] MEDS: MULTIVITAMIN TAB PO SCH (09:56)
[2023-06-04] MEDS: MAGNESIUM OXIDE 400 MG TAB PO SCH (09:56)
[2023-06-04] MEDS: THIAMINE HCL 100 MG TAB PO SCH (09:56)
[2023-06-04] MEDS: ASPIRIN 81 MG ECTAB PO SCH (09:56)
[2023-06-04] MEDS: METOPROLOL TARTRATE 50 MG TAB PO SCH (09:56)
[2023-06-04] MEDS: CYANOCOBALAMIN (B-12) 500 MCG TABLET PO SCH (09:56)
[2023-06-04] MEDS: PANTOprazole 40 MG TAB PO SCH (09:56)
[2023-06-04] MEDS: POT PHOSPHATE MONOBASIC W/ SOD TAB PO SCH ×2 (09:56→12:08)
[2023-06-04] MEDS: ATORVASTATIN 40 MG TAB PO SCH (09:57)
[2023-06-04] MEDS: HEPARIN SOD 5,000 UNIT/0.5 ML VIAL SQ SCH (09:57)
--- NOTE | 2023-06-04 11:50 | Hospitalist Progress Note ---
Date of Service June 04, 2023 Assessment & Plan (1) Elevated LFTs: (2) Chronic hyponatremia: (3) Hypokalemia: (4) MANISHA (acute kidney injury): (5) Hypotension: (6) Syncope: (7) COPD (chronic obstructive pulmonary disease): (8) Lung nodule: (9) Peripheral neuropathy: (10) Alcohol abuse: (11) CVA (cerebral vascular accident): (12) Carotid artery stenosis: Plan Patient is 68 year old male with PMH HTN, HLD, CVA, COPD, neuropathy, prediabetes, chronic hyponatremia, GERD, tobacco use, ETOH use admitted after a syncopal episode. Syncope Carotid artery stenosis In ER hypotensive with BP 89/64, given 1L NSS with BP up to 106/69 CT head: no acute intracranial abnormality CT c-spine: no acute fracture Carotid doppler with noted Moderate (50-69%) stenosis in the proximal left ICA and bilateral ECAs secondary to atherosclerotic plaque. Vascular surgery consult placed. UA unremarkable Tox drug screen positive for THC- notes he uses medical marijuana ETOH level elevated at 183 EKG sinus rhythm without significant ST changes Syncope may be secondary to orthostatic hypotension Monitor on telemetry for any arrhythmias Fall precautions Carotid artery Stenosis Pt with syncopal episode, Hx of strokes in the past per chart review As noted above, Carotid doppler with noted moderate (50-69%) stenosis in the proximal left ICA and bilateral ECAs secondary to atherosclerotic plaque. CT head: no acute intracranial abnormality Neck CTA and MRI brain ordered and pending Vascular surgery consult placed. Continue statin and aspirin Wheezing Pt with significant scattered wheezing on exam Chest xray notes emphysema, has COPD diagnosis Notes non compliance with home inhalers and has been having SOB with ambulation Currently 93% on RA Scheduled nebulizer treatments ordered for diffuse wheezing Continue to monitor Hypotension In ER hypotensive with BP 89/64, P: 86. In ER given 1L NSS with BP up to 106/69 Was fasting for labs Hold lisinopril, continue metoprolol with hold parameters Received IVF- currently discontinued MANISHA (acute kidney injury) Cr: 2.27 on admission, Cr: 1.0 on 09/23/22 CT Abd/Pelvis: No urinary calculi or hydronephrosis. IVF Hold lisinopril Currently wnl Alcohol abuse ETOH level 183 on admission Drinks 6 beers, 1 shot liquor daily Alcohol withdrawal protocol with Librium, Ativan ETOH cessation encouraged Electrolyte Derangements Hypokalemia Chronic hyponatremia Hypomagnesemia Hypophosphatemia -replete and correct as needed Elevated LFTs T. bili: 0.3, AST: 54 (18 on 09/23/22), ALT: 55 (17 on 09/23/22), Alk Phos: 63 CT abd/pelvis: Hepatic steatosis Recommend ETOH cessation Continue to trend and monitor CVA (cerebral vascular accident) Continue aspirin, atorvastatin HLD (hyperlipidemia) Continue atorvastatin, Zetia Lung nodule Known pulmonary nodule Imaging on admission: 6 mm right middle lobe nodule is unchanged since prior exam. COPD (chronic obstructive pulmonary disease) Scattered wheezing. No fever/chills, increased cough/SOB/sputum production Continue albuterol as needed Encouraged smoking cessation Tobacco abuse Declines nicotine patch GERD (gastroesophageal reflux disease): Continue PPI Peripheral neuropathy Continue duloxetine Prediabetes Stable DVT Prophylaxis: Heparin SQ Diet: HH CODE STATUS: Full code Dispo: PT/OT ordered Admission and Anticipated Discharge Date Admission Date: June 02, 2023 Physical Exam Physical Exam: General: Alert, oriented. No acute distress Skin: bruising noted on face, around right eye Psych: Appropriate mood and affect Neuro: No gross deficits HEENT: right eye ecchymotic CV: RRR Resp: Wheezing noted bilaterally Abdomen. Soft, nontender, nondistended. Results & Data Results & Data Vital Signs (Past 12 Hours) Vital Signs Temp Pulse Resp BP Pulse Ox O2 Del Method 06/04/23 11:03 78 16 97 Room Air 06/04/23 10:16 Room Air 06/04/23 08:09 36.8 C 94 H 18 111/64 96 Room Air 06/04/23 06:45 77 14 96 Room Air 06/04/23 03:06 36.8 C 73 15 143/79 H 93 Room Air (6) Syncope Syncope type: unspecified Qualified Code(s): R55 - Syncope and collapse
--- NOTE | 2023-06-04 12:14 | Discharge Summary ---
Discharge Summary Date of Service June 04, 2023 Notes For Next Care Provider Prescribed a daily Combivent inhaler for noted emphysema on imaging and persistent wheezing on exam. Pt with noted atherosclerotic plaques in carotid artery, please follow/monitor Lisinopril discontinued and metoprolol dose decreased to 25mg BID, please continue to monitor blood pressure after discharge and resume /titrate medications as needed Lung nodule noted on CT abd/pelvis as probably benign- consider dedicated CT chest imaging on discharge Medication Changes From Visit Prescribed a daily Combivent inhaler for noted emphysema on imaging and persistent wheezing on exam. Lisinopril discontinued until PCP follow up Metoprolol tartrate dose decreased to 25mg BID Admission HPI Per Admitting Provider Patient is 68 year old male with PMH HTN, HLD, CVA, COPD, neuropathy, prediabetes, chronic hyponatremia, GERD, tobacco use, ETOH use presented to ER with c/o syncope. History obtained from patient and outpatient office notes. Patient was seen at [facility] today for routine fasting labs. went outside to smoke a cigarette when had sudden onset of syncope. He states remembers being outside and next thing he remembers is being in hospital. Patient denies any dizziness, N/V, CP, SOB, vision changes prior. Patient did hit his head and has abrasions. Patient did not have morning medications or breakfast today. Last ETOH intake was last night. drinks 6 beers and one shoot liquor daily. feels like he has been in his normal health. Currently states he feels well. Upon ER arrival patient noted to by hypotensive with BP 89/64. Denies fever/chills, diaphoresis, N/V/D/C, MARES, dizziness, vision changes, neck pain, CP, SOB, orthopnea, palpitations, increased cough, sore throat, otalgia, rhinorrhea, abdominal pain, paresthesias, extremity weakness, extremity edema, rashes, urinary symptoms. Denies history alcohol withdrawal seizures or DT's. Admission Exam Per Admitting Provider General: no distress, WDWN Head: normocephalic, +abrasion ecchymosis right forehead Eyes: PERRL, EOM's intact, conjunctiva non-injected, anicteric ENT: normal inspection external ears, nose, mucous membranes moist Neck: supple, trachea midline Lungs: no respiratory distress,+slight scattered wheezing, no rhonchi/rales CV: RRR, no murmur, no pretibial edema Abd: normal BS, soft, non-tender Ext: no cyanosis, no calf tenderness Neuro: A&O x 3, no focal deficits noted, normal affect Skin: warm, dry Principal Dx & Hospital Course #1 = Principal Diagnosis (1) Elevated LFTs: (2) Chronic hyponatremia: (3) Hypokalemia: (4) MANISHA (acute kidney injury): (5) Hypotension: (6) Syncope: (7) COPD (chronic obstructive pulmonary disease): (8) Lung nodule: (9) Peripheral neuropathy: (10) Alcohol abuse: (11) CVA (cerebral vascular accident): (12) Carotid artery stenosis: Plan Patient is 68 year old male with PMH HTN, HLD, CVA, COPD, neuropathy, prediabetes, chronic hyponatremia, GERD, tobacco use, ETOH use admitted after a syncopal episode. Syncope Carotid artery stenosis In ER hypotensive with BP 89/64, given 1L NSS with BP up to 106/69 CT head: no acute intracranial abnormality Brain MRI with no acute findings CT c-spine: no acute fracture Carotid doppler with noted Moderate (50-69%) stenosis in the proximal left ICA and bilateral ECAs secondary to atherosclerotic plaque. Neck CTA noted "Atherosclerosis of the proximal left internal carotid artery results in a stenotic portion measuring 2.8 mm compared to a more distal nonstenotic portion measuring 3.4 mm. This results in 20% stenosis by NASCET criteria." Vascular surgery consult placed - Advised that stenosis noted does not require vascular surgical intervention or surveillance UA unremarkable Tox drug screen positive for THC- notes he uses medical marijuana ETOH level elevated at 183 EKG sinus rhythm without significant ST changes Syncope may be secondary to orthostatic hypotension- resolved on discharge -Lisinopril was held, continue to hold after discharge. PCP follow up to determine need to re-start. -Metoprolol tartrate decreased to 25mg BID on discharge from 50mg BID. Will defer to PCP on need to titrate up as needed. Hypotension In ER hypotensive with BP 89/64, P: 86. In ER given 1L NSS with BP up to 106/69 Was fasting for labs when he had his syncopal event, also on metoprolol 50mg BID and lisinopril 20mg BID Lisinopril was held, continue to hold after discharge. PCP follow up to dete rmine need to re-start. Metoprolol tartrate decreased to 25mg BID on discharge. Will defer to PCP on need to titrate up as needed. Carotid artery Stenosis Pt with syncopal episode, Hx of strokes in the past per chart review As noted above, Carotid doppler with noted moderate (50-69%) stenosis in the proximal left ICA and bilateral ECAs secondary to atherosclerotic plaque. CT head: no acute intracranial abnormality Neck CTA noted "Atherosclerosis of the proximal left internal carotid artery results in a stenotic portion measuring 2.8 mm compared to a more distal nonst enotic portion measuring 3.4 mm. This results in 20% stenosis by NASCET criteria." Vascular surgery consult placed - Advised that stenosis noted does not require vascular surgical intervention or surveillance Continue statin and aspirin Wheezing Pt with significant scattered wheezing on exam Chest xray notes emphysema, also noted on neck CTA Lung nodule noted on CT abd/pelvis as probably benign- consider dedicated CT chest imaging on discharge Pt has COPD diagnosis Notes non compliance with home inhalers and has been having SOB with ambulation Currently 93% on RA Scheduled nebulizer treatments ordered for diffuse wheezing- states it has been helping Discharged with a daily Combivent inhaler PCP followup- consider pulmonology referral as well MANISHA (acute kidney injury) Cr: 2.27 on admission, previously Cr: 1.[address] Abd/Pelvis: No urinary calculi or hydronephrosis. IVF Holding lisinopril as above Creatinine within normal limits on discharge. Alcohol abuse ETOH level 183 on admission Drinks 6 beers, 1 shot liquor daily Alcohol withdrawal protocol with Librium, Ativan ETOH cessation encouraged Electrolyte Derangements Hypokalemia Chronic hyponatremia Hypomagnesemia Hypophosphatemia -replete and correct as needed Elevated LFTs T. bili: 0.3, AST: 54 (18 on 09/23/22), ALT: 55 (17 on 09/23/22), Alk Phos: 63 CT abd/pelvis: Hepatic steatosis Recommend ETOH cessation Continue to trend and monitor CVA (cerebral vascular accident) Continue aspirin, atorvastatin HLD (hyperlipidemia) Continue atorvastatin, Zetia Lung nodule Known pulmonary nodule Imaging on admission: 6 mm right middle lobe nodule is unchanged since prior exam. consider dedicated CT chest imaging on discharge COPD (chronic obstructive pulmonary disease) Scattered wheezing. No fever/chills, increased cough/SOB/sputum production Continue albuterol as needed Encouraged smoking cessation Prescribed a daily Combivent inhaler for noted emphysema on imaging and persistent wheezing on exam. Tobacco abuse Declines nicotine patch GERD (gastroesophageal reflux disease): Continue PPI Peripheral neuropathy Continue duloxetine Prediabetes Stable Discharge Exam General: Alert, oriented. No acute distress Skin: bruising noted on face, around right eye Psych: Appropriate mood and affect Neuro: No gross deficits HEENT: right eye ecchymotic CV: RRR Resp: Wheezing noted bilaterally Abdomen. Soft, nontender, nondistended. Updated Medication List Medication Instructions Recorded Confirmed Type albuterol sulfate 90 mcg/actuation 2 puff inhalation DIRECTED PRN 09/09/22 06/02/23 History aerosol inhaler Shortness Of Breath aspirin 81 mg tablet,delayed 81 mg PO DAILY 09/09/22 06/02/23 History release atorvastatin 80 mg tablet 80 mg PO DAILY 09/09/22 06/02/23 History cholecalciferol (vitamin D3) 25 25 mcg PO DAILY 09/09/22 06/02/23 History mcg (1,000 unit) capsule (Vitamin D3) cyanocobalamin (vitamin B-12) 1,000 mcg PO DAILY 09/09/22 06/02/23 History 1,000 mcg tablet (Vitamin B-12) doxepin 6 mg tablet 6 mg PO HS PRN Sleep 09/09/22 06/02/23 History ezetimibe 10 mg tablet (Zetia) 10 mg PO DAILY 09/09/22 06/02/23 History multivitamin 1 tab PO DAILY 09/09/22 06/02/23 History omeprazole 20 mg tablet,delayed 20 mg PO DAILY 09/09/22 06/02/23 History release docusate sodium 100 mg capsule 100 mg PO BID PRN Constipation #30 09/15/22 06/02/23 Rx caps folic acid 1 mg tablet 1 mg PO DAILY #30 tabs 09/15/22 06/02/23 Rx thiamine HCl (vitamin B1) 100 mg 100 mg PO DAILY #30 tabs 09/15/22 06/02/23 Rx tablet ipratropium 20 mcg-albuterol 100 1 puff inhalation Q6H #4 grams 06/04/23 Rx mcg/actuation mist for inhalation (Combivent Respimat) metoprolol tartrate 25 mg tablet 25 mg PO BID #60 tabs 06/04/23 Rx Hospital Stay Data Consultations 06/02/23 13:04 ED Decision to Admit Stat 06/03/23 16:36 Consult Vascular Surgery Routine Diagnostic Imagining Performed 06/02/23 11:20 CT cervical spine wo con Stat CT head/brain wo con Stat 06/02/23 12:54 CT abd pelvis wo con Stat 06/03/23 US carotid doppler BI Stat 06/03/23 18:45 CTA neck with con [CT angio neck with con] Routine MRI Brain [MR brain wo/w con] Routine Cervical Spine CT 06/02/23 11:20 CT OF THE CERVICAL SPINE WITHOUT CONTRAST CLINICAL HISTORY: syncope head strike, etoh COMPARISON STUDY: Cervical spine CT September 09, 2022. TECHNIQUE: Helical axial images of the cervical spine were obtained without IV contrast. Sagittal and coronal reconstructions were viewed. Automated exposure control was utilized for the study. A dose lowering technique was utilized adhering to the principles of ALARA. FINDINGS: Alignment of the cervical spine is anatomic. Vertebral body heights are maintained. No acute cervical spine fracture or subluxation is present. There is no prevertebral edema. Facet joints are intact. Moderate multilevel disc space narrowing, osteophytosis and facet arthrosis is present. Emphysema is noted within visualized portions of the lung apices. As before, the right mastoid air cells are partially opacified. There is also fluid within the right middle ear which was present on prior exam. IMPRESSION: No acute cervical spine fracture or subluxation. ACT 112: Negative or not required by law. Electronically signed by: Edmund Steinberg M.D. 06/02/2023 12:45 PM Chest X-Ray 06/02/23 11:20 XR chest 1V portable CLINICAL HISTORY: sycope TECHNIQUE: Single frontal radiograph of the chest was obtained. Comparison: Comparison is made to chest radiograph 09/09/2022 FINDINGS: No lines and tubes are seen. Calcified aortic knob is seen. Emphysema and mild interstitial thickening again seen. No evidence of pleural effusion or pneumothorax. IMPRESSION: No acute chest disease. ACT 112: Negative or not required by law. Electronically signed by: Isaias Malave M.D. 06/02/2023 11:[address] 06/02/23 11:20 CT OF THE HEAD WITHOUT CONTRAST CLINICAL HISTORY: syncope head strike, etoh COMPARISON STUDY: Head CT September 09, 2022. TECHNIQUE: Helical axial images of the head were obtained without IV contrast. Automated exposure control was utilized for the study. A dose lowering technique was utilized adhering to the principles of ALARA. FINDINGS: No acute intracranial hemorrhage, midline shift or mass effect is present. The ventricular system is unremarkable. The basal cisterns are patent. No extra-axial collections are present. There are no findings to suggest acute dural sinus thrombosis or acute territorial infarct. White matter hypodensities are unchanged. A few old lacunar infarcts are unchanged. The appearance the brain is unchanged. There is no acute calvarial fracture. Right mastoid air cells are opacified. This is unchanged. IMPRESSION: 1. No acute intracranial findings. No change in appearance of the brain. 2. No acute calvarial fracture. ACT 112: Negative or not required by law. Electronically signed by: Edmund Steinberg M.D. 06/02/2023 12:41 PM Abdomen/Pelvis CT 06/02/23 12:54 CT OF THE ABDOMEN AND PELVIS WITHOUT CONTRAST CLINICAL HISTORY: Acute renal failure. Abdominal pain. COMPARISON STUDY: CT of the abdomen and pelvis September 09, 2022. TECHNIQUE: Axial images of the abdomen and pelvis were obtained without IV contrast. Images were reviewed in the axial, sagittal, and coronal planes. Automated exposure control was utilized for the study. A dose lowering technique was utilized adhering to the principles of ALARA. FINDINGS: Emphysema is noted within the lower lungs. A 6 mm right middle lobe nodule is unchanged since prior exam. This is probably benign. There is extensive coronary artery calcification. No pneumatosis, free air or portal venous gas is present. No renal, ureteral or bladder calculi are present. Renal sinus calcifications are vascular in etiology. There is no hydronephrosis. Evaluation of the remainder of the abdomen and pelvis is suboptimal on this unenhanced exam. There is hepatic steatosis. Spleen, adrenal glands and pancreas are unremarkable. There is no evidence for a bowel obstruction. The appendix is normal. There is sigmoid diverticulosis without evidence for acute diverticulitis. Extensive plaque of the abdominal aorta and iliac arteries is noted. The abdominal aorta is ectatic. No lymphadenopathy is present. There are no fluid collections. There is no ascites. Old T12 compression fracture is incidentally noted. No acute fractures are identified. IMPRESSION: 1. No urinary calculi or hydronephrosis. 2. No acute process within the abdomen or pelvis on unenhanced exam. 3. Sigmoid diverticulosis. No evidence for acute diverticulitis. 4. Hepatic steatosis. ACT 112: Negative or not required by law. Electronically signed by: Edmund Steinberg M.D. 06/02/2023 2:13 PM Carotid Doppler Study 06/03/23 00:00 Exam(s): US CAROTID EXAM: US Duplex Bilateral Extracranial Arteries CLINICAL HISTORY: Reason for exam: syncope. TECHNIQUE: Real-time duplex ultrasound scan of the extracranial arteries integrating B-mode two-dimensional vascular structure, Doppler spectral analysis and color flow Doppler imaging. COMPARISON: No relevant prior studies available. FINDINGS: Right common carotid artery: Unremarkable. No occlusion or significant stenosis on color flow and spectral Doppler imaging. Right internal carotid artery: Atherosclerotic plaque in the proximal right ICA/carotid bifurcation. No occlusion or significant stenosis on color flow and spectral Doppler imaging. Right external carotid artery: Increased PSV of 125 cm/s in the proximal right ECA. No occlusion or significant stenosis on color flow and spectral Doppler imaging. Right vertebral artery: Unremarkable. Antegrade flow. Right ICA/CCA ratio: Unremarkable. Within normal limits. Left common carotid artery: Unremarkable. No occlusion or significant stenosis on color flow and spectral Doppler imaging. Left internal carotid artery: Increased PSV of 129 cm/s in the proximal left ICA. Atherosclerotic plaque within the proximal left ICA/carotid bifurcation. No occlusion or significant stenosis on color flow and spectral Doppler imaging. Left external carotid artery: Increased PSV of 136 cm/s in the proximal left ECA. No occlusion or significant stenosis on color flow and spectral Doppler imaging. Left vertebral artery: Unremarkable. Antegrade flow. Left ICA/CCA ratio: Unremarkable. Within normal limits. Lymph nodes: Unremarkable. No lymphadenopathy. CAROTID STENOSIS REFERENCE USING SRU CRITERIA: Mild - <50% stenosis. ICA PSV is less than 125 cm/second and plaque or intimal thickening is visible. Moderate - 50-69% stenosis. ICA PSV is 125 to 230 cm/second and plaque is visible. Severe - 70-94% stenosis. ICA PSV is more than 230 cm/second and visible plaque with lumen narrowing is seen. Near occlusion - 95-99% stenosis. ICA PSV is variable and significant plaque with luminal narrowing is seen. Occluded - 100% stenosis. No flow identified. IMPRESSION: Moderate (50-69%) stenosis in the proximal left ICA and bilateral ECAs secondary to atherosclerotic plaque. Electronically signed by: Jesus Cristobal M.D. 06/03/23 05:12 AM Brain MRI 06/03/23 18:45 Exam(s): MRI HEAD W/WO Contrast IV Amt: 8.5ml gadavist EXAM: MR Head Without and With Intravenous Contrast CLINICAL HISTORY: Syncope. TECHNIQUE: Magnetic resonance images of the head/brain without and with intravenous contrast in multiple planes. CONTRAST: Patient received 8.5ml Gadavist of IV contrast COMPARISON: CT head 06/02/2023 FINDINGS: Brain: No acute infarct. No intracranial hemorrhage, mass-effect or midline shift. Mild periventricular white matter T2/flair signal abnormalities are most consistent with chronic microangiopathy. No abnormal enhancement. Ventricles: Unremarkable. No ventriculomegaly. Bones/joints: Unremarkable. No acute fracture. Sinuses: Mild mucosal thickening of the visualized paranasal sinuses. No acute sinusitis. Mastoid air cells: Small right mastoid effusion. Orbits: Unremarkable as visualized. IMPRESSION: No acute findings in the head/brain. Electronically signed by: Kyleigh Khanna MD 06/03/23 21:52 PM Neck CTA 06/03/23 18:45 Exam(s): CTA NECK With Contrast IV Amt: 119 ml optiray 320 EXAM: CT Angiography Neck With Intravenous Contrast CLINICAL HISTORY: Syncope. TECHNIQUE: Routine carotid CT angiography protocol was performed with intravenous contrast. NASCET criteria using the distal ICAs for comparison were used for evaluation of stenoses. CTDI is 22.84 mGy and DLP is 409.12 mGy-cm. Automated exposure control was utilized for the study. A dose lowering technique was utilized adhering to the principles of ALARA. MIP reconstructed images were created and reviewed. CONTRAST: Patient received 119 ml optiray 320 of IV contrast COMPARISON: Carotid ultrasound 06/03/2023 FINDINGS: VASCULATURE: Right common carotid artery: There is mild atherosclerosis of the right common carotid artery without significant stenosis. No dissection. Right internal carotid artery: Moderate atherosclerosis of the right carotid bulb is noted without significant stenosis. Mild atherosclerosis of the intracranial portions of the right internal carotid artery without significant stenosis. There is mild atherosclerosis of the proximal right ICA without significant stenosis. No dissection. Right external carotid artery: Unremarkable. No occlusion. Right vertebral artery: Minimal atherosclerosis of the right vertebral artery without significant stenosis. No dissection. Left common carotid artery: There is moderate atherosclerosis of the left common carotid artery without significant stenosis. No dissection. Left internal carotid artery: Atherosclerosis of the proximal left internal carotid artery results in a stenotic portion measuring 2.8 mm compared to a more distal nonstenotic portion measuring 3.4 mm. This results in 20% stenosis by NASCET criteria. Mild atherosclerosis of the intracranial portion of the left internal carotid artery without significant stenosis. There is mild atherosclerosis of the left carotid bulb without significant stenosis. No dissection. Left external carotid artery: Unremarkable. No occlusion. Left vertebral artery: Minimal atherosclerosis of the left vertebral artery without significant stenosis. No dissection. NECK: Bones/joints: Unremarkable. No acute fracture. Soft tissues: Unremarkable. Lung apices: Emphysema. CAROTID STENOSIS REFERENCE USING NASCET CRITERIA: % ICA stenosis = (1 - narrowest ICA diameter/diameter of distal cervical ICA) x 100. Mild - <50% stenosis. Moderate - 50-69% stenosis. Severe - 70-94% stenosis. Near occlusion - 95-99% stenosis. Occluded - 100% stenosis. IMPRESSION: 1. No acute finding of the arteries of the neck. 2. Emphysema. Electronically signed by: Kyleigh Khanna MD 06/03/23 21:28 PM Discharge Instructions Given to Patient (Per Discharging Provider) Mr. Fernandez, You had an episode where you lost consciousness. We did lots of tests and imaging and believe that you were dehydrated causing your symptoms. Your blood pressure improved after fluids. We did note that you have atherosclerotic plaques in the carotid artery on the left that your primary care provider will help you keep an eye on. You saw Vascular Surgery in the hospital and they did not think it warranted surgical intervention. We recommend that you continue taking your home statin and aspirin medication. Not smoking will also help with that. It was noted that you had emphysema and you were wheezing on exam. We are discharging you with a daily inhaler to use with your home albuterol inhaler. Also please do not take your home lisinopril dose until you follow up with your primary care provider. We also decreased your home metoprolol dose as that might be a cause of your low blood pressure as well. Please keep close follow up with your primary care provider after discharge for continued monitoring of your symptoms. Please do not hesitate to return to the emergency room should your symptoms return. It was a pleasure taking care of you while you were here. Total Time Total Time Spent Total Time Spent (In Minutes): >30 minutes
[2023-06-05 10:38] LABS: Marijuana Quant, GCMS Urine 21 ng/mL (<5)
[2023-06-05] MEDS ORDERED: chlordiazePOXIDE HCl 5 MG CAP PO SCH (23:00)
== END 2023-06-04 15:41 | disposition home or self-care (01) | DRG 68 ==
LOC: ED 10:31 → EDINP 13:43 → SUATTDRO 13:43 → EDINP 16:08 → 4W 17:27
DX: R91.1 Solitary pulmonary nodule; I95.9 Hypotension, unspecified; E87.1 Hypo-osmolality and hyponatremia; E53.8 Deficiency of other specified B group vitamins; J44.9 Chronic obstructive pulmonary disease, unspecified; F10.129 Alcohol abuse with intoxication, unspecified; E87.6 Hypokalemia; G62.9 Polyneuropathy, unspecified; F17.210 Nicotine dependence, cigarettes, uncomplicated; Z79.82 Long term (current) use of aspirin; Z86.73 Personal history of transient ischemic attack (TIA), and cerebral infarction without residual deficits; I65.23 Occlusion and stenosis of bilateral carotid arteries; R73.03 Prediabetes; N17.9 Acute kidney failure, unspecified; J43.9 Emphysema, unspecified; R55 Syncope and collapse